=== PATIENT | male | born 1960 | race Caucasian/White ===

== ENCOUNTER 2018-04-04 06:08 | Inpatient (IN) | payer SELFPAY ==
[~2018-04-04] VITALS: Ht 188 cm; Wt 117.5 kg
[2018-04-04] VITALS (7 sets, daily range): BP systolic 103–140; BP diastolic 59–87; PULSE 70–90; RESP 17–20; TEMP 97.6–99.8; O2SAT 97–100
[~2018-04-04 06:08] MED LIST: LISI10TA3 PO; TERA1CAP3 PO
[2018-04-04] MEDS ORDERED: SODIUM CHLOR 0.9% 1000 ML INJ 1,000 ML IV SCH (07:04)
--- NOTE | 2018-04-04 07:10 | PD ---
HPI Chief Complaint: General Weakness Time Seen by Provider: 06:52 Travel History International Travel<30 days: No Contact w/Intl Traveler<30days: No Traveled to known affect area: No History of Present Illness HPI The patient is a 57-year-old male who presents to the emergency department for lethargy, epigastric discomfort, decreased oral intake, and black stool. The patient states his symptoms started 5 days ago with a fever that was as high as 101. The patient has been taking ibuprofen for the fever, states the fever improved, but then he developed reflux symptoms and epigastric discomfort. The patient states he has difficulty eating secondary to the epigastric discomfort. He now notes several episodes of black stool but is slightly loose. He denies any history of peptic ulcer disease, gastritis, or upper GI bleed. He does complain of diffuse lethargy and states he has difficulty lifting his head off of the bed. The patient does have a history of hypertension for which he takes lisinopril, however, has not taken his lisinopril in several days. He does note mild shortness of breath but denies any chest pain. He denies abdominal pain at rest, but does state he has abdominal discomfort in epigastrium area after eating. Symptoms are moderate. He does not currently have a primary physician. He denies any alcohol use. PFSH Past Medical History Arthritis: Yes Asthma: No Blood Disorders: No Anxiety: No Depression: No Heart Rhythm Problems: No Cancer: No Cardiovascular Problems: No High Cholesterol: No Chemotherapy: No Chest Pain: No Congestive Heart Failure: No COPD: No Cerebrovascular Accident: No Diabetes: No Endocrine: No GERD: No Genitourinary: No Hiatal Hernia: No Immune Disorder: No Musculoskeletal: Yes Neurologic: Yes Psychiatric: No Reproductive: No Respiratory: No Migraines: No Radiation Therapy: No Seizures: No Sleep Apnea: No Thyroid Disease: No Ulcer: No Tetanus Vaccination: < 5 Years Influenza Vaccination: No Past Surgical History Abdominal Surgery: Yes (hernia sx 28 years ago) Cardiac Surgery: No Ear Surgery: No Endocrine Surgery: No Eye Surgery: No Genitourinary Surgery: No Gynecologic Surgery: No Oral Surgery: No Thoracic Surgery: No Other Surgery: Yes (INGUINAL HERNIA REPAIR) Social History Alcohol Use: Yes (EVERY COUPLE DAYS, BEER, THURSDAY) Tobacco Use: No Substance Use: Yes (MARIJUANA, EVERY COUPLE OF DAYS) Allergies-Medications (Allergen,Severity, Reaction): Coded Allergies: No Known Allergies (Unverified Adverse Reaction, Unknown, 04/04/18) Reported Meds & Prescriptions Reported Meds & Active Scripts Active Lisinopril 10 Mg Tab 10 Mg PO BID Review of Systems Except as stated in HPI: all other systems reviewed are Neg General / Constitutional: Positive: Fever HENT: Positive: Lightheadedness Cardiovascular: No: Chest Pain or Discomfort Respiratory: Positive: Shortness of Breath Gastrointestinal: Positive: Nausea, Abdominal Pain (Epigastric discomfort after eating), Changes in Bowel Habits, No: Vomiting, Diarrhea Musculoskeletal: Positive: Weakness Skin: Positive Other (Notes a chronic ulceration on the bottom of the left foot ) Neurologic: Positive: Weakness, Other (History of neuropathy on the feet) Endocrine: No: Other (Denies any history of diabetes) Physical Exam Narrative GENERAL: Awake, alert, somewhat lethargic 57-year-old male who appears his stated age and is in no acute respiratory distress. SKIN: Focused skin assessment warm/dry. HEAD: Atraumatic. Normocephalic. EYES: Pupils equal and round. 3 mm bilateral and reactive. EOMs are intact. ENT: No nasal bleeding or discharge. Slightly dry mucous membranes. NECK: Trachea midline. No JVD. CARDIOVASCULAR: Regular rate and rhythm. No murmur appreciated. Heart rate in the 80s. RESPIRATORY: No accessory muscle use. Clear to auscultation. Breath sounds equal bilaterally. GASTROINTESTINAL: Abdomen soft, non-tender, nondistended. No rebound tenderness. Rectal: Stool is black on digital exam that is grossly guaiac positive. MUSCULOSKELETAL: Superficial, chronic appearing wound on the bottom of the left foot over the first MTP. NEUROLOGICAL: Awake and alert. No obvious cranial nerve deficits. Motor grossly within normal limits. Normal speech. PSYCHIATRIC: Appropriate mood and affect; insight and judgment normal. Data Data Last Documented VS Vital Signs Date Time Temp Pulse Resp B/P (MAP) Pulse Ox O2 Delivery O2 Flow Rate FiO2 04/04/18 08:30 71 18 116/67 (83) 99 04/04/18 07:51 Room Air 04/04/18 06:18 97.6 Orders Orders Complete Blood Count With Diff (04/04/18 07:04) Comprehensive Metabolic Panel (04/04/18 07:04) Lipase (04/04/18 07:04) Prothrombin Time / Inr (Pt) (04/04/18 07:04) Act Partial Throm Time (Ptt) (04/04/18 07:04) Urinalysis - C+S If Indicated (04/04/18 07:04) Type And Screen (04/04/18 07:04) Chest, Single Ap (04/04/18 07:04) Ecg Monitoring (04/04/18 07:04) Iv Access Insert/Monitor (04/04/18 07:04) Orthostatic Vital Signs (04/04/18 07:04) Oximetry (04/04/18 07:04) Pantoprazole Inj (Protonix Inj) (04/04/18 07:15) Sodium Chlor 0.9% 1000 Ml Inj (Ns 1000 M (04/04/18 07:04) Sodium Chloride 0.9% Flush (Ns Flush) (04/04/18 07:15) Troponin I (04/04/18 07:04) Creatine Kinase (Cpk) (04/04/18 07:04) Electrocardiogram (04/04/18 06:33) Admit Order (Ed Use Only) (04/04/18 09:08) Labs Laboratory Tests Test 04/04/18 07:30 04/04/18 07:45 04/04/18 08:30 White Blood Count 9.6 TH/MM3 Red Blood Count 5.52 MIL/MM3 Hemoglobin 16.4 GM/DL Hematocrit 47.5 % Mean Corpuscular Volume 85.9 FL Mean Corpuscular Hemoglobin 29.7 PG Mean Corpuscular Hemoglobin Concent 34.5 % Red Cell Distribution Width 13.5 % Platelet Count 315 TH/MM3 Mean Platelet Volume 8.3 FL Neutrophils (%) (Auto) 68.9 % Lymphocytes (%) (Auto) 18.5 % Monocytes (%) (Auto) 11.2 % Eosinophils (%) (Auto) 0.3 % Basophils (%) (Auto) 1.1 % Neutrophils # (Auto) 6.6 TH/MM3 Lymphocytes # (Auto) 1.8 TH/MM3 Monocytes # (Auto) 1.1 TH/MM3 Eosinophils # (Auto) 0.0 TH/MM3 Basophils # (Auto) 0.1 TH/MM3 CBC Comment DIFF FINAL Differential Comment Blood Urea Nitrogen 48 MG/DL Creatinine 1.36 MG/DL Random Glucose 113 MG/DL Total Protein 8.5 GM/DL Albumin 3.1 GM/DL Calcium Level 9.3 MG/DL Alkaline Phosphatase 81 U/L Aspartate Amino Transf (AST/SGOT) 19 U/L Alanine Aminotransferase (ALT/SGPT) 20 U/L Total Bilirubin 0.4 MG/DL Sodium Level 136 MEQ/L Potassium Level 3.8 MEQ/L Chloride Level 102 MEQ/L Carbon Dioxide Level 20.5 MEQ/L Anion Gap 14 MEQ/L Estimat Glomerular Filtration Rate 54 ML/MIN Total Creatine Kinase 42 U/L Troponin I LESS THAN 0.02 NG/ML Lipase 110 U/L Urine Color YELLOW Urine Turbidity HAZY Urine pH 5.5 Urine Specific [place] 1.027 Urine Protein 30 mg/dL Urine Glucose (UA) NEG mg/dL Urine Ketones NEG mg/dL Urine Occult Blood NEG Urine Nitrite NEG Urine Bilirubin NEG Urine Urobilinogen LESS THAN 2.0 MG/DL Urine Leukocyte Esterase NEG Urine RBC 1 /hpf Urine WBC 2 /hpf Urine Squamous Epithelial Cells 1 /hpf Urine Hyaline Casts 13 /lpf Urine Granular Casts 11 /lpf Urine Mucus FEW /lpf Microscopic Urinalysis Comment CULT NOT INDICATED Prothrombin Time 10.9 SEC Prothromb Time International Ratio 1.1 RATIO Activated Partial Thromboplast Time 26.8 SEC MDM Medical Decision Making Medical Screen Exam Complete: Yes Emergency Medical Condition: Yes Medical Record Reviewed: Yes Interpretation(s) EKG reveals junctional rhythm with inverted P waves. Q waves noted in lead II, III, and aVF. Laboratory Tests Test 04/04/18 07:30 04/04/18 07:45 04/04/18 08:30 White Blood Count 9.6 TH/MM3 Red Blood Count 5.52 MIL/MM3 Hemoglobin 16.4 GM/DL Hematocrit 47.5 % Mean Corpuscular Volume 85.9 FL Mean Corpuscular Hemoglobin 29.7 PG Mean Corpuscular Hemoglobin Concent 34.5 % Red Cell Distribution Width 13.5 % Platelet Count 315 TH/MM3 Mean Platelet Volume 8.3 FL Neutrophils (%) (Auto) 68.9 % Lymphocytes (%) (Auto) 18.5 % Monocytes (%) (Auto) 11.2 % Eosinophils (%) (Auto) 0.3 % Basophils (%) (Auto) 1.1 % Neutrophils # (Auto) 6.6 TH/MM3 Lymphocytes # (Auto) 1.8 TH/MM3 Monocytes # (Auto) 1.1 TH/MM3 Eosinophils # (Auto) 0.0 TH/MM3 Basophils # (Auto) 0.1 TH/MM3 CBC Comment DIFF FINAL Differential Comment Blood Urea Nitrogen 48 MG/DL Creatinine 1.36 MG/DL Random Glucose 113 MG/DL Total Protein 8.5 GM/DL Albumin 3.1 GM/DL Calcium Level 9.3 MG/DL Alkaline Phosphatase 81 U/L Aspartate Amino Transf (AST/SGOT) 19 U/L Alanine Aminotransferase (ALT/SGPT) 20 U/L Total Bilirubin 0.4 MG/DL Sodium Level 136 MEQ/L Potassium Level 3.8 MEQ/L Chloride Level 102 MEQ/L Carbon Dioxide Level 20.5 MEQ/L Anion Gap 14 MEQ/L Estimat Glomerular Filtration Rate 54 ML/MIN Total Creatine Kinase 42 U/L Troponin I LESS THAN 0.02 NG/ML Lipase 110 U/L Urine Color YELLOW Urine Turbidity HAZY Urine pH 5.5 Urine Specific [place] 1.027 Urine Protein 30 mg/dL Urine Glucose (UA) NEG mg/dL Urine Ketones NEG mg/dL Urine Occult Blood NEG Urine Nitrite NEG Urine Bilirubin NEG Urine Urobilinogen LESS THAN 2.0 MG/DL Urine Leukocyte Esterase NEG Urine RBC 1 /hpf Urine WBC 2 /hpf Urine Squamous Epithelial Cells 1 /hpf Urine Hyaline Casts 13 /lpf Urine Granular Casts 11 /lpf Urine Mucus FEW /lpf Microscopic Urinalysis Comment CULT NOT INDICATED Last Impressions Chest X-Ray 04/04/18 0704 Signed Impressions: CONCLUSION: Negative examination. Differential Diagnosis Differential diagnosis includes acute kidney injury, acute renal failure, dehydration, upper GI bleed, peptic ulcer disease, gastritis, electrolyte abnormality, pneumonia, UTI, symptomatic anemia. Narrative Course IV was established, labs are drawn and sent, and the patient was placed on cardiac telemetry monitoring and continuous pulse oximetry monitoring. EKG was ordered and interpreted. Chest x-ray was obtained. Type and screen was ordered. The patient was administered IV fluids and Protonix. The patient's hemoglobin was within the normal range, however, BUN was elevated at 48 with a creatinine of 1.36 consistent with azotemia, possibly from upper GI bleed and dehydration. The patient's blood pressure initially was in the systolic 90s, however, did improve with IV fluids. The patient still has continuing lethargy , he does appear to have a GI upper GI bleed, may be secondary to peptic ulcer disease from nonsteroidal anti-inflammatory use as well as underlying dehydration with hemoconcentration. Therefore, the patient will be 23 hour observation. He may benefit from serial CBCs, IV hydration, and if bleeding persists, evaluation by gastroenterology. [facility] Point of Care Internal Pos. & Neg. Controls: Passed Fecal Specimen Occult Blood: Positive Physician Communication Physician Communication The on-call medical service was paged for 23 hour observation. I discussed the patient with the resident who agree with admission to Dr. Johnson. Diagnosis Primary Impression: Upper GI bleed Additional Impression: Dehydration Admitting Information Admitting Physician Requests: Observation Condition: Stable Cory Packer MD Apr 04, 2018 07:10
[2018-04-04] MEDS ORDERED: PANTOPRAZOLE SODIUM 40 MG VIAL IVP ONE (07:15)
[2018-04-04] MEDS ORDERED: SODIUM CHLORIDE 0.9% FLUSH 10 ML FLUSH IVF PRN (07:15)
--- NOTE | 2018-04-04 07:35 | RADRPT ---
EXAM DATE: 04/04/2018 7:25 AM EDT AGE/SEX: 57 years / Male INDICATIONS: Short of breath. Weakness. CLINICAL DATA: This is the patient's initial encounter. Patient reports that signs and symptoms have been present for 1 week and indicates a pain score of 0/10. MEDICAL/SURGICAL HISTORY: None. . Inguinal hernia repair. COMPARISON: No prior exams available for comparison. FINDINGS: A single AP view of the chest demonstrates the lungs to be symmetrically aerated without evidence of mass, infiltrate or effusion. The cardiomediastinal contours are unremarkable. Osseous structures a re intact. CONCLUSION: Negative examination. Electronically signed by: Shilo Cantu MD 04/04/2018 7:34 AM EDT
[2018-04-04 08:02] LABS: AUTOMATED NEUTROPHIL # 6.6 TH/MM3 (1.8-7.7); BASOPHIL # 0.1 TH/MM3 (0-0.2); BASOPHIL % 1.1 % (0.0-2.0); EOSINOPHIL % 0.3 % (0.0-4.0); HEMATOCRIT 47.5 % (39.0-51.0); HEMOGLOBIN 16.4 GM/DL (13.0-17.0); LYMPH % 18.5 % (9.0-44.0); LYMPHOCYTE # 1.8 TH/MM3 (1.0-4.8); MEAN CELL VOLUME 85.9 FL (80.0-100.0); MEAN CORPUSCULAR HEMOGLOBIN 29.7 PG (27.0-34.0); MEAN CORPUSCULAR HGB CONC 34.5 % (32.0-36.0); MEAN PLATELET VOLUME 8.3 FL (7.0-11.0); MONO % 11.2 % (0.0-8.0); MONOCYTE # 1.1 TH/MM3 (0-0.9); NEUT % 68.9 % (16.0-70.0); PLATELET COUNT 315 TH/MM3 (150-450); RED BLOOD COUNT 5.52 MIL/MM3 (4.50-5.90); RED CELL DISTRIBUTION WIDTH 13.5 % (11.6-17.2); WHITE BLOOD COUNT 9.6 TH/MM3 (4.0-11.0)
[2018-04-04 08:12] LABS: ALT (GPT) 20 U/L (12-78)
[2018-04-04 08:15] LABS: BILIRUBIN, URINE NEG (NEG); BLOOD, URINE NEG (NEG); GLUCOSE,URINE NEG (NEG); HYALINE CAST, URINE 13 /lpf (RARE); KETONE, URINE NEG (NEG); MUCUS URINE FEW /lpf (OCC); NITRITE,URINE NEG (NEG); PH, URINE 5.5 (5.0-8.5); SQUAMOUS EPITHELIAL CELL URINE 1 /hpf (0-5); URINE COLOR YELLOW (YELLW/STRAW); URINE LEUKOCYTE ESTERASE NEG (NEG)
[2018-04-04 08:21] LABS: ALBUMIN 3.1 GM/DL (3.4-5.0); ALKALINE PHOSPHATASE 81 U/L (45-117); AST (GOT) 19 U/L (15-37); BICARBONATE 20.5 MEQ/L (21.0-32.0); BLOOD UREA NITROGEN 48 MG/DL (7-18); CALCIUM 9.3 MG/DL (8.5-10.1); CHLORIDE 102 MEQ/L (98-107); CREATININE 1.36 MG/DL (0.60-1.30); GLOMERULAR FILTRATION RATE 54 ML/MIN (>89); GLUCOSE,RANDOM 113 MG/DL (74-106); SODIUM (NA) 136 MEQ/L (136-145); TOTAL BILIRUBIN ADULT 0.4 MG/DL (0.2-1.0); TOTAL PROTEIN 8.5 GM/DL (6.4-8.2); TROPONIN I LESS THAN 0.02 NG/ML (0.02-0.05)
[2018-04-04 08:50] LABS: INTERNATIONAL NORMALIZED RATIO 1.1 RATIO; PROTHROMBIN TIME - PATIENT 10.9 SEC (9.8-11.6)
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
[2018-04-04] MEDS ORDERED: SODIUM CHLORIDE 0.9% FLUSH 10 ML FLUSH IV FLUSH PRN (09:45)
[2018-04-04] MEDS ORDERED: SODIUM CHLORID 0.9% 500 ML INJ 500 ML IV ONE (11:30)
--- NOTE | 2018-04-04 14:28 | EKG ---
Date Performed: 04/04/2018 Time Performed: 06:33:01 PTAGE: 57 years EKG: JUNCTIONAL RHYTHM INFERIOR MYOCARDIAL INFARCTION ANTEROLATERAL MYOCARDIAL INFARCTION ABNORM AL ECG NO PREVIOUS TRACING DOCTOR: Deion Huitron Interpretating Date/Time 04/04/2018 14:25:57
[2018-04-04] MEDS: SODIUM CHLOR 0.9% 1000 ML INJ 1,000 ML IV SCH ×3 (15:39→20:24)
[2018-04-04] MEDS: SODIUM CHLORIDE 0.9% FLUSH 10 ML FLUSH IV FLUSH SCH (20:23)
[2018-04-04] MEDS: PANTOPRAZOLE SODIUM 40 MG VIAL IV PUSH SCH (20:24)
[2018-04-04 20:59] LABS: HEMATOCRIT 41.5 % (39.0-51.0)
[2018-04-04 21:51] LABS: HEMATOCRIT 41.8 % (39.0-51.0); HEMOGLOBIN 14.1 GM/DL (13.0-17.0)
[2018-04-05] VITALS (7 sets, daily range): BP systolic 128–154; BP diastolic 74–82; PULSE 66–76; RESP 16–20; TEMP 97.7–100.7; O2SAT 95–99
[2018-04-05] MEDS: SODIUM CHLOR 0.9% 1000 ML INJ 1,000 ML IV SCH ×3 (04:32→17:30)
[2018-04-05 07:55] LABS: AUTOMATED NEUTROPHIL # 4.7 TH/MM3 (1.8-7.7); BASOPHIL # 0.1 TH/MM3 (0-0.2); BASOPHIL % 0.8 % (0.0-2.0); EOSINOPHIL # 0.1 TH/MM3 (0-0.4); EOSINOPHIL % 1.1 % (0.0-4.0); HEMATOCRIT 37.7 % (39.0-51.0); HEMOGLOBIN 12.9 GM/DL (13.0-17.0); LYMPH % 25.3 % (9.0-44.0); LYMPHOCYTE # 1.8 TH/MM3 (1.0-4.8); MEAN CELL VOLUME 86.9 FL (80.0-100.0); MEAN CORPUSCULAR HEMOGLOBIN 29.7 PG (27.0-34.0); MEAN CORPUSCULAR HGB CONC 34.2 % (32.0-36.0); MEAN PLATELET VOLUME 7.8 FL (7.0-11.0); MONO % 8.2 % (0.0-8.0); MONOCYTE # 0.6 TH/MM3 (0-0.9); NEUT % 64.6 % (16.0-70.0); PLATELET COUNT 254 TH/MM3 (150-450); RED BLOOD COUNT 4.34 MIL/MM3 (4.50-5.90); RED CELL DISTRIBUTION WIDTH 13.7 % (11.6-17.2); WHITE BLOOD COUNT 7.3 TH/MM3 (4.0-11.0)
[2018-04-05 08:19] LABS: ALBUMIN 2.5 GM/DL (3.4-5.0); AST (GOT) 9 U/L (15-37); BICARBONATE 22.6 MEQ/L (21.0-32.0); BLOOD UREA NITROGEN 22 MG/DL (7-18); CALCIUM 8.2 MG/DL (8.5-10.1); CHLORIDE 110 MEQ/L (98-107); CREATININE 0.78 MG/DL (0.60-1.30); GLOMERULAR FILTRATION RATE 102 ML/MIN (>89); GLUCOSE,RANDOM 89 MG/DL (74-106); SODIUM (NA) 142 MEQ/L (136-145)
[2018-04-05] MEDS: SODIUM CHLORIDE 0.9% FLUSH 10 ML FLUSH IV FLUSH SCH ×2 (08:23→20:05)
[2018-04-05] MEDS: PANTOPRAZOLE SODIUM 40 MG VIAL IV PUSH SCH ×2 (08:24→20:05)
[2018-04-05 08:26] LABS: ALKALINE PHOSPHATASE 59 U/L (45-117); ALT (GPT) 13 U/L (12-78); TOTAL BILIRUBIN ADULT 0.3 MG/DL (0.2-1.0); TOTAL PROTEIN 6.4 GM/DL (6.4-8.2)
[2018-04-05] MEDS ORDERED: INFLUENZA VIRUS VACCINE (QUADRIVALENT) 0.5 ML SYR IM ONE (10:00)
--- NOTE | 2018-04-05 11:21 | HHI.FPPN ---
Subjective Remarks Patient states that he is doing well. Vitals are 128/74-154/81. Has had no further episodes of diarrhea or black bowel movements. States he feels alot better. (Rebecca Alvarez MD R1) Objective Vitals Vital Signs Date Time Temp Pulse Resp B/P (MAP) Pulse Ox O2 Delivery O2 Flow Rate FiO2 04/05/18 08:01 97.9 67 17 133/76 (95) 99 04/05/18 04:00 97.9 72 16 128/74 (92) 96 04/05/18 00:00 97.7 76 17 144/81 (102) 98 04/04/18 20:00 99.8 70 17 121/70 (87) 98 04/04/18 15:45 97.9 73 20 140/87 (104) 98 04/04/18 13:53 04/04/18 12:30 71 18 114/69 (84) 100 Room Air I/O 04/04/18 04/04/18 04/04/18 04/05/18 04/05/18 04/05/18 07:00 15:00 23:00 07:00 15:00 23:00 Intake Total 999 ml 999 ml 1000 ml Output Total 425 ml Balance 999 ml 574 ml 1000 ml Intake Oral 0 ml 0 ml IV Total 999 ml 999 ml 1000 ml Output Urine Total 425 ml # Voids 0 (Rebecca Alvarez MD R1) Result Diagram: 04/05/18 0630 04/05/18 0630 Objective Remarks O. CONSTITUTIONAL/GEN: This is an older gentleman resting in bed in no acute distress. EYES: EOMI. ENT: Mouth and pharynx normal. LUNGS: clear A-P, respiratory effort is normal. CARDIOVASCULAR: RR without murmur or gallop. GI/ABD: soft without masses, slight tenderness in the epigastric region. NEURO: No focal deficits. Gait is normal SKIN: color normal, no rashes noted. HEME/LYMPH: no bruising or petechia. MUSC: No swelling. Bilateral bunions noted in the lower extremities. Eschar under the 1st metatarsal of the left foot. PSYCH/MENTAL STATUS: Alert and oriented x 3. (Rebecca Alvarez MD R1) A/P Assessment and Plan 57 y/o M admitted for suspected upper GI bleed and dehydration. GI consult pending. IV PPI BID,NPO, and IVF @ maintenance for now until GI recs. (Rebecca Alvarez MD R1) Attending Attestation Patient seen and examined. Case reviewed and discussed with the resident team. Agree with plan of care as discussed with me and documented in the resident note. (Phyllis Johnson MD) Problem List: (1) Melena ICD Codes: K92.1 - Melena Status: Acute Plan: Hemoccult + in the ED Diff: UGI from ulcer v C. diff v gastritis H/H stable IV Protonix BID IVF @ maintenance rate 160 mls/hr GI consulted NPO today until further notification from GI CBC daily (2) Dehydration ICD Codes: E86.0 - Dehydration Status: Acute Plan: IVF @ maintenance rate (3) NELIDA (acute kidney injury) ICD Codes: N17.9 - Acute kidney failure, unspecified Plan: BUN/Cr improved from 48/1.36 to 22/0.78 IVF Avoid nephrotoxic agents (4) Eschar of foot ICD Codes: R23.4 - Changes in skin texture Status: Chronic Plan: Per physical exam. Likely chronic. Wound ostomy consulted. (5) Diarrhea ICD Codes: R19.7 - Diarrhea, unspecified Status: Acute Plan: Recent abx use Diff: UGI v LGI. Unlikely C.diff C.diff lab canceled See above plan (6) Hypertension ICD Codes: I10 - Essential (primary) hypertension Status: Chronic Plan: Home med lisinopril 10 mg daily (7) FEN Plan: Fluids: IVF @ maintenance Electrolytes: not indicated Nutrition: NPO DVT prophy: SCDs only GI prophy: IV Protonix BID (Rebecca Alvarez MD R1) Problem Qualifiers (1) Diarrhea: Qualified Codes: R19.7 - Diarrhea, unspecified Rebecca Alvarez MD R1 Apr 05, 2018 11:21 Phyllis Johnson MD Apr 05, 2018 15:03
[2018-04-05] MEDS ORDERED: PROPOFOL 200 MG/20 ML AMP IV ONE (12:00)
[2018-04-05] MEDS ORDERED: LIDOCAINE HCL 1% PF 5 ML SYRINGE OTHER ONE (12:00)
--- NOTE | 2018-04-05 16:48 | GIPROC ---
[facility] [address] [facility]. [facility], [id number] EGD PROCEDURE REPORT EXAM DATE: 04/05/2018 PATIENT NAME: Chandana Newman MR #: [id number] BIRTHDATE: 1960 ATTENDING: Dwaine Renee MD ORDER #: [id number] AUTOMATED MANUFACTURING INSTRUCTOR: Cara Brewer and Marilee Oakes STATUS: inpatient INDICATIONS: The patient is a 57 yr old male here for an EGD due to melena PROCEDURE PERFORMED: EGD w/ biopsy MEDICATIONS: None and Per Anesthesia. TOPICAL ANESTHETIC: none CONSENT: The patient understands the risks and benefits of the procedure and understands that these risks include, but are not limited to: sedation, allergic reaction, infection, perforation and/or bleeding. Alternative means of evaluation and treatment include, among others: physical exam, x-rays, and/or surgical intervention. The patient elects to proceed with this endoscopic procedure. medical equipment was checked for proper function. Hand hygiene and appropriate measures for infection prevention was taken. After the risks, benefits and alternatives of the procedure were thoroughly explained, Informed consent was verified, confirmed and timeout was successfully executed by the treatment team. The patient was anesthetized with topical anesthesia and the Pentax [id number] endoscope was introduced through the mouth and advanced to the third portion of the duodenum. Retroflexion was performed and was normal The gastroscope was then slowly withdrawn and removed. ESOPHAGUS: There was LA Class C esophagitis noted. A medium sized non-bleeding, irregular shaped and clean-based ulcer was found in the lower third of the esophagus and at the gastroesophageal junction. Biopsies were taken at edge of the ulcer and at the center of the ulcer. A medium sized hiatal hernia was noted. STOMACH: There was mild gastritis in the gastric antrum. Multiple biopsies were performed. DUODENUM: Multiple medium sized non-bleeding non-bleeding, irregular shaped, clean-based and shallow ulcers were found in the 1st part of the duodenum and 2nd part duodenum. Biopsies were taken at edge of the ulcers and at the center of the ulcers. ADVERSE EVENTS: There were no complications. IMPRESSIONS: 1. There was LA Class C esophagitis noted 2. Medium sized ulcer was found in the lower third of the esophagus and at the gastroesophageal junction; biopsies were taken 3. Medium sized hiatal hernia 4. There was mild gastritis in the gastric antrum; multiple biopsies were performed 5. Multiple medium sized non-bleeding ulcers were found in the 1st part of the duodenum and 2nd part duodenum; biopsies were taken RECOMMENDATIONS: 1. Await biopsy results. Biopsy results will not be ready for 7-10 days. If you don't hear from us in two weeks, call our office for biopsy results. 2. Continue PPI 3. Avoid NSAIDS PATIENT CONDITION: stable DISPOSITION: Observation REPEAT EXAM: NONE Dwaine Renee MD eSigned: Dwaine Renee MD 04/05/2018 4:48 PM cc: PATIENT NAME: Chandana Newman MR#: [id number]
[2018-04-06] VITALS (8 sets, daily range): BP systolic 148–160; BP diastolic 73–89; PULSE 66–96; RESP 20; TEMP 90.6–101.7; O2SAT 96–100
[2018-04-06] MEDS: SODIUM CHLOR 0.9% 1000 ML INJ 1,000 ML IV SCH (02:14)
--- NOTE | 2018-04-06 07:33 | PD.CONS ---
HPI History of Present Illness This is a 57 year old male who was admitted on 04/04/2018 with complaints of nausea and unable to keep any type of food or drink down. Patient states that he has also had a high fever and a sore throat and had been taking multiple ibuprofens for his fever and generalized malaise. According to the record he also took an antibiotic that a friend gave him and currently the fevers have subsided. He is now left with the continued burning in the epigastric region and within the past 24 hours is now noting dark melena loose stools. Patient does note approximately 10 pound weight loss over the past week secondary to his minimal appetite and decreased p.o. intake current hemoglobin 16.4, PT/INR 1.1, normal LFTs. Patient currently denies any tobacco or alcohol intake. No previous EGD or colonoscopy no family history of colon cancer but he does note Crohn's disease in his family history. Currently denies any dysphasia no current vomiting but positive for dyspepsia and nausea. He denies any previous history of GI bleeding. (Phyllis Pearson) [facility] Past Medical History Hypertension Recent NSAID use Past Surgical History According to the record toe removal approximately 2 years ago (Phyllis Pearson) Coded Allergies: No Known Allergies (Unverified Allergy, Unknown, 04/04/18) Medications Administered Medications Medications (Trade) Dose Ordered Sig/Caprice Route PRN Reason Start Time Stop Time Status Last Admin Dose Admin Sodium Chloride (NS Flush) 2 ml BID IV FLUSH 04/04/18 21:00 04/05/18 20:05 Sodium Chloride 1,000 ml @ 160 mls/hr [id number] IV 04/04/18 09:33 04/06/18 02:14 Pantoprazole Sodium (Protonix Inj) 40 mg BID IV PUSH 04/04/18 21:00 04/05/18 20:05 Family History Crohn's disease, no colon cancer Social History Denies any current tobacco or alcohol use previous history of some marijuana and cocaine many many years ago. Rare methamphetamine use. (Phyllis Pearson) Review of Systems Constitutional: COMPLAINS OF: Fatigue, Fever Gastrointestinal: COMPLAINS OF: Black stools, Diarrhea, Nausea (Phyllis Pearson) GI Exam Vitals I&O Vital Signs Date Time Temp Pulse Resp B/P (MAP) Pulse Ox O2 Delivery O2 Flow Rate FiO2 04/06/18 04:00 98.1 96 20 158/89 (112) 97 04/06/18 00:00 98.3 67 20 158/81 (106) 96 04/05/18 20:00 100.7 74 20 154/82 (106) 98 04/05/18 16:01 99.8 66 17 150/80 (103) 98 04/05/18 14:28 95 21 04/05/18 12:18 99.1 74 17 154/81 (105) 98 04/05/18 08:01 97.9 67 17 133/76 (95) 99 I/O 04/05/18 04/05/18 04/05/18 04/06/18 04/06/18 04/06/18 06:59 14:59 22:59 06:59 14:59 22:59 Intake Total 999 ml 1000 ml 1150 ml 1120 ml Output Total 425 ml 700 ml 800 ml Balance 574 ml 1000 ml 450 ml 320 ml Intake Oral 0 ml 0 ml 120 ml IV Total 999 ml 1000 ml 1000 ml 1000 ml Other 150 ml Output Urine Total 425 ml 700 ml 800 ml # Bowel Movements 0 0 Imaging Last Impressions Chest X-Ray 04/04/18 0704 Signed Impressions: CONCLUSION: Negative examination. Physical Examination HEENT: normocephalic; atraumatic; no jaundice. NECK: Neck is supple, CHEST: Chest is clear to auscultation and percussion. CARDIAC: Regular rate and rhythm ABDOMEN: Round, soft, nondistended, mild epigastric tenderness; no hepatosplenomegaly; bowel sounds are present in all four quadrants. EXTREMITIES: No edema. SKIN: no rash; no jaundice. ANATOMY PROFESSOR: No focal deficits; alert and oriented times three. (Phyllis Pearson) Assessment and Plan Assessment: (1) Upper GI bleed ICD Codes: K92.2 - Gastrointestinal hemorrhage, unspecified Status: Acute Plan Upper GI bleeding probable secondary to recent excessive NSAID use but also need to rule out esophagitis and gastritis. Melena stools probably secondary to #1, loose dark 57-year-old male with approximately 1 week of symptoms with fever malaise aching nausea vomiting, and epigastric tenderness and excessive ibuprofen use. He also noted over the past day black melena stools. No history of EGD or colonoscopy no family history of colon cancer but does note Crohn's disease. Current hemoglobin 16.4, INR 1.1, normal LFTs. Plan N.p.o. Consent for EGD in a.m. Anti-medics PPI Further recommendations to follow Patient was seen per myself and Dr. Renee, this note was written on his behalf. (Phyllis Pearson) Physician Comments Seen and examined, plan as above, Further recommendations to follow. (Dwaine Renee MD) Phyllis Pearson Apr 06, 2018 07:33 Dwaine Renee MD Apr 06, 2018 09:39
[2018-04-06] MEDS: PANTOPRAZOLE SODIUM 40 MG VIAL IV PUSH SCH (08:28)
[2018-04-06] MEDS: SODIUM CHLORIDE 0.9% FLUSH 10 ML FLUSH IV FLUSH SCH ×2 (08:29→20:53)
[2018-04-06] MEDS: LISINOPRIL 10 MG TAB PO SCH (08:29)
[2018-04-06 08:34] LABS: HEMATOCRIT 35.5 % (39.0-51.0); HEMOGLOBIN 12.1 GM/DL (13.0-17.0); MEAN CELL VOLUME 85.8 FL (80.0-100.0); MEAN CORPUSCULAR HEMOGLOBIN 29.4 PG (27.0-34.0); MEAN CORPUSCULAR HGB CONC 34.2 % (32.0-36.0); MEAN PLATELET VOLUME 7.3 FL (7.0-11.0); PLATELET COUNT 250 TH/MM3 (150-450); RED BLOOD COUNT 4.13 MIL/MM3 (4.50-5.90); RED CELL DISTRIBUTION WIDTH 13.1 % (11.6-17.2)
[2018-04-06 09:11] LABS: BICARBONATE 23.7 MEQ/L (21.0-32.0); CALCIUM 8.2 MG/DL (8.5-10.1); CREATININE 0.74 MG/DL (0.60-1.30)
[2018-04-06] MEDS ORDERED: PROT40TA PO (09:59)
--- NOTE | 2018-04-06 09:59 | HHI.DCPOC ---
Discharge Care Plan Diagnosis: (1) Upper GI bleed Goals to Promote Your Health * To prevent worsening of your condition and complications * To maintain your health at the optimal level Directions to Meet Your Goals Take your medications as prescribed Follow your dietary instruction Follow activity as directed Keep your appointments as scheduled Take your immunizations and boosters as scheduled If your symptoms worsen call your PCP, if no PCP go to Urgent Care Center or Emergency Room Smoking is Dangerous to Your Health. Avoid second hand smoke Call the 24-hour hour crisis hotline for domestic abuse at Rebecca Alvarez MD R1 Apr 06, 2018 09:59
--- NOTE | 2018-04-06 11:12 | HHI.FPPN ---
Subjective Remarks Vitals stable. No concerns or complains. No episodes of bleeding. Tolerating food. (Rebecca Alvarez MD R1) Objective Vitals Vital Signs Date Time Temp Pulse Resp B/P (MAP) Pulse Ox O2 Delivery O2 Flow Rate FiO2 04/06/18 04:00 98.1 96 20 158/89 (112) 97 04/06/18 00:00 98.3 67 20 158/81 (106) 96 04/05/18 20:00 100.7 74 20 154/82 (106) 98 04/05/18 16:01 99.8 66 17 150/80 (103) 98 04/05/18 14:28 95 21 04/05/18 12:18 99.1 74 17 154/81 (105) 98 I/O 04/05/18 04/05/18 04/05/18 04/06/18 04/06/18 04/06/18 07:00 15:00 23:00 07:00 15:00 23:00 Intake Total 999 ml 1000 ml 1150 ml 1120 ml 100 ml Output Total 425 ml 700 ml 800 ml Balance 574 ml 1000 ml 450 ml 320 ml 100 ml Intake Oral 0 ml 0 ml 120 ml IV Total 999 ml 1000 ml 1000 ml 1000 ml 100 ml Other 150 ml Output Urine Total 425 ml 700 ml 800 ml # Bowel Movements 0 0 (Rebecca Alvarez MD R1) Result Diagram: 04/06/18 0804/06/18 08 Objective Remarks O. CONSTITUTIONAL/GEN: This is an older gentleman resting in bed in no acute distress. EYES: EOMI. ENT: Mouth and pharynx normal. LUNGS: clear A-P, respiratory effort is normal. CARDIOVASCULAR: RR without murmur or gallop. GI/ABD: soft without masses, no tenderness. MUSC: No swelling. Bilateral bunions noted in the lower extremities. PSYCH/MENTAL STATUS: Alert and oriented x 3. (Rebecca Alvarez MD R1) A/P Assessment and Plan 57 y/o M admitted for suspected upper GI bleed and dehydration. GI consulted, s/ p EGD on 04/05 w/findings of GI ulcer in esophagus, esophagitis, gastritis, multiple ulcers in the duodenum, and hiatal hernia. Bx taken, results in 1 week. F/u w/GI in 2 weeks. Discharge Planning DC today (Rebecca Alvarez MD R1) Discharge Planning Patient seen and examined. Case reviewed and discussed with the resident team. Agree with plan of care as discussed with me and documented in the resident note. (Phyllis Johnson MD) Problem List: (1) Melena ICD Codes: K92.1 - Melena Status: Resolved Plan: H/H stable Protonix PO daily on discharge F/u w/GI and PCP (2) Dehydration ICD Codes: E86.0 - Dehydration Status: Resolved (3) NELIDA (acute kidney injury) ICD Codes: N17.9 - Acute kidney failure, unspecified Status: Resolved (4) Eschar of foot ICD Codes: R23.4 - Changes in skin texture Status: Chronic Plan: Per physical exam. Likely chronic. Wound ostomy consulted. F/u care outpatient. (5) Diarrhea ICD Codes: R19.7 - Diarrhea, unspecified Status: Resolved Plan: Likely 2/2 UGI. (6) Hypertension ICD Codes: I10 - Essential (primary) hypertension Status: Chronic Plan: Home med lisinopril 10 mg daily UPDATE 04/06 @1548 Spoke to wound care nurse and Dr. Wade regarding wound. Advised against DC at this time. Based on discussion w/Dr. Wade, KORI and wound care consultation was ordered. Dr. Wade plan to see patient on . This was discussed w/attending Dr. Johnson. Wound care nurse reported that while examining patient, he expressed suicidal and homicidal thoughts for several days though no plan was expressed. Psych consult was verbally ordered. (Rebecca Alvarez MD R1) Problem Qualifiers (1) Diarrhea: Qualified Codes: R19.7 - Diarrhea, unspecified Rebecca Alvarez MD R1 Apr 06, 2018 11:12 Phyllis Johnson MD Apr 07, 2018 09:41
--- NOTE | 2018-04-06 11:45 | HHI.GIFU ---
Subjective Remarks Pt in bedside chair Denies nausea, vomiting, abdominal pain No BM since EGD Tolerating clear liquids, would like his diet advanced (Demetria Palacio) Objective Vitals I&O Vital Signs Date Time Temp Pulse Resp B/P (MAP) Pulse Ox O2 Delivery O2 Flow Rate FiO2 04/06/18 04:00 98.1 96 20 158/89 (112) 97 04/06/18 00:00 98.3 67 20 158/81 (106) 96 04/05/18 20:00 100.7 74 20 154/82 (106) 98 04/05/18 16:01 99.8 66 17 150/80 (103) 98 04/05/18 14:28 95 21 04/05/18 12:18 99.1 74 17 154/81 (105) 98 I/O 04/05/18 04/05/18 04/05/18 04/06/18 04/06/18 04/06/18 06:59 14:59 22:59 06:59 14:59 22:59 Intake Total 999 ml 1000 ml 1150 ml 1120 ml 100 ml Output Total 425 ml 700 ml 800 ml Balance 574 ml 1000 ml 450 ml 320 ml 100 ml Intake Oral 0 ml 0 ml 120 ml IV Total 999 ml 1000 ml 1000 ml 1000 ml 100 ml Other 150 ml Output Urine Total 425 ml 700 ml 800 ml # Bowel Movements 0 0 Laboratory Laboratory Tests Test 04/06/18 08:05 White Blood Count 6.0 Red Blood Count 4.13 Hemoglobin 12.1 Hematocrit 35.5 Mean Corpuscular Volume 85.8 Mean Corpuscular Hemoglobin 29.4 Mean Corpuscular Hemoglobin Concent 34.2 Red Cell Distribution Width 13.1 Platelet Count 250 Mean Platelet Volume 7.3 Blood Urea Nitrogen 11 Creatinine 0.74 Random Glucose 85 Calcium Level 8.2 Sodium Level 140 Potassium Level 3.9 Chloride Level 107 Carbon Dioxide Level 23.7 Anion Gap 9 Estimat Glomerular Filtration Rate 108 Imaging Last Impressions Chest X-Ray 04/04/18 0704 Signed Impressions: CONCLUSION: Negative examination. Physical Exam HEENT: Normocephalic; atraumatic CHEST: Even/unlabored CARDIAC: RRR ABDOMEN: Obese, soft, nontender, bowel sounds active EXTREMITIES: No clubbing, cyanosis, or edema. SKIN: Normal; no rash; no jaundice. LUNG SPLITTER: Alert and oriented times three. (Demetria Palacio) Assessment and Plan Assessment: (1) Upper GI bleed ICD Codes: K92.2 - Gastrointestinal hemorrhage, unspecified Status: Acute Plan Assessment: - Melena with excessive use of NSAIDs recently for fever S/P EGD yesterday --> Class C esophagitis. Medium sized ulcer in the lower 3rd of the esophagus and at the GE junction, biopsies taken. Medium sized hiatal hernia. Mild gastritis in the gastric antrum, multiple biopsies,. Multiple medium-sized non-bleeding ulcers were found in the 1st part of the duodenum and 2nd part of the duodenum, biopsies were taken H/H stable over night Pt tolerating clear liquids and would like diet advanced Plan: Gastrin level Advance diet as tolerated Monitor H/H Protonix Avoid NSAIDs EGD biopsy pending Our service will sign off, please reconsult as needed Have pt follow up with GI after DC Pt has been seen and examined by myself and Dr. Renee and this note is written on his behalf (Demetria Palacio) Physician Comments As above, will need outpatient follow up for Gastrin level and pathology results. (Dwaine Renee MD) Demetria Palacio Apr 06, 2018 11:45 Dwaine Renee MD Apr 06, 2018 12:03
[2018-04-06] MEDS ORDERED: LISINOPRIL 5 MG TAB PO SCH (15:00)
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
[2018-04-06] MEDS: ACETAMINOPHEN 325 MG TAB PO PRN (16:48)
--- NOTE | 2018-04-06 17:34 | RADRPT ---
EXAM DATE: 04/06/2018 5:06 PM EDT AGE/SEX: 57 years / Male INDICATIONS: Left foot swelling. Rule-out aseptic necrosis. CLINICAL DATA: This is the patient's initial encounter. Patient reports that signs and symptoms have been present for 4 - 6 days and indicates a pain score of 5/10. MEDICAL/SURGICAL HISTORY: None. . Inguinal hernia repair. COMPARISON: No prior exams available for comparison. FINDINGS: A severe bunion deformity is identified of the great toe. There is marked soft tissue swelling seen a long the medial margin of the first metatarsophalangeal joint. There are no destructive bone changes. There is no evidence of acute fracture. Arthritic changes seen along the mid foot. CONCLUSION: Severe bunion deformity of the great toe No destructive bone lesions or evidence of acute fracture. Midfoot arthropathy. Electronically signed by: Ricci Gutierrez MD 04/06/2018 5:32 PM EDT
[2018-04-07] VITALS (7 sets, daily range): BP systolic 120–151; BP diastolic 59–80; PULSE 60–80; RESP 16–20; TEMP 97.9–98.8; O2SAT 16–98
--- NOTE | 2018-04-07 08:20 | HHI.FPPN ---
Subjective Remarks Patient states he is doing well. No acute events overnight. No suicidal or homicidal ideations. States he was just ranting yesterday after stressful phone calls. States he has had chronic bilateral numbness in his feet. Saw Dr. Wade for general care some time ago. Wanted to stay at the hospital to have his wound looked at wound care physician. Afterwards, plans to leave. (Rebecca Alvarez MD R1) Objective Vitals Vital Signs Date Time Temp Pulse Resp B/P (MAP) Pulse Ox O2 Delivery O2 Flow Rate FiO2 04/07/18 04:00 98.6 65 20 120/59 (79) 95 04/07/18 00:00 98.8 71 20 151/73 (99) 98 04/06/18 21:55 97 04/06/18 20:00 90.6 66 20 157/79 (105) 99 04/06/18 16:00 101.7 66 20 160/73 (102) 100 04/06/18 12:00 99.5 73 20 148/75 (99) 99 04/06/18 11:44 97 21 I/O 04/06/18 04/06/18 04/06/18 04/07/18 04/07/18 04/07/18 07:00 15:00 23:00 07:00 15:00 23:00 Intake Total 1120 ml 100 ml 840 ml 120 ml Output Total 800 ml 900 ml 300 ml Balance 320 ml 100 ml -60 ml -180 ml Intake Oral 120 ml 840 ml 120 ml IV Total 1000 ml 100 ml Output Urine Total 800 ml 900 ml 300 ml # Bowel Movements 0 0 0 (Rebecca Alvarez MD R1) Result Diagram: 04/06/1880404/06/18804 Objective Remarks O. CONSTITUTIONAL/GEN: This is an older gentleman resting in bed in no acute distress. EYES: EOMI. ENT: Mouth and pharynx normal. LUNGS: clear A-P, respiratory effort is normal. CARDIOVASCULAR: RR without murmur or gallop. GI/ABD: soft without masses, no tenderness. MUSC: No swelling. Bilateral bunions noted in the lower extremities. PSYCH/MENTAL STATUS: Alert and oriented x 3. (Rebecca Alvarez MD R1) A/P Assessment and Plan 57 y/o M admitted for suspected upper GI bleed and dehydration. GI consulted, s/ p EGD on 04/05 w/findings of GI ulcer in esophagus, esophagitis, gastritis, multiple ulcers in the duodenum, and hiatal hernia. Bx taken, results in 1 week. F/u w/GI in 2 weeks. Staying until to be seen by Dr. Wade as patient has no PCP and is self-pay. Discharge Planning (Rebecca Alvarez MD R1) Attending Attestation Patient seen and examined. Case reviewed and discussed with the resident team. Agree with plan of care as discussed with me and documented in the resident note. (Phyllis Johnson MD) Problem List: (1) Eschar of foot ICD Codes: R23.4 - Changes in skin texture Status: Chronic Plan: Per physical exam. Likely chronic. KORI performed, report pending. Foot XR shows no signs of erosions/osteomyelitis. Wound ostomy consulted. Appreciate recommendations. To be seen by Dr. Wade on . (2) Hypertension ICD Codes: I10 - Essential (primary) hypertension Status: Chronic Plan: Home med lisinopril 10 mg daily Current ASCVD risk is 8.2%, mod-high intensity statin recommended Patient is self-pay and states he cannot afford medication at this time. Will touch base w/CM regarding further resources on discharge. (3) FEN Status: Chronic Plan: Fluids: PO Electrolytes: None Nutrition: reg DVT prophy: none indicated (Rebecca Alvarez MD R1) Problem Qualifiers (1) Hypertension: Qualified Codes: I10 - Essential (primary) hypertension Rebecca Alvarez MD R1 Apr 07, 2018 08:20 Phyllis Johnson MD Apr 07, 2018 13:32
[2018-04-07] MEDS: LISINOPRIL 10 MG TAB PO SCH ×2 (09:00→10:22)
[2018-04-07] MEDS: SODIUM CHLORIDE 0.9% FLUSH 10 ML FLUSH IV FLUSH SCH ×2 (10:21→21:52)
[2018-04-07] MEDS: PANTOPRAZOLE SOD 40 MG DELAYED RELEASE TAB PO SCH (10:22)
--- NOTE | 2018-04-07 12:48 | RADRPT ---
EXAM DATE: 04/07/2018 10:46 AM EDT AGE/SEX: 57 years / Male INDICATIONS: Eschar of foot CLINICAL DATA: This is the patient's initial encounter. Patient reports that signs and symptoms have been present for 3 months and indicates a pain score of 5/10. MEDICAL/SURGICAL HISTORY: . Hypertension, peripheral neuropathy, eschar of foot, acute kidney i njury, dehydration, diarrhea, upper GI bleed . Toe removal COMPARISON: [facility] [place] COMPLETE ([id number]), 04/06/2018. . TECHNIQUE: Four-cuff ankle and brachial pressures were obtained. Pulse cuff waveform tracings of the ankles were recorded, and ankle-brachial indices were calculated. PRESSURES (mmHg): Brachial (arm) : RIGHT: IV SITE, LEFT: 146 Ankle : RIGHT: 195, LEFT: 186 KORI : RIGHT: 1.34, LEFT: 1.27 TBI : RIGHT: 1.01, LEFT: 0.98 PULSED CUFF WAVEFORMS: Demonstrate normal amplitude bilaterally. CONCLUSION: 1. The KORI and TBI are within normal limits. Electronically signed by: Jordan Stallworth MD 04/07/2018 12:47 PM EDT
[2018-04-07] MEDS: ACETAMINOPHEN 325 MG TAB PO PRN (12:56)
[2018-04-08] VITALS: BP 134/70; PULSE 65; RESP 16; TEMP 98.5; O2SAT 96
[2018-04-08 04:00] VITALS: BP 138/77; PULSE 64; RESP 20; TEMP 98.9; O2SAT 96
--- NOTE | 2018-04-08 08:24 | HHI.FPPN ---
Subjective Remarks Patient is doing well. Vitals stable. (Rebecca Alvarez MD R1) Objective Vitals Vital Signs Date Time Temp Pulse Resp B/P (MAP) Pulse Ox O2 Delivery O2 Flow Rate FiO2 04/08/18 04:00 98.9 64 20 138/77 (97) 96 04/08/18 00:00 98.5 65 16 134/70 (91) 96 04/07/18 20:00 97.9 80 16 134/80 (98) 16 04/07/18 16:00 98.4 62 18 134/77 (96) 98 04/07/18 12:00 98.2 71 16 146/77 (100) 98 04/07/18 11:32 95 I/O 04/07/18 04/07/18 04/07/18 04/08/18 04/08/18 04/08/18 07:00 15:00 23:00 07:00 15:00 23:00 Intake Total 120 ml 480 ml Output Total 300 ml 300 ml Balance -180 ml 180 ml Intake Oral 120 ml 480 ml Output Urine Total 300 ml 300 ml # Bowel Movements 0 0 (Rebecca Alvarez MD R1) Result Diagram: 04/06/18 0805 04/06/18 0805 Objective Remarks O. CONSTITUTIONAL/GEN: This is an older gentleman resting in bed in no acute distress. EYES: EOMI. ENT: Mouth and pharynx normal. LUNGS: clear A-P, respiratory effort is normal. CARDIOVASCULAR: RR without murmur or gallop. GI/ABD: soft without masses, no tenderness. MUSC: No swelling. Bilateral bunions noted in the lower extremities. 2+ pulses intact in lower extremities. PSYCH/MENTAL STATUS: Alert and oriented x 3. (Rebecca Alvarez MD R1) A/P Assessment and Plan 57 y/o M admitted for suspected upper GI bleed and dehydration. GI consulted, s/ p EGD on 04/05 w/findings of GI ulcer in esophagus, esophagitis, gastritis, multiple ulcers in the duodenum, and hiatal hernia. Bx taken, results in 1 week. F/u w/GI in 2 weeks. Staying until today to be seen by Dr. Wade as patient has no PCP and is self- pay. Discharge Planning Today (Rebecca Alvarez MD R1) Attending Attestation Patient has been seen by Dr. Wade and wound on left plantar surface debrided. He will follow up with Dr. Wade as an outpatient. Patient seen and examined. Case reviewed and discussed with the resident team. Agree with plan of care as discussed with me and documented in the resident note. (Phyllis Johnson MD) Problem List: (1) Eschar of foot ICD Codes: R23.4 - Changes in skin texture Status: Chronic Plan: Per physical exam. Likely chronic. KORI performed, report pending. Foot XR shows no signs of erosions/osteomyelitis. Wound ostomy consulted. Appreciate recommendations. To be seen by Dr. Wade on today. (2) Hypertension ICD Codes: I10 - Essential (primary) hypertension Status: Chronic Plan: Home med lisinopril 10 mg daily Current ASCVD risk is 8.2%, mod-high intensity statin recommended Patient is self-pay and states he cannot afford medication at this time. Recommend outpatient. (3) FEN Status: Chronic Plan: Fluids: PO Electrolytes: None Nutrition: reg DVT prophy: none indicated (Rebecca Alvarez MD R1) Problem Qualifiers (1) Hypertension: Qualified Codes: I10 - Essential (primary) hypertension Rebecca Alvarez MD R1 Apr 08, 2018 08:24 Phyllis Johnson MD Apr 08, 2018 12:42
[2018-04-08 09:00] VITALS: BP 167/89; PULSE 64; RESP 20; TEMP 97.8; O2SAT 96
[2018-04-08] MEDS: LISINOPRIL 10 MG TAB PO SCH ×2 (09:00→09:06)
[2018-04-08] MEDS: SODIUM CHLORIDE 0.9% FLUSH 10 ML FLUSH IV FLUSH SCH (09:00)
[2018-04-08] MEDS: PANTOPRAZOLE SOD 40 MG DELAYED RELEASE TAB PO SCH (09:06)
--- NOTE | 2018-04-08 09:29 | PD.WOU.CON ---
Patient Intake Chief Complaint Left foot ulcer Consult Requested by Reason for Consult Eschar on left plantar surface Primary Care Physician No Primary Care Physician Coded Allergies: No Known Allergies (Unverified Allergy, Unknown, 04/04/18) Vital Signs Date Time Temp Pulse Resp B/P (MAP) Pulse Ox O2 Delivery O2 Flow Rate FiO2 04/08/18 04:00 98.9 64 20 138/77 (97) 96 04/08/18 00:00 98.5 65 16 134/70 (91) 96 04/07/18 20:00 97.9 80 16 134/80 (98) 16 04/07/18 16:00 98.4 62 18 134/77 (96) 98 04/07/18 12:00 98.2 71 16 146/77 (100) 98 04/07/18 11:32 95 Past, Family & Social History Past Medical History HEENT: DENIES HX OF: Cataracts, Glaucoma, Recurrent ear infections, Recurrent sinusitis, Other HEENT history Endocrine: DENIES HX OF: Diabetes mellitus, Graves disease, Hyperthyroidism, Hypothyroidism, Other endocrine history Respiratory: DENIES HX OF: Allergies/hay fever, Asthma, COPD, CPAP use, Sleep apnea, Other respiratory history Cardiovascular: DENIES HX OF: Abdominal aortic aneurysm, Angina, Atrial fibrillation, Cardiac arrhythmias, Coronary artery disease, Deep venous thrombosis, Heart failure, Heart valve disease, Hyperlipidemia, Hypertension, Myocardial infarction, Peripheral vascular dz, Other CV history Gastrointestinal: DENIES HX OF: Colitis, GERD, Irritable bowel syndrome, Liver disease, Pancreatitis, Peptic ulcer disease, Other GI history Genitourinary - Male: DENIES HX OF: Benign prost. hyperplasia, Erectile dysfunction, Prostatitis, Testicular problems, Undescended testicle Musculoskeletal: DENIES HX OF: Fibromyalgia, Fractures, Gout, Osteoarthritis, Osteoporosis, Rheumatoid arthritis, Other musculoskeletal hx Cancer/Hematology: DENIES HX OF: Anemia, Bladder Cancer, Blood cancer, Brain cancer, Breast cancer, Colorectal cancer, Endocrine cancer, Eye cancer, GI cancer, cancer, Kidney cancer, Leukemia, Liver cancer, Lung cancer, Lymphoma , Musculoskeletal cancer, Neurologic cancer, Oral cancer, Skin cancer, Stomach cancer, Thyroid cancer, Other cancer/hematology Cancer - Male: DENIES HX OF: Prostate cancer, Testicular cancer Infectious Disease: DENIES HX OF: AIDS, Chickenpox, Hepatitis, HIV, Measles, MRSA, Mumps, Polio, Positive PPD, Rheumatic fever, Rubella, Syphilis, Tuberculosis, Vanc-resistant enterococc, Other inf disease history Integumentary: DENIES HX OF: Acne, Eczema, Psoriasis, Other integumentary hx Neurologic: DENIES HX OF: ADHD, Autism, Dementia, Developmental delay, Headaches, Multiple sclerosis, Parkinson disease, Peripheral neuropathy, Restless leg syndrome, Seizures, Stroke, Transient ischemic attack, Other neurologic history Psychiatric: DENIES HX OF: Anorexia nervosa, Anxiety, Bipolar disorder, Bulimia , Depression, Schizophrenia, Other psychiatric history Genetic/Metabolic: DENIES HX OF: Cystic fibrosis, Down syndrome, Other genetic history, Other metabolic history Events: DENIES HX OF: Anaphylaxis, Gunshot wound, Motor vehicle accident, Other events Disabilities: DENIES HX OF: Hearing deficit, Vision deficit, Hemiparesis, Paraplegia, Quadriplegia, Other disabilities Past Surgical History HEENT: DENIES HX OF: Cataract extraction, Dental surgery, Laryngectomy, Tonsillectomy, Other head surgery, Other eye surgery, Other ear surgery, Other nasal surgery, Other throat surgery Endocrine: DENIES HX OF: Parathyroidectomy, Thyroid surgery, Other endocrine surgery Respiratory: DENIES HX OF: Bronchoscopy, Lobectomy, Other chest surgery Cardiovascular: DENIES HX OF: Angiogram, Angioplasty, CABG surgery, Carotid endarterectomy, Coronary stent, Heart transplant, Pacemaker, Valve replacement, Other cardiac surgery Gastrointestinal: REPORTS HX OF: Hernia repair (Ingulinal hernia repair), DENIES HX OF: Colectomy, total Genitourinary: DENIES HX OF: Bladder surgery, Kidney stone extraction, Nephrectomy, Other surgery Genitourinary - Male: DENIES HX OF: Prostatectomy, TURP, Vasectomy Musculoskeletal: REPORTS HX OF: Other musculoskeletal srg (Left arm surgery) Integumentary: DENIES HX OF: Skin cancer removal, Other integumentary surg Neurologic: DENIES HX OF: Craniotomy, Spinal surgery, Other neurologic surgery Breast: DENIES HX OF: Breast biopsy, Lumpectomy, Mastectomy, bilateral, Mastectomy, left, Mastectomy, right, Other breast surgery Family Medical History FH: COPD (chronic obstructive pulmonary disease) G8 FATHER ( age 62) G8 BROTHER ( 56) Social History Social History: Adopted: No Educational Level: Couple years of college Lives Independently: Yes Marital Status: Service: No Occupation: Unemployed Pets: No Substance Use Substance Use: Marijuana Kathryn/Pentecostal Kathryn Tradition/Pentecostal: Yarsanism Special Kathryn Needs: No Wound Assessment Wound Information - Wound One Wound Location: Left great toe Lab and Radiology Results Radiology Last Impressions Foot X-Ray 04/06/18 0000 Signed Impressions: CONCLUSION: Severe bunion deformity of the great toe No destructive bone lesions or evidence of acute fracture. Midfoot arthropathy. Extremity Arterial Study 04/06/18 0000 Signed Impressions: CONCLUSION: 1. The KORI and TBI are within normal limits. Chest X-Ray 04/04/18 0704 Signed Impressions: CONCLUSION: Negative examination. Assessment/Plan Problem List: (1) Eschar of foot Status: Chronic Plan: KORI and tbi wnl. Eschar now unstable and macerated. Using sterile forceps and scissors , removed surrounding callus and unstable eschar until a nice clean bleeding base achieved. Wound was cultured. Cleaned with normal saline and dressed with puracol ag, maxorb, optifoam and gauze and emily and jabier wrap. Patient is to follow up at the wound care center in 1 week. Appropriate for discharge from a wound care point of view. Care instructions given to patient . he is to keep dressing (2) Foot ulcer, left (3) History of amputation Martha Wade MD Apr 08, 2018 09:29
--- NOTE | 2018-04-08 10:00 | PD.WCN.NOT ---
Wound Consult Description: Patient seen this morning around 09[address] Wade for wound care physician consult for L first metatarsal Communicated with: Doctor Wade Recommendation: Please follow written orders in place from Doctor Wade. Additional Information: Patient seen this morning around [address] Wade for wound care physician consult for L hallux. Patient is sitting recliner for wound assessment. Foot was elevated. Removed PARTH wrap,bordered gauze dressing, and optifoam basic to reveal open wound to L first metatarsal head. Doctor Wade removed macerated callus from periwound with scissors and then cleansed wound with normal saline. Doctor Wade obtained wound culture.Wound bed presents with 100% red non granulation tissue after cleansing. Wound drainage is scant and sanguinous, without odor. Wound measures 2.1cm x 2.2cm x 0.6cm. Periwound is noted with callus that circumferential to wound. Applied puracol AG to wound bed and then covered with Maxorb II cut to fit dressings just in wound bed. Offloaded first metatarsal using optifoam double layered with hole cut out. Secured all dressings with rolled gauze, and parth wrap. Dressings were initialed and dated. Patient tolerated procedure well. Alena Reza [facility] Apr 08, 2018 10:00
[2018-04-08] MEDS ORDERED: POST OP SHOE (13:36)
[2018-04-08] MEDS ORDERED: [UNRECOGNIZED DRUG - OTHER] (13:36)
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
== END 2018-04-08 18:01 | disposition home or self-care (01) | DRG 378 ==
LOC: NEPC 06:08 → NEDA 09:09 → UNDODISOB 09:27 → OBSVTOIN 09:39 → N04A 14:15
PROVIDERS: ADMIT Family Medicine; ATTEND Family Medicine
PROC: 0DB78ZX Excision of Stomach, Pylorus, Via Natural or Artificial Opening Endoscopic, Diagnostic (ICD-10-PCS; 2018-04-05)
PROC: 0DB38ZX Excision of Lower Esophagus, Via Natural or Artificial Opening Endoscopic, Diagnostic (ICD-10-PCS; 2018-04-05)
PROC: 0DB48ZX Excision of Esophagogastric Junction, Via Natural or Artificial Opening Endoscopic, Diagnostic (ICD-10-PCS; 2018-04-05)
PROC: 0DB98ZX Excision of Duodenum, Via Natural or Artificial Opening Endoscopic, Diagnostic (ICD-10-PCS; principal; 2018-04-05 16:15)
DX: K92.1 Melena (principal); N17.9 Acute kidney failure, unspecified; K22.10 Ulcer of esophagus without bleeding; E86.0 Dehydration; K26.9 Duodenal ulcer, unspecified as acute or chronic, without hemorrhage or perforation; I10 Essential (primary) hypertension; K44.9 Diaphragmatic hernia without obstruction or gangrene; K29.70 Gastritis, unspecified, without bleeding
CPT/HCPCS: 71045; 73630; 80048; 80053; 80307; 81001; 82550; 82941; 83690; 84484; 85014; 85018; 85025; 85027; 85610; 85730; 86403; 86850; 86900; 86901; 87070; 87077; 87186; 87205; 88305; 88312; 90686; 93005; 93922; 96361; 96374; C9113; J7030; J7040; L3260; Q2038

== ENCOUNTER 2018-05-10 17:23 | Inpatient (IN) ==
--- NOTE | 2018-05-10 21:25 | ED ---
HPI General Chief complaint: Extremity Problem,Nontraumatic Stated complaint: Swollen Right Foot Time Seen by Provider: 05/10/18 21:22 Source: patient History of Present Illness HPI narrative: The patient is a 57 year old male who presents to the [facility] emergency department with a history of not feeling well for the last 5 days. He reports that for the last 3 days he has been in bed with a fever. He was unsure of the source of the fever. He reports that he did not check his foot until today. He reports that he pulled off his sock and noticed that there was a wound, swelling, redness associated with the right foot. He reports that he has a chronic wound involving the sole of the left foot. He reports that a month ago he was admitted with a GI bleed and was seen by Dr. Cuellar as an inpatient for wound care. He reports that he did not follow-up as an outpatient is recommended at discharge. The patient reports that he took his last Protonix earlier today. He has not followed up with a GI doctor as previously recommended for GI bleed related to peptic ulcers. He denies having a primary care physician. The patient arrives with a fever, temp of 102.9. The patient reports having a diminished appetite and has not moved his bowels in the last week. He denies having any vomiting or diarrhea. He reports that he has had some dysuria and difficulty getting to the bathroom over the last 3 days due to poor mobility with his right foot. On review of systems otherwise, the patient denies having any cough, congestion, neck pain, chest pain, shortness of breath, abdominal pain,or neurologic symptoms. Incidentally, the patient reports that once a week he does snort methamphetamine. Related Data Home Medications Medication Instructions Recorded Confirmed lisinopril 10 mg PO BID 05/11/18 05/11/18 Allergies Allergy/AdvReac Type Severity Reaction Status Date / Time No Known Allergies Allergy Verified 05/11/18 06:14 Review of Systems ROS Unobtainable All other systems reviewed negative except as stated in HPI [facility] Medical History Medical History Amputated toe (Acute) GI bleed (Acute) HTN (hypertension) (Acute) Hx of drug abuse (Acute) Neuropathy (Acute) Ulcer (Acute) Amputated toe of right foot (Acute) Family History Family History Other No family history of cardiac disease Social History Social History Substance History: Active Abuse Second Hand Smoke Exposure: No Smoking Status: Never smoker How Often Do You Have a Drink Containing Alcohol: 2 to 4 times a month Recent Travel in [facility] within the Last 8 Weeks: No Recent Out of Country Travel within the Last 8 Weeks: No Immunization History Tetanus Immunization: Unsure Hx Influenza Vaccine This Season: Yes Exam Const General: cooperative, no acute distress and well developed Nutritional Appearance: well nourished Orientation: alert, awake and oriented x3 HENMT Head: normocephalic and atraumatic Nose: no nasal discharge and no epistaxis Mouth: moist mucous membranes Throat: posterior oropharynx normal Eyes Sclera: normal sclerae Pupils: PERRL Neck Neck: normal visual inspection, trachea midline and no JVD Resp Effort & Inspection: no use of accessory muscles Auscultation: clear to auscultation bilaterally Cardio Rate: regular rate Rhythm: regular rhythm Heart Sounds: no murmurs GI Inspection: non-distended Palpation: soft, no hepatosplenomegaly and nontender Skin General: dry skin (warm) Neuro General: alert, awake and oriented x3 Speech: speech normal Motor: no movement abnormalities noted Extrem General: no clubbing, no cyanosis and edema Right lower extremity: full ROM, edema and foot (The patient has erythema, edema , decreased sensation related to a history of peripheral neuropathy associated with the right foot.) Details: normal capillary refill and other (On the sole of the right foot, base of the third and fourth digit, the patient is noted to have an area of ulceration with active purulent foul-smelling drainage with the wound that measures 5 x 3.5 cm. A wound culture was done.) Left lower extremity: foot Details: normal capillary refill and other (The patient has a chronic appearing ulcer of the sole of the left foot that is 1.5 x 2 cm with pink granulation tissue at the base. No active drainage or surrounding erythema or edema.) Psych Mood: congruent mood Affect: normal affect Judgment: judgment good Course Consultations Consultation #1: The patient's case including history, pertinent physical examination findings, and laboratory studies were discussed with Dr. Rivas. It was agreed that the patient would be admitted to the hospitalist service. Initial Documented Vital Signs Temperature 99 F 05/10/18 18:01 Respiratory Rate 16 05/10/18 18:01 Blood Pressure 116/51 L 05/10/18 18:01 Pulse Oximetry 100 05/10/18 18:01 Last Documented Vital Signs Temperature 100 F H 05/11/18 12:00 Pulse Rate 68 05/11/18 12:00 Respiratory Rate 20 05/11/18 12:00 Blood Pressure 125/63 05/11/18 12:00 Pulse Oximetry 95 05/11/18 05:00 Medical Decision Making MDM Narrative Medical decision making narrative: During the course of the patient's emergency department visit, the patient's history, examination, and differential diagnosis were reviewed with the patient. The patient was placed on a night monitor with oximetry and frequent blood pressure monitoring. The patient had IV access obtained and blood work sent for analysis. A chest x-ray, right foot x-ray, blood cultures 2, lactic acid was sent for analysis. The patient was initially provided Zosyn and vancomycin for broad-spectrum antibiotic coverage for suspected sepsis. Diagnostic workup was started to evaluate for possible sepsis related to a right foot infection, versus osteomyelitis, versus pyelonephritis, versus pneumonia. A white count of 31The patient's laboratory studies were remarkable for with a left shift PT 11.8, PTT 29.7, chemistry was remarkable for a GFR of 56. An x-ray of the patient's foot reveals an abnormal appearance to the tibiotalar articulation and the articulation between the talus and scaphoid with sclerosis and narrowing. There is associated soft tissue swelling. Differential considerations include septic joint and Charcot joint. A chest x-ray reveals no acute cardiopulmonary disease. The patient will be admitted to the hospital for treatment of a foot infection with suspected associated sepsis. The patient's results were discussed with the patient, including the plan of care. I explained that further testing and/ or monitoring is indicated based on the patient's history, examination, and/ or laboratory findings. Therefore, I recommended admission for additional evaluation. The patient expressed understanding and was agreeable with this plan. The patient was admitted to the hospital in guarded condition and sent to a bed under the care of [facility] service. Differential Diagnosis Differential Diagnosis: sepsis related to a right foot infection, versus osteomyelitis, versus pyelonephritis, versus pneumonia Medical Records Medical records reviewed: Yes I reviewed the patient's medical records. Lab Data Lab results reviewed: Yes I reviewed the patient's lab results. Result diagrams: 05/11/18 10:39 05/11/18 06:30 Lab Results 05/10/18 05/10/18 05/10/18 Range/Units 22:50 22:50 22:50 WBC 31.0 H (4.0-11.0) th/mm3 RBC 4.41 L (4.50-5.90) mil/mm3 Hgb 12.7 L (13.0-17.0) gm/dL Hct 38.4 L (39.0-51.0) % MCV 87.1 (80.0-100.0) fL MCH 28.8 (27.0-34.0) pg MCHC 33.1 (32.0-36.0) % RDW 14.3 (11.6-17.2) % Plt Count 428 (150-450) th/mm3 MPV 8.2 (7.0-11.0) fL Prelim Diff (Auto) Manual diff required Neut % (Auto) (16.0-70.0) % Lymph % (Auto) (9.0-44.0) % Hopkins % (Auto) (0.0-8.0) % Eos % (Auto) (0.0-4.0) % Baso % (Auto) (0.0-2.0) % Neut # (Auto) (1.8-7.7) th/mm3 Lymph # (Auto) (1.0-4.8) th/mm3 Hopkins # (Auto) (0.0-0.9) th/mm3 Eos # (Auto) (0.0-0.4) th/mm3 Baso # (Auto) (0.0-0.2) th/mm3 WBC Differential Manual diff final Seg Neuts % (Manual) 97 H (16-70) % Lymphocytes % (Manual) 1 L (9-44) % Monocytes % (Manual) 2 (0-8) % Abs Neuts (Manual) 30.1 H (1.8-7.7) th/mm3 Differential Comment . Platelet Estimate High H (Normal) Platelet Morphology Normal (Normal) RBC Morphology Normal (Normal) PT 11.8 H (9.8-11.6) sec INR 1.2 Ratio APTT 29.7 (24.3-30.1) sec Sodium (136-145) meq/L Potassium (3.5-5.1) meq/L Chloride (98-107) meq/L Carbon Dioxide (21.0-32.0) meq/L Anion Gap (5-15) meq/L BUN (7-18) mg/dL Creatinine (0.60-1.30) mg/dL Estimated GFR (>89) mL/min Random Glucose (74-106) mg/dL Lactic Acid 2.5 H (0.4-2.0) mmol/L Calcium (8.5-10.1) mg/dL Magnesium (1.5-2.5) mg/dL Total Bilirubin (0.2-1.0) mg/dL AST (15-37) U/L ALT (12-78) U/L Alkaline Phosphatase (45-117) U/L Total Creatine Kinase (39-308) U/L Troponin I (0.02-0.05) ng/mL Total Protein (6.4-8.2) g/dL Albumin (3.4-5.0) g/dL Lipase (73-393) U/L Urine Color (Yellw/Straw) Urine Clarity (Clear) Urine pH (5.0-8.5) Ur Specific Brainard (1.002-1.035) Urine Protein (Neg-Trace) mg/dL Urine Glucose (UA) (Negative) mg/dL Urine Ketones (Negative) mg/dL Urine Occult Blood (Negative) Urine Nitrate (Negative) Urine Bilirubin (Negative) Urine Urobilinogen (Less than 2) mg/dL Ur Leukocyte Esterase (Negative) Urine RBC (0-3) /hpf Urine WBC (0-5) /hpf Ur Squamous Epith Cells (0-5) /hpf Urine Bacteria (None) /hpf Hyaline Casts (0-3) /lpf Granular Casts (None) /lpf Urine Mucus (Occasional) /lpf Micro UA Comment Urine Culture Comments 05/11/18 05/11/18 05/11/18 Range/Units 00:18 03:05 03:40 WBC (4.0-11.0) th/mm3 RBC (4.50-5.90) mil/mm3 Hgb (13.0-17.0) gm/dL Hct (39.0-51.0) % MCV (80.0-100.0) fL MCH (27.0-34.0) pg MCHC (32.0-36.0) % RDW (11.6-17.2) % Plt Count (150-450) th/mm3 MPV (7.0-11.0) fL Prelim Diff (Auto) Neut % (Auto) (16.0-70.0) % Lymph % (Auto) (9.0-44.0) % Hopkins % (Auto) (0.0-8.0) % Eos % (Auto) (0.0-4.0) % Baso % (Auto) (0.0-2.0) % Neut # (Auto) (1.8-7.7) th/mm3 Lymph # (Auto) (1.0-4.8) th/mm3 Hopkins # (Auto) (0.0-0.9) th/mm3 Eos # (Auto) (0.0-0.4) th/mm3 Baso # (Auto) (0.0-0.2) th/mm3 WBC Differential Seg Neuts % (Manual) (16-70) % Lymphocytes % (Manual) (9-44) % Monocytes % (Manual) (0-8) % Abs Neuts (Manual) (1.8-7.7) th/mm3 Differential Comment Platelet Estimate (Normal) Platelet Morphology (Normal) RBC Morphology (Normal) PT (9.8-11.6) sec INR Ratio APTT (24.3-30.1) sec Sodium 137 (136-145) meq/L Potassium 3.2 L (3.5-5.1) meq/L Chloride 102 (98-107) meq/L Carbon Dioxide 23.5 (21.0-32.0) meq/L Anion Gap 12 (5-15) meq/L BUN 20 H (7-18) mg/dL Creatinine 1.31 H (0.60-1.30) mg/dL Estimated GFR 56 L (>89) mL/min Random Glucose 123 H (74-106) mg/dL Lactic Acid 1.0 (0.4-2.0) mmol/L Calcium 7.7 L (8.5-10.1) mg/dL Magnesium 2.0 (1.5-2.5) mg/dL Total Bilirubin 0.7 (0.2-1.0) mg/dL AST 17 (15-37) U/L ALT 16 (12-78) U/L Alkaline Phosphatase 139 H (45-117) U/L Total Creatine Kinase 18 L (39-308) U/L Troponin I Less than 0.02 L (0.02-0.05) ng/mL Total Protein 7.2 (6.4-8.2) g/dL Albumin 2.1 L (3.4-5.0) g/dL Lipase 73 (73-393) U/L Urine Color Sulma (Yellw/Straw) Urine Clarity Hazy H (Clear) Urine pH 5.0 (5.0-8.5) Ur Specific Brainard 1.035 (1.002-1.035) Urine Protein 100 H (Neg-Trace) mg/dL Urine Glucose (UA) Negative (Negative) mg/dL Urine Ketones Negative (Negative) mg/dL Urine Occult Blood Negative (Negative) Urine Nitrate Negative (Negative) Urine Bilirubin Negative (Negative) Urine Urobilinogen 4 or greater (Less than 2) mg/dL Ur Leukocyte Esterase Negative (Negative) Urine RBC 7 H (0-3) /hpf Urine WBC 10 H (0-5) /hpf Ur Squamous Epith Cells <1 (0-5) /hpf Urine Bacteria Rare H (None) /hpf Hyaline Casts 61 (0-3) /lpf Granular Casts 17 (None) /lpf Urine Mucus Few H (Occasional) /lpf Micro UA Comment Culture indicated Urine Culture Comments Culture indicated 05/11/18 05/11/18 Range/Units 06:30 10:39 WBC 21.3 H (4.0-11.0) th/mm3 RBC 3.71 L (4.50-5.90) mil/mm3 Hgb 10.6 L D (13.0-17.0) gm/dL Hct 32.2 L (39.0-51.0) % MCV 86.8 (80.0-100.0) fL MCH 28.4 (27.0-34.0) pg MCHC 32.7 (32.0-36.0) % RDW 14.1 (11.6-17.2) % Plt Count 369 (150-450) th/mm3 MPV 7.9 (7.0-11.0) fL Prelim Diff (Auto) Neut % (Auto) 91.3 H (16.0-70.0) % Lymph % (Auto) 4.2 L (9.0-44.0) % Hopkins % (Auto) 3.6 (0.0-8.0) % Eos % (Auto) 0.3 (0.0-4.0) % Baso % (Auto) 0.6 (0.0-2.0) % Neut # (Auto) 19.4 H (1.8-7.7) th/mm3 Lymph # (Auto) 0.9 L (1.0-4.8) th/mm3 Hopkins # (Auto) 0.8 (0.0-0.9) th/mm3 Eos # (Auto) 0.1 (0.0-0.4) th/mm3 Baso # (Auto) 0.1 (0.0-0.2) th/mm3 WBC Differential . Seg Neuts % (Manual) (16-70) % Lymphocytes % (Manual) (9-44) % Monocytes % (Manual) (0-8) % Abs Neuts (Manual) (1.8-7.7) th/mm3 Differential Comment Auto diff final Platelet Estimate (Normal) Platelet Morphology (Normal) RBC Morphology (Normal) PT (9.8-11.6) sec INR Ratio APTT (24.3-30.1) sec Sodium 137 (136-145) meq/L Potassium 3.6 (3.5-5.1) meq/L Chloride 99 (98-107) meq/L Carbon Dioxide 24.9 (21.0-32.0) meq/L Anion Gap 13 (5-15) meq/L BUN 17 (7-18) mg/dL Creatinine 1.23 (0.60-1.30) mg/dL Estimated GFR 60 L (>89) mL/min Random Glucose 90 (74-106) mg/dL Lactic Acid (0.4-2.0) mmol/L Calcium 8.6 D (8.5-10.1) mg/dL Magnesium (1.5-2.5) mg/dL Total Bilirubin (0.2-1.0) mg/dL AST (15-37) U/L ALT (12-78) U/L Alkaline Phosphatase (45-117) U/L Total Creatine Kinase (39-308) U/L Troponin I (0.02-0.05) ng/mL Total Protein (6.4-8.2) g/dL Albumin (3.4-5.0) g/dL Lipase (73-393) U/L Urine Color (Yellw/Straw) Urine Clarity (Clear) Urine pH (5.0-8.5) Ur Specific Brainard (1.002-1.035) Urine Protein (Neg-Trace) mg/dL Urine Glucose (UA) (Negative) mg/dL Urine Ketones (Negative) mg/dL Urine Occult Blood (Negative) Urine Nitrate (Negative) Urine Bilirubin (Negative) Urine Urobilinogen (Less than 2) mg/dL Ur Leukocyte Esterase (Negative) Urine RBC (0-3) /hpf Urine WBC (0-5) /hpf Ur Squamous Epith Cells (0-5) /hpf Urine Bacteria (None) /hpf Hyaline Casts (0-3) /lpf Granular Casts (None) /lpf Urine Mucus (Occasional) /lpf Micro UA Comment Urine Culture Comments Imaging Data Radiologist's impression: Chest X-Ray 05/10/18 21:36 CONCLUSION: The lungs are clear. Foot X-Ray 05/10/18 21:36 CONCLUSION: Abnormal appearance to the tibiotalar articulation and the articulation between the talus and scaphoid with sclerosis and narrowing. There is associated soft tissue swelling. Differential considerations include septic joint and Charcot joint. Foot MRI 05/11/18 00:00 CONCLUSION: 1. Significant degenerative change within multiple joints with subarticular cystic formation and marrow edema as above. 2. Extensive degenerative edema involving the patient's foot diffusely with focal areas of somewhat limited tracking within the subcutaneous tissues particularly dorsally at the level of the distal third and fourth metatarsals, however no definite abscess is identified. 3. Nonspecific edema of the third distal metatarsal bone and calcaneus. ECG Data Attestation: I personally reviewed and interpreted this ECG as follows: Interpretation: The patient had an EKG done on arrival that shows a sinus rhythm heart rate of [address] segment elevation. T waves are inverted in aVL, V1. Discharge Plan Discharge Disposition Patient Disposition: 30 Still Patient Discharge Details Diagnosis: Infection of right foot, Sepsis Physicians Team ED Provider: Vanessa Hernandez Primary Care Provider: Primary Care Briseida,Jojo Attending Provider: Gael Mann Other Providers: Chaitanya Paulino Discharge Interventions Interventions: ED Discharge Assessment Last Done: 05/11/18 13:03 Vital Signs Last Done: 05/11/18 05:00 Status ED Status: Left Department Discharge Information Discharge Date/Time: 05/11/18 13:08
[2018-05-10] MEDS ORDERED: Sod Chloride 0.9% Inj 1,000 ML IV.SIG ONE (21:36)
[2018-05-10] MEDS ORDERED: Vancomycin Inj 1 GM/200 ML PIGGYBACK IV.SIG ONE (21:36)
[2018-05-10] MEDS ORDERED: Acetaminophen 325 MG Tablet PO ONE (21:36)
[2018-05-10] MEDS ORDERED: Piperacil/Tazo 3.375 GM Premix 50 ML IV.SIG ONE (21:36)
[2018-05-10] MEDS ORDERED: Vancomycin Inj 1,000 MG in Sodium Chlor 0.9% Inj 250 ML IV.SIG ONE (21:45)
--- NOTE | 2018-05-10 22:58 | XR ---
EXAM DATE: 05/10/2018 10:40 PM EDT AGE/SEX: 57 years / Male INDICATIONS: . Fever. CLINICAL DATA: This is the patient's initial encounter. Patient reports that signs and symptoms have been present for 1 day and indicates a pain score of 0/10. MEDICAL/SURGICAL HISTORY: . Methamphetamine user. Neuropathy. . Inguinal hernia repair COMPARISON: [facility] [place], 04/[place]. . FINDINGS: A single AP view of the chest demonstrates the lungs to be symmetrically aerated without evidence of mass, infiltrate or effusion. The cardiomediastinal contours are unremarkable. Osseous structures a re intact. CONCLUSION: The lungs are clear. Electronically signed by: Yasir Hammond MD 05/10/2018 10:57 PM EDT
--- NOTE | 2018-05-10 23:01 | XR ---
EXAM DATE: 05/10/2018 10:42 PM EDT AGE/SEX: 57 years / Male INDICATIONS: Inflammation. CLINICAL DATA: This is the patient's initial encounter. Patient reports that signs and symptoms have been present for 1 day and indicates a pain score of 0/10. MEDICAL/SURGICAL HISTORY: . Methamphetamine user. Neuropathy. Inguinal hernia repair. COMPARISON: [facility] [place] ([id number][place] 08/03/2016. . FINDINGS: 2 view examination demonstrates diffuse soft tissue swelling about the ankle. Narrowing of the ankle mortise and narrowing of the tarsometatarsal row with sclerosis. No radiopaque foreign bodies. Absenc e of the second digit phalanges. Punctate metallic density in the distal second digit soft tissues. CONCLUSION: Abnormal appearance to the tibiotalar articulation and the articulation between the talus and scaphoi d with sclerosis and narrowing. There is associated soft tissue swelling. Differential considerations include septic joint and Charcot joint. Electronically signed by: Yasir Hammond MD 05/10/2018 11:00 PM EDT
[2018-05-10 23:12] LABS: Hematocrit 38.4 % (39.0-51.0); Hemoglobin 12.7 gm/dL (13.0-17.0); Mean Corpuscular HGB Conc 33.1 % (32.0-36.0); Mean Corpuscular Hemoglobin 28.8 pg (27.0-34.0); Mean Corpuscular Volume 87.1 fL (80.0-100.0); Mean Platelet Volume 8.2 fL (7.0-11.0); Platelet Count 428 th/mm3 (150-450); Red Blood Count 4.41 mil/mm3 (4.50-5.90); Red Cell Distribution Width 14.3 % (11.6-17.2)
[2018-05-10 23:23] LABS: Activated Partial Thrombo Time 29.7 sec (24.3-30.1); INR 1.2 Ratio; Prothrombin Time 11.8 sec (9.8-11.6)
[2018-05-10 23:54] LABS: Lymphocytes 1 % (9-44); Monocytes 2 % (0-8)
[2018-05-10 23:55] LABS: Platelet Morphology Normal (Normal); RBC Morphology Normal (Normal)
[2018-05-11 00:45] LABS: Albumin 2.1 g/dL (3.4-5.0); Anion Gap 12 meq/L (5-15); Aspartate Aminotransferase 17 U/L (15-37); Calcium 7.7 mg/dL (8.5-10.1); Carbon Dioxide 23.5 meq/L (21.0-32.0); Chloride 102 meq/L (98-107); Glomerular Filtration Rate 56 mL/min (>89); Glucose,Random 123 mg/dL (74-106); Lipase 73 U/L (73-393); Potassium 3.2 meq/L (3.5-5.1); Sodium 137 meq/L (136-145)
[2018-05-11 00:53] LABS: Alanine Aminotransferase 16 U/L (12-78); Alkaline Phosphatase 139 U/L (45-117); Blood Urea Nitrogen 20 mg/dL (7-18); Total Protein 7.2 g/dL (6.4-8.2)
[2018-05-11 01:01] LABS: Creatine Kinase 18 U/L (39-308)
[2018-05-11] MEDS ORDERED: Acetaminophen 325 MG Tablet PO PRN (03:49)
[2018-05-11] MEDS ORDERED: Bisacodyl 10 MG Supp RECTAL PRN (03:49)
[2018-05-11] MEDS ORDERED: Vancomycin Consult Pharmacy 1 EACH OTHER SCH (04:00)
--- NOTE | 2018-05-11 04:05 | P.HP ---
History of Present Illness Service: [facility] Primary Care Physician: No Primary Care Physician Chief Complaint: fever, r foot infection History of Present Illness: 57-year-old male with a past medical history significant for hypertension and neuropathy presents to the emergency department for the evaluation of right foot pain and 5 days of fever/chills. The patient reports that he has pain with ambulation and initially noticed that his foot was swollen, red and draining purulent material when he took off his sock to get in the shower today. He denies chest pain or shortness of breath. No abdominal pain. No nausea/vomiting/diarrhea. No lateralizing signs/symptoms. Inpatient Certification: I certify that the inpatient services were ordered in accordance with Medicare regulations governing the order. This includes certification that hospital inpatient services are reasonable and necessary and in the case of services not specified as inpatient-only under 42 CFR 419.22(n), that they are appropriately provided as inpatient services in accordance to with the 2-midnight benchmark under 43 CFR 412.3(e) Estimated Total Length of Stay (Days): 3 Plans for Post Hospital Care: Not yet determined Review of Systems All other systems reviewed negative except as stated in HPI PMFSH - History History Provided By: Patient - Medical History Medical History: Medical History (Last Updated 05/11/18 @ 03:57 by Alfreda Rivas MD) Amputated toe GI bleed HTN (hypertension) Hx of drug abuse Neuropathy Ulcer Amputated toe of right foot - Family History Family History: Family History (Last Updated 05/11/18 @ 03:58 by Alfreda Rivas MD) Other No family history of cardiac disease - Tobacco History Second Hand Smoke Exposure: No Smoking Status: Never smoker - Alcohol History How Often Do You Have a Drink Containing Alcohol: 2 to 4 times a month - Substance Use History Substance History: Active Abuse - Substance Use Type Methamphetamine Status: Active Route Used: Inhalation Reason for Use: Socialization Crack/Cocaine Status: Sustained Remission Route Used: Inhalation Reason for Use: Socialization Comment: Pt states former user - Travel History Recent Travel in the [place] Within the Last 8 Weeks: No Recent Travel Out of the Country Within the Last 8 Weeks: No - Immunization History Tetanus Immunization: Unsure Hx Influenza Vaccine This Season: Yes Medications and Allergies Active Medications: Active Medications Acetaminophen (Tylenol) 650 mg PO Q4H PRN PRN Reason: Temp > 100.4 Allergies Allergy/AdvReac Type Severity Reaction Status Date / Time No Known Allergies Allergy Unknown Uncoded 04/04/18 09:45 Exam Vital signs: Vital Signs 05/10/18 18:01 05/10/18 21:27 05/10/18 23:00 Temperature 99 F 102.9 F H 102.5 F H Pulse Rate 83 88 Respiratory Rate 16 16 18 Blood Pressure 116/51 L 131/72 115/57 L Pulse Oximetry 100 98 97 05/10/18 23:56 05/11/18 03:00 Temperature 102.7 F H 100.4 F H Pulse Rate 85 78 Respiratory Rate 18 16 Blood Pressure 115/58 L 114/65 Pulse Oximetry 99 98 Intake & Output 05/10/18 05/10/18 05/11/18 06:59 18:59 06:59 Intake Total 1050 / 1050 Balance 1050 / 1050 Weight 111.13 kg Intake: IV 1050 / 1050 Zosyn 3.375 GM Premix 50 ML @ 50 / 50 100 mls/hr IV.SIG ONCE ONE Rx#: [id number] NS Inj 1,000 ML @ Wide Open IV. 1000 / 1000 SIG BOLUS ONE Rx#:[id number] Narrative: Gen.: No acute distress Head: Normocephalic. Atraumatic. EENT: Pupils equal round and reactive to light. Nose without drainage. Airway intact. Throat without injection. Cardiovascular: Regular rate and rhythm. No murmurs, rubs or gallops. Respiratory: Lungs clear to auscultation bilaterally. No wheezes or rhonchi. Abdomen: Soft, nontender, nondistended. No peritoneal signs. Musculoskeletal: No gross deformities. No edema. Skin: Large ulcerated lesion between second and third great toes on the plantar surface of the foot draining purulent material with surrounding erythema and edema. Neuro: Sensory and motor grossly intact. Cranial nerves II through XII grossly intact. Psych: Appropriate mood and affect Results - Labs CBC & Chem 7: 05/10/18 22:50 05/11/18 00:18 Labs: Laboratory Results - last 24 hr 05/10/18 05/10/18 05/10/18 22:50 22:50 22:50 WBC 31.0 H RBC 4.41 L Hgb 12.7 L Hct 38.4 L MCV 87.1 MCH 28.8 MCHC 33.1 RDW 14.3 Plt Count 428 MPV 8.2 Prelim Diff (Auto) Manual diff required WBC Differential Manual diff final Seg Neuts % (Manual) 97 H Lymphocytes % (Manual) 1 L Monocytes % (Manual) 2 Abs Neuts (Manual) 30.1 H Differential Comment . Platelet Estimate High H Platelet Morphology Normal RBC Morphology Normal PT 11.8 H INR 1.2 APTT 29.7 Sodium Potassium Chloride Carbon Dioxide Anion Gap BUN Creatinine Estimated GFR Random Glucose Lactic Acid 2.5 H Calcium Magnesium Total Bilirubin AST ALT Alkaline Phosphatase Total Creatine Kinase Troponin I Total Protein Albumin Lipase 05/11/18 05/11/18 00:18 03:05 WBC RBC Hgb Hct MCV MCH MCHC RDW Plt Count MPV Prelim Diff (Auto) WBC Differential Seg Neuts % (Manual) Lymphocytes % (Manual) Monocytes % (Manual) Abs Neuts (Manual) Differential Comment Platelet Estimate Platelet Morphology RBC Morphology PT INR APTT Sodium 137 Potassium 3.2 L Chloride 102 Carbon Dioxide 23.5 Anion Gap 12 BUN 20 H Creatinine 1.31 H Estimated GFR 56 L Random Glucose 123 H Lactic Acid 1.0 Calcium 7.7 L Magnesium 2.0 Total Bilirubin 0.7 AST 17 ALT 16 Alkaline Phosphatase 139 H Total Creatine Kinase 18 L Troponin I Less than 0.02 L Total Protein 7.2 Albumin 2.1 L Lipase 73 - Imaging Impressions Chest X-Ray 05/10/18 21:36 CONCLUSION: The lungs are clear. Foot X-Ray 05/10/18 21:36 CONCLUSION: Abnormal appearance to the tibiotalar articulation and the articulation between the talus and scaphoid with sclerosis and narrowing. There is associated soft tissue swelling. Differential considerations include septic joint and Charcot joint. Caprini VTE Risk Assessment Caprini VTE Risk Assessment: No/Low Risk (score <= 1) Caprini Risk Assessment Model: Point Value = 1 Point Value = 2 Point Value = 3 Point Value = 5 Age 41-60 Minor surgery BMI > 25 kg/m2 Swollen legs Varicose veins or History of unexplained or recurrent spontaneous Oral contraceptives or hormone replacement Sepsis (< 1 month) Serious lung disease, including pneumonia (< 1 month) Abnormal pulmonary function Acute myocardial infarction Congestive heart failure (< 1 month) History of inflammatory bowel disease Medical patient at bed rest Age 61-74 Arthroscopic surgery Major open surgery (> 45 min) Laparoscopic surgery (> 45 min) Malignancy Confined to bed (> 72 hours) Immobilizing plaster cast Central venous access Age >= 75 History of VTE Family history of VTE Factor V Leiden Prothrombin [id number] Lupus anticoagulant Anticardiolipin antibodies Elevated serum homocysteine Heparin-induced thrombocytopenia Other congenital or acquired thrombophilia Stroke (< 1 month) Elective arthroplasty Hip, pelvis, or leg fracture Acute spinal cord injury (< 1 month) Prophylaxis Regimen: Total Risk Factor Score Risk Level Prophylaxis Regimen 0-1 Low Early ambulation 2 Moderate Order ONE of the following: *Sequential Compression Device (SCD) *Heparin 5000 units SQ BID 3-4 Higher Order ONE of the following medications: *Heparin 5000 units SQ TID *Enoxaparin/Lovenox 40 mg SQ daily (WT < 150 kg, CrCl > 30 mL/min) *Enoxaparin/Lovenox 30 mg SQ daily (WT < 150 kg, CrCl > 10-29 mL/min) *Enoxaparin/Lovenox 30 mg SQ BID (WT < 150 kg, CrCl > 30 mL/min) AND/OR *Sequential Compression Device (SCD) 5 or more Highest Order ONE of the following medications: *Heparin 5000 units SQ TID (Preferred with Epidurals) *Enoxaparin/Lovenox 40 mg SQ daily (WT < 150 kg, CrCl > 30 mL/min) *Enoxaparin/Lovenox 30 mg SQ daily (WT < 150 kg, CrCl > 10-29 mL/min) *Enoxaparin/Lovenox 30 mg SQ BID (WT < 150 kg, CrCl > 30 mL/min) AND *Sequential Compression Device (SCD) Assessment and Plan - Plan Assessment/plan: 1. Right foot infection/? Osteomyelitis/sepsis Patient with leukocytosis and fever Foot x-ray of the tibiotalar articulation in the articulation between the talus and the scaphoid with associated soft tissue swelling -concern for septic joint versus Charcot joint MRI pending Podiatry consulted, appreciate recommendations Blood/wound cultures pending Vancomycin/Zosyn Wound care consulted 2. Hypertension Continue home medications once reconciled Clonidine as needed 3. Hypokalemia Status post p.o. repletion Monitor BMP FEN N.p.o. Electrolytes: As above NS at 125 cc/hour
[2018-05-11 04:21] LABS: Bacteria,Urine Rare /hpf; Clarity,Urine Hazy (Clear); Color,Urine Amber (Yellw/Straw); Glucose,Urine (UA) Negative (Negative); Hyaline Casts,Urine 61 /lpf (0-3); Leukocyte Esterase,Urine Negative (Negative); Mucus,Urine Few /lpf (Occasional); Nitrite,Urine Negative (Negative); Specific Gravity,Urine 1.035 (1.002-1.035); Squamous Epithelial Cell,Urine <1 /hpf (0-5); Urobilinogen,Urine 4 or Greater mg/dL (Less than 2)
[2018-05-11 04:23] LABS: Bilirubin,Urine Negative (Negative)
[2018-05-11] MEDS: Piperacil/Tazo 3.375 GM Premix 50 ML IV.SIG SCH ×4 (05:03→23:14)
[2018-05-11] MEDS: Sod Chloride 0.9% Inj 1,000 ML IV.CONT SCH ×3 (05:03→23:13)
--- NOTE | 2018-05-11 07:50 | MB ---
cc: Chaitanya Lopez DPM DATE: 05/11/2018 REASON FOR CONSULTATION: Right foot infection, left foot ulcer. HISTORY OF PRESENT ILLNESS: This is a 57-year-old male with a history of neuropathy. He says he developed a fever over the last few days. He sat in a room and just kept his socks on. He took his socks off and he noticed significant redness, swelling and pain. The patient denies any obvious incident or injury. He is unsure why he has peripheral neuropathy. He only takes 1 medication, lisinopril. PAST MEDICAL HISTORY: History of drug abuse, hypertension, GI bleed, history of amputated toe ulcer, amputated toe right foot. SOCIAL HISTORY: Denies smoking. Occasional alcohol. Active substance abuse, methamphetamine inhalation. History of cocaine. ALLERGIES: NO KNOWN DRUG ALLERGIES. MEDICATIONS: Inpatient, he is receiving Zosyn and vancomycin. Please see complete medication list in chart. PHYSICAL EXAMINATION: VITAL SIGNS: Temperature 100.6, pulse rate 85, respiratory rate 16, blood pressure 124/58, he is sating 95% on room air. GENERAL: This is an alert and oriented obese male exhibiting nonlabored respirations. EXTREMITIES: Bilateral lower extremities are examined. Right lower extremity, there is noted to be severe swelling, edema and a draining purulence borderline necrotic plantar forefoot. There is significant edema that extends up to the patient's ankle and pretibia. The majority of the redness is at the forefoot. Upon palpating the area, there is no obvious gas within the soft tissue. Emphysema is not felt. There is no significant malodor; however, mild malodor is noted. There is a purple discoloration of the digit. There is good capillary fill time to the rest of the digit. There is a previously amputated lesser digit. Ankle is without crepitus or instability. Sensation is significantly decreased to light touch, but intact to deep pressure. Left lower extremity, mild hallux valgus. Superficial dry eschar, partial thickness ulcer in the plantar aspect of the medial first MPJ approximately 1 x 2 cm. There is no erythema, redness or drainage. Pedal pulses are slightly decreased; however, appear to be intact. Sensation decreased to light touch. LABORATORY DATA: White blood cell 31. Hemoglobin and hematocrit 12 and 38, platelet count 428. Chem-7: Sodium 137, potassium 3.2, chloride 102, CO2 23.5, BUN 20, creatinine 1.3, random glucose is 123, lactic acid is 2.5. Coagulation profile: PT 11.8, INR 1.2. IMAGING: Foot x-ray consistent with an abnormal healing tibiotalar articulation, sclerosis, joint space narrowing, significant soft tissue inflammation noted. MRI ordered and pending. MICROBIOLOGY: Blood culture and wound culture ordered and pending. ASSESSMENT AND PLAN: Right foot and ankle infection likely a forefoot abscess, left foot partial thickness ulcer uncomplicated. Plan is OR today. MRI is pending. There is possibly a need for incision and drainage of the foot and the ankle. There is a high likelihood of multiple surgeries needed to control this infection and it appears that the second toe is starting to declare itself due to the severity of the infection. Risks and benefits explained to the patient regarding surgery, possible need for more surgery at a later date, possible amputation of the digit and partial forefoot. The patient wished for limb salvage efforts. Surgery is scheduled for later today. Thank you for this consultation. Chaitanya Lopez DPM DBM/DL , 07:26 AM , 07:48 AM
[2018-05-11 07:58] LABS: Calcium 8.6 mg/dL (8.5-10.1); Carbon Dioxide 24.9 meq/L (21.0-32.0); Potassium 3.6 meq/L (3.5-5.1)
[2018-05-11] MEDS: Vancomycin Inj 1,500 MG in Sodium Chlor 0.9% Inj 500 ML IV.SIG SCH ×2 (09:58→23:14)
[2018-05-11] MEDS: Senna/Docusate Sodium 8.6/50 MG Tablet PO SCH ×2 (09:58→23:12)
[2018-05-11] MEDS ORDERED: Vancomycin Inj 1 GM/200 ML PIGGYBACK IV.SIG SCH (10:00)
[2018-05-11 11:04] LABS: Baso # (Auto) 0.1 th/mm3 (0.0-0.2); Baso % (Auto) 0.6 % (0.0-2.0); Eos # (Auto) 0.1 th/mm3 (0.0-0.4); Eos % (Auto) 0.3 % (0.0-4.0); Hematocrit 32.2 % (39.0-51.0); Hemoglobin 10.6 gm/dL (13.0-17.0); Lymph # (Auto) 0.9 th/mm3 (1.0-4.8); Lymph % (Auto) 4.2 % (9.0-44.0); Mean Corpuscular HGB Conc 32.7 % (32.0-36.0); Mean Corpuscular Hemoglobin 28.4 pg (27.0-34.0); Mean Corpuscular Volume 86.8 fL (80.0-100.0); Mean Platelet Volume 7.9 fL (7.0-11.0); Mono # (Auto) 0.8 th/mm3 (0.0-0.9); Mono % (Auto) 3.6 % (0.0-8.0); Neut # (Auto) 19.4 th/mm3 (1.8-7.7); Neut % (Auto) 91.3 % (16.0-70.0); Platelet Count 369 th/mm3 (150-450); Red Blood Count 3.71 mil/mm3 (4.50-5.90); Red Cell Distribution Width 14.1 % (11.6-17.2); White Blood Count 21.3 th/mm3 (4.0-11.0)
--- NOTE | 2018-05-11 11:12 | P.PNWCN ---
Wound Care Nurse Consult Description: Consult for wound management of right foot per Rob Communicated with: KAREY Salvador Recommendation: Follow Dr Lopez's post op orders Additional information: Spoke with RN regarding patient schedule for surgery today @1400. Will defer to Podiatry for dressing changes post operatively.
[2018-05-11] MEDS ORDERED: Lidocaine PF 1% Inj 5 ML Syringe INFILTRATN ONE (12:00)
[2018-05-11] MEDS ORDERED: Gadobenate Dimeglumine PF Inj 20 ML VIAL (for RAD MRI) IVCONTRAST ONE (14:08)
[2018-05-11] MEDS ORDERED: Sodium Chlor 0.9% Inj 500 ML IV.SIG SCH (15:00)
[2018-05-11] MEDS ORDERED: Chlorhexidine Gluconate 2% 1 Pack (2 Cloths) TOPICAL SCH (15:00)
[2018-05-11] MEDS ORDERED: Metoprolol Tartrate 25 MG Tablet PO SCH (15:00)
--- NOTE | 2018-05-11 15:05 | MR ---
EXAM DATE: 05/11/2018 2:16 PM EDT AGE/SEX: 57 years / Male INDICATIONS: . Ulcer at base of right 3-4 digit with drainage. CLINICAL DATA: This is the patient's subsequent encounter. Patient reports that signs and symptoms h ave been present for 1 day and indicates a pain score of 0/10. MEDICAL/SURGICAL HISTORY: Hypertension. neuropathy . Right second toe amputation COMPARISON: No prior exams available for comparison. TECHNIQUE: Multiplanar, multisequence MRI examination was performed without contrast and after th e intravenous administration of 22 ml Multihance (gadobenate) single exam dose. FINDINGS: There is abnormal marrow edema involving the calcaneus and parts of the talus near the talocalcaneal junction in addition to subarticular cystic formation. The talocalcaneal findings are consistent with significant degenerative arthritis and similar findings are present involving the talonavicular join t with edema of the navicular bone and cystic changes most slightly chronic. The calcaneal edema in t he midportion is however nonspecific and could potentially be traumatic. There is extensive subcutane ous edema diffusely. There are also degenerative changes within multiple tarsal joints, tarsometatars al joints and first metatarsophalangeal joint with subarticular cystic formation chronic in nature. T here is evidence for amputation of the second digit at the level of the metatarsophalangeal joints. T here is also nondescript edema involving the third distal metatarsal bone near the metatarsophalangea l junction. Is no evidence for abscess formation. CONCLUSION: 1. Significant degenerative change within multiple joints with subarticular cystic formation and mar row edema as above. 2. Extensive degenerative edema involving the patient's foot diffusely with focal areas of somewhat limited tracking within the subcutaneous tissues particularly dorsally at the level of the distal thi rd and fourth metatarsals, however no definite abscess is identified. 3. Nonspecific edema of the third distal metatarsal bone and calcaneus. Electronically signed by: Latia Law MD 05/11/2018 3:04 PM EDT
[2018-05-11] MEDS ORDERED: Bupivacaine PF 0.5% Inj 30 ML Vial ONE (17:32)
[2018-05-11] MEDS ORDERED: fentaNYL Citrate Inj 250 MCG/5 ML Ampul ONE (17:47)
--- NOTE | 2018-05-11 18:47 | P.BOP ---
- Preoperative Diagnosis (1) Abscess of right foot - Postoperative Diagnosis (1) Abscess of right foot Date of procedure: 05/11/18 Procedure: Incision drainage debridement right foot Anesthesia: GETA Surgeon: Chaitanya Paulino DPM Estimated blood loss (mL): 30 (mL) Tourniquet time (min): 0 Pathology: other (right foot deep culture) Condition: stable Disposition: PACU
[2018-05-11] MEDS ORDERED: *morphine SULFATE 4 MG/ML PERIprocedure ONLY ONE (19:01)
--- NOTE | 2018-05-11 19:09 | MP ---
cc: Chaitanya Lopez DPM, Dennis B DPM DATE OF OPERATION: 05/11/2018 PREOPERATIVE DIAGNOSIS: Right foot abscess, cellulitis. POSTOPERATIVE DIAGNOSIS: Right foot abscess, cellulitis. PROCEDURE PERFORMED: Incision and drainage deep debridement, dorsal and plantar surface of the foot. IMPLANTABLES: 1/4 inch iodoform packing. ANESTHESIA: General. No local. ESTIMATED BLOOD LOSS: 30 mL PATHOLOGY: None sent. However, deep wound culture sent for microbial analysis. CONDITION: Stable. DISPOSITION: Returned to floor; likely will need multiple debridements, likely need for third metatarsal resection, possible second metatarsal resection with second digit amputation. JUSTIFICATION FOR PROCEDURE: A 57-year-old male with worsening right foot. He has profound neuropathy. MRI per my read showed excessive fluid. There was no mention of obvious abscess; however, this proved otherwise once the surgery took place. PROCEDURE IN DETAIL: Under mild sedation, the patient was brought into the operating room, placed on the operating table in supine position. Following the induction of general anesthesia, right lower extremity was scrubbed, prepped and draped in the usual aseptic fashion. The foot was elevated and examined. Severe edema, ecchymosis of the dorsum of the foot and plantar foot. There was an open draining wound at the plantar aspect of the second digit area. There was noted to be a subluxation of the second MPJ. There is necrosis, purulence at the plantar foot. This was debrided to viable bleeding tissue. There was noted to be copious amounts of purulent material in the interspaces of the first, second and third. This appeared to stop at the plantar aspect of the foot. An incision was made over the dorsal aspect of the foot of the second digit. Sharp and blunt dissection was carried down along the extensor tendons. There was noted to be significant purulence. This was debrided, pulse lavaged, packed open, bandage applied. Capillary fill time remained intact to the digits. The patient was transferred from OR to PACU with all vital signs stable. We will continue to monitor the wound. Likely will need further debridement, possible wound VAC or delayed closure within the next 3-4 days. Continue IV antibiotics. AJITH Moore/ , 06:47 PM , 07:08 PM
--- NOTE | 2018-05-11 20:47 | ECG ---
Date Performed: 05/11/2018 Time Performed: 00:19:02 PTAGE: 57 years EKG: Sinus rhythm INFERIOR MYOCARDIAL INFARCTION ANTEROLATERAL MYOCARDIAL INFARCTION ABNORMAL ECG PREVIOUS TRACING : 04/04/2018 06.33 No significant change when compared with previous DOCTOR: Seamus Lockhart Interpretating Date/Time 05/11/2018 20:46:08
[2018-05-12] MEDS: Acetaminophen 325 MG Tablet PO PRN ×2 (00:33→21:24)
[2018-05-12] MEDS: Piperacil/Tazo 3.375 GM Premix 50 ML IV.SIG SCH ×3 (06:28→18:31)
[2018-05-12 07:06] LABS: Baso # (Auto) 0.1 th/mm3 (0.0-0.2); Baso % (Auto) 0.7 % (0.0-2.0); Eos # (Auto) 0.1 th/mm3 (0.0-0.4); Eos % (Auto) 0.8 % (0.0-4.0); Hematocrit 30.2 % (39.0-51.0); Hemoglobin 9.9 gm/dL (13.0-17.0); Lymph # (Auto) 1.4 th/mm3 (1.0-4.8); Mean Corpuscular HGB Conc 32.9 % (32.0-36.0); Mean Corpuscular Hemoglobin 28.6 pg (27.0-34.0); Mean Corpuscular Volume 87.1 fL (80.0-100.0); Mean Platelet Volume 7.9 fL (7.0-11.0); Mono # (Auto) 1.2 th/mm3 (0.0-0.9); Mono % (Auto) 8.6 % (0.0-8.0); Neut # (Auto) 11.5 th/mm3 (1.8-7.7); Neut % (Auto) 79.9 % (16.0-70.0); Platelet Count 358 th/mm3 (150-450); Red Blood Count 3.47 mil/mm3 (4.50-5.90); Red Cell Distribution Width 14.1 % (11.6-17.2); White Blood Count 14.4 th/mm3 (4.0-11.0)
[2018-05-12 07:32] LABS: Calcium 7.9 mg/dL (8.5-10.1); Carbon Dioxide 27.3 meq/L (21.0-32.0); Potassium 3.4 meq/L (3.5-5.1)
--- NOTE | 2018-05-12 09:02 | P.PNPOD ---
Subjective Interval history: No events overnight Physical Exam Vital signs: Vital Signs 05/11/18 12:00 05/11/18 18:47 05/11/18 19:00 Temperature 100 F H 98.7 F Pulse Rate 68 82 76 Respiratory Rate 20 Blood Pressure 125/63 117/58 L 128/72 Pulse Oximetry 98 98 05/11/18 19:15 05/11/18 19:30 05/11/18 19:37 Temperature 99.0 F Pulse Rate 76 72 72 Respiratory Rate Blood Pressure 130/72 136/70 Pulse Oximetry 98 97 97 05/11/18 20:00 05/11/18 21:50 05/12/18 00:00 Temperature 97.4 F L 102.8 F H Pulse Rate 87 87 86 Respiratory Rate 19 17 Blood Pressure 159/72 H 155/70 H Pulse Oximetry 97 94 L 05/12/18 04:00 Temperature 101.6 F H Pulse Rate 77 Respiratory Rate 17 Blood Pressure 123/56 L Pulse Oximetry 96 Intake & Output 05/11/18 05/12/18 05/12/18 18:59 06:59 18:59 Intake Total 5 / 2065 1969 Output Total 50 / 50 950 / 950 Balance 2014 1020 / 1020 Weight 119.8 kg Intake: IV 1565 / 1565 1550 / 1550 NS Inj 1,000 ML @ 125 mls/hr IV 1000 / 1000 1000 / 1000 .CONT .Q8H [facility] Rx#:[id number] LR 1000 mL Inj 1,000 ML @ 30 500 / 500 mls/hr IV.SIG .Q24H [facility] Rx#: [id number] Zosyn 3.375 GM Premix 50 ML @ 50 / 50 50 / 50 100 mls/hr IV.SIG Q6H [facility] Rx#: [id number] Vancomycin Inj 1,500 MG In NS 515 / 515 Inj 500 ML @ 265 mls/hr IV.SIG Q12H [facility] Rx#:[id number] Oral 420 / 420 Anesthesia Amount 500 / 500 Output: Urine 950 / 950 Estimated Blood Loss 50 / 50 Other: Weight On Admission 119.6 kg Narrative: Right lower extremity, packing intact mild decrease in edema and erythema, significant swelling of third digit remains dorsal and plantar I&D site open and draining impressive edema remains up to ankle foot is warm pulses are palpable sensation decreased to light touch Left lower extremity, minimally fibrotic plantar medial MPJ wound without drainage or redness, pedal pulses palpable sensation decreased to light touch bunion deformity noted Medications and Allergies Active Medications: Active Medications Acetaminophen (Tylenol) 650 mg PO Q4H PRN PRN Reason: FEVER > 100.4 F Last Admin: 05/12/18 00:33 Dose: 650 mg Al Hydroxide/Mg Hydroxide (Milk Of Magnesia Liq) 30 ml PO Q12H PRN PRN Reason: Mild Constipation Bisacodyl (Dulcolax Supp) 10 mg RECTAL DAILY PRN PRN Reason: SEVERE CONSITIPATION Chlorhexidine Gluconate (Chlorhexidine 2% Cloth) 3 pack TOPICAL RN CHILD [facility] Stop: 05/14/18 14:53 Clonidine HCl (Catapres) 0.1 mg PO Q6H PRN PRN Reason: SBP>160, DBP>90 Sodium Chloride (Ns Inj) 1,000 mls @ 125 mls/hr IV.CONT .Q8H [facility] Last Admin: 05/11/18 23:13 Dose: 125 mls/hr Pharmacy Profile Note (Vancomycin Consult Pharmacy) 0 mls @ 0 mls/hr OTHER [facility] Piperacillin/Tazobactam/Dextrose (Zosyn 3.375 Gm Premix) 50 mls @ 100 mls/hr IV.SIG Q6H [facility] Last Admin: 05/12/18 06:28 Dose: 100 mls/hr Vancomycin HCl 1,500 mg/ (Sodium Chloride) 515 mls @ 265 mls/hr IV.SIG Q12H [facility] Last Admin: 05/11/18 23:14 Dose: 265 mls/hr Lactated Ringer's (Lr 1000 Ml Inj) 1,000 mls @ 30 mls/hr IV.SIG .Q24H [facility] Stop: 05/14/18 14:53 Last Infusion: 05/11/18 19:08 Dose: Infused Sodium Chloride (Ns Inj) 500 mls @ 30 mls/hr IV.SIG .Q10H [facility] Stop: 05/14/18 14:53 Lactulose (Lactulose Liq) 30 ml PO DAILY PRN PRN Reason: SEVERE CONSITIPATION Metoprolol Tartrate (Lopressor) 25 mg PO RN CHILD [facility] Stop: 05/14/18 14:53 Miscellaneous Information ([facility] Ordered Lab Info) 0 each OTHER ONCE ONE Stop: 05/12/18 21:46 Miscellaneous Information ([facility]) 1 each OTHER UNSCH PRN PRN Reason: SEE LABEL COMMENTS Stop: 05/12/18 18:48 Ondansetron HCl (Zofran Inj) 4 mg IV.PUSH Q6H PRN PRN Reason: NAUSEA OR VOMITING Povidone Iodine (Betadine 5% Antisepsis Kit) 1 applicatio EACH NARE RN CHILD [facility] Stop: 05/14/18 14:53 Senna/Docusate Sodium (Aubree-Colace) 1 tab PO BID [facility] Last Admin: 05/11/18 23:12 Dose: 1 tab Sennosides (Senokot) 17.2 mg PO Q12H PRN PRN Reason: Moderate Constipation Sodium Chloride (Ns Flush) 2 ml IV.FLUSH BID [facility] Last Admin: 05/11/18 23:12 Dose: Not Given Sodium Chloride (Ns Flush) 2 ml IV.FLUSH PRN PRN PRN Reason: FLUSH AFTER USING IV ACCESS Temazepam (Restoril) 15 mg PO HS PRN PRN Reason: INSOMNIA Allergies Allergy/AdvReac Type Severity Reaction Status Date / Time No Known Allergies Allergy Verified 05/11/18 06:14 Home Medications Medication Instructions Recorded Confirmed Type lisinopril 10 mg PO BID 05/11/18 05/11/18 History Results - Labs CBC & Chem 7: 05/12/18 05:26 05/12/18 05:26 Laboratory Results - last 24 hr 05/11/18 05/12/18 05/12/18 10:39 05:26 05:26 WBC 21.3 H 14.4 H RBC 3.71 L 3.47 L Hgb 10.6 L D 9.9 L Hct 32.2 L 30.2 L MCV 86.8 87.1 MCH 28.4 28.6 MCHC 32.7 32.9 RDW 14.1 14.1 Plt Count 369 358 MPV 7.9 7.9 Neut % (Auto) 91.3 H 79.9 H Lymph % (Auto) 4.2 L 10.0 [place] % (Auto) 3.6 8.6 H Eos % (Auto) 0.3 0.8 Baso % (Auto) 0.6 0.7 Neut # (Auto) 19.4 H 11.5 H Lymph # (Auto) 0.9 L 1.4 [place] # (Auto) 0.8 1.2 H Eos # (Auto) 0.1 0.1 Baso # (Auto) 0.1 0.1 WBC Differential . . Differential Comment Auto diff final Auto diff final Sodium 139 Potassium 3.4 L Chloride 104 Carbon Dioxide 27.3 Anion Gap 8 BUN 11 Creatinine 0.94 Estimated GFR 82 L Random Glucose 82 Calcium 7.9 L Microbiology 05/10/18 22:50 Wound - Foot Gram Stain - Final 05/10/18 22:50 Blood - Peripheral Aerobic Blood Culture - Preliminary No growth in 1 day 05/10/18 22:50 Blood - Peripheral Anaerobic Blood Culture - Preliminary No growth in 1 day 05/10/18 22:45 Blood - Peripheral Aerobic Blood Culture - Preliminary No growth in 1 day 05/10/18 22:45 Blood - Peripheral Anaerobic Blood Culture - Preliminary No growth in 1 day - Imaging Impressions Foot MRI 05/11/18 00:00 CONCLUSION: 1. Significant degenerative change within multiple joints with subarticular cystic formation and marrow edema as above. 2. Extensive degenerative edema involving the patient's foot diffusely with focal areas of somewhat limited tracking within the subcutaneous tissues particularly dorsally at the level of the distal third and fourth metatarsals, however no definite abscess is identified. 3. Nonspecific edema of the third distal metatarsal bone and calcaneus. Assessment and Plan - Assessment (1) Ulcer of left foot Code(s): L97.529 - Non-pressure chronic ulcer of other part of left foot with unspecified severity Status: Acute (2) Abscess of right foot Code(s): L02.611 - Cutaneous abscess of right foot Status: Acute - Plan Plan for repeat incision drainage debridement right foot with possible isolated metatarsal head resection, may need lesser digit amputation pending on progress over the next 24 hours, left foot may need debridement with artificial skin graft however infection may need to clear prior. Surgery likely thursday. Patient appears to be responding, will sign out to Dr. Nallely Gabriel
[2018-05-12] MEDS: Vancomycin Inj 1,500 MG in Sodium Chlor 0.9% Inj 500 ML IV.SIG SCH ×2 (09:03→22:27)
[2018-05-12] MEDS: Senna/Docusate Sodium 8.6/50 MG Tablet PO SCH ×2 (09:04→22:28)
[2018-05-12] MEDS: Sod Chloride 0.9% Inj 1,000 ML IV.CONT SCH ×3 (09:04→22:27)
--- NOTE | 2018-05-12 10:30 | P.PNIM ---
Subjective Interval history: Reports pain overall control. No other concerns at this time. Physical Exam Vital signs: Vital Signs 05/11/18 12:00 05/11/18 18:47 05/11/18 19:00 Temperature 100 F H 98.7 F Pulse Rate 68 82 76 Respiratory Rate 20 Blood Pressure 125/63 117/58 L 128/72 Pulse Oximetry 98 98 05/11/18 19:15 05/11/18 19:30 05/11/18 19:37 Temperature 99.0 F Pulse Rate 76 72 72 Respiratory Rate Blood Pressure 130/72 136/70 Pulse Oximetry 98 97 97 05/11/18 20:00 05/11/18 21:50 05/12/18 00:00 Temperature 97.4 F L 102.8 F H Pulse Rate 87 87 86 Respiratory Rate 19 17 Blood Pressure 159/72 H 155/70 H Pulse Oximetry 97 94 L 05/12/18 04:00 Temperature 101.6 F H Pulse Rate 77 Respiratory Rate 17 Blood Pressure 123/56 L Pulse Oximetry 96 Intake & Output 05/11/18 05/12/18 05/12/18 18:59 06:59 18:59 Intake Total 2065 / 2065 2485 / 2485 1000 / 1000 Output Total 50 / 50 950 / 950 Balance 2014 1535 / 1535 1000 / 1000 Weight 119.8 kg Intake: IV 1565 / 1565 2064 / 2065 1000 / 1000 NS Inj 1,000 ML @ 125 mls/hr IV 1000 / 1000 1000 / 1000 1000 / 1000 .CONT .Q8H [facility] Rx#:[id number] LR 1000 mL Inj 1,000 ML @ 30 500 / 500 mls/hr IV.SIG .Q24H [facility] Rx#: [id number] Zosyn 3.375 GM Premix 50 ML @ 50 / 50 50 / 50 100 mls/hr IV.SIG Q6H [facility] Rx#: [id number] Vancomycin Inj 1,500 MG In NS 515 / 515 515 / 515 Inj 500 ML @ 265 mls/hr IV.SIG Q12H [facility] Rx#:[id number] Oral 420 / 420 Anesthesia Amount 500 / 500 Output: Urine 950 / 950 Estimated Blood Loss 50 / 50 Other: Weight On Admission 119.6 kg Narrative: GENERAL: This is a well-nourished, well-developed patient, in no apparent distress. CARDIOVASCULAR: Regular rate and rhythm RESPIRATORY: Clear to auscultation. Breath sounds equal bilaterally. No wheezes , rales, or rhonchi. GASTROINTESTINAL: Abdomen soft, non-tender, nondistended. Normal active bowel sounds MUSCULOSKELETAL: Bilateral feet bandage clean dry intact NEURO: Alert and oriented to person place and time. Moves all ext x4 Results - Labs CBC & Chem 7: 05/12/18 05:26 05/12/18 05:26 Laboratory Results - last 24 hr 05/11/18 05/12/18 05/12/18 10:39 05:26 05:26 WBC 21.3 H 14.4 H RBC 3.71 L 3.47 L Hgb 10.6 L D 9.9 L Hct 32.2 L 30.2 L MCV 86.8 87.1 MCH 28.4 28.6 MCHC 32.7 32.9 RDW 14.1 14.1 Plt Count 369 358 MPV 7.9 7.9 Neut % (Auto) 91.3 H 79.9 H Lymph % (Auto) 4.2 L 10.0 [place] % (Auto) 3.6 8.6 H Eos % (Auto) 0.3 0.8 Baso % (Auto) 0.6 0.7 Neut # (Auto) 19.4 H 11.5 H Lymph # (Auto) 0.9 L 1.4 [place] # (Auto) 0.8 1.2 H Eos # (Auto) 0.1 0.1 Baso # (Auto) 0.1 0.1 WBC Differential . . Differential Comment Auto diff final Auto diff final Sodium 139 Potassium 3.4 L Chloride 104 Carbon Dioxide 27.3 Anion Gap 8 BUN 11 Creatinine 0.94 Estimated GFR 82 L Random Glucose 82 Calcium 7.9 L Microbiology 05/11/18 18:18 Wound - Foot Gram Stain - Final 05/10/18 22:50 Wound - Foot Gram Stain - Final 05/10/18 22:50 Blood - Peripheral Aerobic Blood Culture - Preliminary No growth in 1 day 05/10/18 22:50 Blood - Peripheral Anaerobic Blood Culture - Preliminary No growth in 1 day 05/10/18 22:45 Blood - Peripheral Aerobic Blood Culture - Preliminary No growth in 1 day 05/10/18 22:45 Blood - Peripheral Anaerobic Blood Culture - Preliminary No growth in 1 day - Imaging Impressions Foot MRI 05/11/18 00:00 CONCLUSION: 1. Significant degenerative change within multiple joints with subarticular cystic formation and marrow edema as above. 2. Extensive degenerative edema involving the patient's foot diffusely with focal areas of somewhat limited tracking within the subcutaneous tissues particularly dorsally at the level of the distal third and fourth metatarsals, however no definite abscess is identified. 3. Nonspecific edema of the third distal metatarsal bone and calcaneus. Assessment and Plan - Assessment (1) Hypertension Code(s): I10 - Essential (primary) hypertension Status: Chronic - Plan Assessment/plan: 1. Sepsis with Right foot infection abscess status post operative day #1 right I&D dorsal and plantar surface Continue postoperative care and wound care per Dr. Lopez. Patient will need further surgical intervention with repeat I&D of the right foot and possible metatarsal head resection versus digit resection and skin grafts. This is likely plan for this Thursday. MRI results reviewed Blood/wound cultures pending Vancomycin/Zosyn 2. Hypertension Continue home lisinopril IV Vasotec as needed. As needed 3. Hypokalemia Replete (1) Hypertension Qualifiers: Hypertension type: essential hypertension Qualified Code(s): I10 - Essential (primary) hypertension
[2018-05-12] MEDS: Lisinopril 10 MG Tablet PO SCH (21:23)
[2018-05-12] MEDS ORDERED: Pharmacy Ordered Lab Info OTHER ONE (21:45)
[2018-05-13] MEDS: Temazepam 15 MG Capsule PO PRN (00:23)
[2018-05-13] MEDS: Piperacil/Tazo 3.375 GM Premix 50 ML IV.SIG SCH ×4 (00:23→17:53)
[2018-05-13] MEDS: Sod Chloride 0.9% Inj 1,000 ML IV.CONT SCH ×3 (06:06→22:25)
[2018-05-13] MEDS: Senna/Docusate Sodium 8.6/50 MG Tablet PO SCH ×2 (09:31→20:39)
[2018-05-13] MEDS: Lisinopril 10 MG Tablet PO SCH ×2 (09:31→20:38)
[2018-05-13] MEDS: Vancomycin Inj 1,500 MG in Sodium Chlor 0.9% Inj 500 ML IV.SIG SCH ×2 (10:27→18:47)
--- NOTE | 2018-05-13 10:48 | P.PNIM ---
Subjective Interval history: Reports he is open to going to surgery again today he wants salvage as much of his foot as possible. Pain overall control. Physical Exam Vital signs: Vital Signs 05/12/18 12:00 05/12/18 16:00 05/12/18 20:00 Temperature 98.7 F 99.5 F 102.8 F H Pulse Rate 66 83 82 Respiratory Rate 20 20 18 Blood Pressure 122/59 L 182/92 H 163/78 H Pulse Oximetry 97 97 96 05/13/18 00:00 05/13/18 04:00 05/13/18 08:00 Temperature 98.2 F 100.3 F H 97.9 F Pulse Rate 88 82 77 Respiratory Rate 18 18 16 Blood Pressure 133/60 107/65 166/88 H Pulse Oximetry 97 98 94 L Intake & Output 05/12/18 05/13/18 05/13/18 18:59 06:59 18:59 Intake Total 3645 / 3645 630 / 630 1000 / 1000 Output Total 1400 / 1400 1275 / 1275 Balance 2245 / 2245 -645 / -645 1000 / 1000 Weight 119.6 kg Intake: IV 2565 / 2565 150 / 150 1000 / 1000 NS Inj 1,000 ML @ 125 mls/hr IV 2000 / 2000 1000 / 1000 .CONT .Q8H [facility] Rx#:[id number] Zosyn 3.375 GM Premix 50 ML @ 50 / 50 150 / 150 100 mls/hr IV.SIG Q6H [facility] Rx#: [id number] Vancomycin Inj 1,500 MG In NS 515 / 515 Inj 500 ML @ 265 mls/hr IV.SIG Q12H [facility] Rx#:[id number] Oral 1080 / 1080 480 / 480 Output: Urine 1400 / 1400 1275 / 1275 Other: Date of Last Bowel Movement 05/12/18 # Bowel Movements 1 0 Narrative: GENERAL: This is a well-nourished, well-developed patient, in no apparent distress. CARDIOVASCULAR: Regular rate and rhythm RESPIRATORY: Clear to auscultation. Breath sounds equal bilaterally. No wheezes , rales, or rhonchi. GASTROINTESTINAL: Abdomen soft, non-tender, nondistended. Normal active bowel sounds MUSCULOSKELETAL: Bilateral feet bandage clean dry intact, NEURO: Alert and oriented to person place and time. Moves all ext x4 Results - Labs CBC & Chem 7: 05/12/18 05:26 05/12/18 05:26 Laboratory Results - last 24 hr 05/12/18 22:19 Vancomycin Trough 11.0 H Microbiology 05/10/18 22:50 Wound - Foot Gram Stain - Final 05/10/18 22:50 Wound - Foot Wound Culture - Preliminary S. aureus MRSA gram negative rods Group A beta (Strep pyogenes) 05/11/18 03:40 Clean Catch Urine Urine Culture - Final No growth in 48 hours 05/11/18 18:18 Wound - Foot Gram Stain - Final 05/11/18 18:18 Wound - Foot Wound Culture - Preliminary 05/10/18 22:50 Blood - Peripheral Aerobic Blood Culture - Preliminary No growth in 2 days 05/10/18 22:50 Blood - Peripheral Anaerobic Blood Culture - Preliminary No growth in 2 days 05/10/18 22:45 Blood - Peripheral Aerobic Blood Culture - Preliminary No growth in 2 days 05/10/18 22:45 Blood - Peripheral Anaerobic Blood Culture - Preliminary No growth in 2 days - Procedures 05/10 I&D dorsal and plantar surface right foot Assessment and Plan - Assessment (1) Hypertension Code(s): I10 - Essential (primary) hypertension Status: Chronic - Plan Assessment/plan: 1. Sepsis with Right foot infection abscess status post operative day #2 right I&D dorsal and plantar surface Continue postoperative care and wound care per Dr. Lopez. Patient will need further surgical intervention with repeat I&D of the right foot and possible metatarsal head resection versus digit resection and skin grafts. Repeat surgical intervention for further debridement today. MRI results reviewed Blood/wound cultures shows MRSA, group B strep and gram-negative rods. Follow- up with final cultures and sensitivity. Continue with IV vancomycin/Zosyn 2. Hypertension, chronic essential Continue home lisinopril IV Vasotec as needed. As needed 3. Hypokalemia Replete 4. DVT prophylaxisanticoagulation on hold due to surgical intervention. (1) Hypertension Qualifiers: Hypertension type: essential hypertension Qualified Code(s): I10 - Essential (primary) hypertension
[2018-05-13] MEDS ORDERED: Phenylephrine/NS 1000 MCG/10ML Syringe IV.PUSH ONE (12:00)
--- NOTE | 2018-05-13 13:12 | P.PNPOD ---
Subjective Interval history: Patient seen bedside. Denies any nausea vomiting fevers or chills. Would like to keep as much of his foot as possible. 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 Physical Exam Vital signs: Vital Signs 05/12/18 16:00 05/12/18 20:00 05/13/18 00:00 Temperature 99.5 F 102.8 F H 98.2 F Pulse Rate 83 82 88 Respiratory Rate 20 18 18 Blood Pressure 182/92 H 163/78 H 133/60 Pulse Oximetry 97 96 97 05/13/18 04:00 05/13/18 08:00 Temperature 100.3 F H 97.9 F Pulse Rate 82 77 Respiratory Rate 18 16 Blood Pressure 107/65 166/88 H Pulse Oximetry 98 94 L Intake & Output 05/12/18 05/13/18 05/13/18 18:59 06:59 18:59 Intake Total 3645 / 3645 630 / 630 1515 / 1515 Output Total 1400 / 1400 1275 / 1275 Balance 2245 / 2245 -645 / -645 1515 / 1515 Weight 119.6 kg Intake: IV 2565 / 2565 150 / 150 1515 / 1515 NS Inj 1,000 ML @ 125 mls/hr IV 2000 / 2000 1000 / 1000 .CONT .Q8H [facility] Rx#:[id number] Zosyn 3.375 GM Premix 50 ML @ 50 / 50 150 / 150 100 mls/hr IV.SIG Q6H [facility] Rx#: [id number] Vancomycin Inj 1,500 MG In NS 515 / 515 515 / 515 Inj 500 ML @ 265 mls/hr IV.SIG Q8H [facility] Rx#:[id number] Oral 1080 / 1080 480 / 480 Output: Urine 1400 / 1400 1275 / 1275 Other: Date of Last Bowel Movement 05/12/18 # Bowel Movements 1 0 Narrative: Packing present to right foot with dorsal plantar incision, seropurulent drainage noted. Extensive edema noted to right foot and ankle. Capillary refill time present to digits present. Medications and Allergies Active Medications: Active Medications Acetaminophen (Tylenol) 650 mg PO Q4H PRN PRN Reason: FEVER > 100.4 F Last Admin: 05/12/18 21:24 Dose: 650 mg Al Hydroxide/Mg Hydroxide (Milk Of Magnesia Liq) 30 ml PO Q12H PRN PRN Reason: Mild Constipation Bisacodyl (Dulcolax Supp) 10 mg RECTAL DAILY PRN PRN Reason: SEVERE CONSITIPATION Chlorhexidine Gluconate (Chlorhexidine 2% Cloth) 3 pack TOPICAL PHARMACOLOGIST [facility] Stop: 05/14/18 14:53 Enalaprilat (Vasotec Inj) 1.25 mg IV.PUSH Q6H PRN PRN Reason: SEE LABEL COMMENTS Last Admin: 05/12/18 18:31 Dose: 1.25 mg Sodium Chloride (Ns Inj) 1,000 mls @ 125 mls/hr IV.CONT .Q8H [facility] Last Admin: 05/13/18 12:22 Dose: 125 mls/hr Pharmacy Profile Note (Vancomycin Consult Pharmacy) 0 mls @ 0 mls/hr OTHER [facility]NS[facility] Piperacillin/Tazobactam/Dextrose (Zosyn 3.375 Gm Premix) 50 mls @ 100 mls/hr IV.SIG Q6H [facility] Last Admin: 05/13/18 12:23 Dose: 100 mls/hr Lactated Ringer's (Lr 1000 Ml Inj) 1,000 mls @ 30 mls/hr IV.SIG .Q24H [facility] Stop: 05/14/18 14:53 Last Admin: 05/12/18 18:31 Dose: Not Given Sodium Chloride (Ns Inj) 500 mls @ 30 mls/hr IV.SIG .Q10H [facility] Stop: 05/14/18 14:53 Vancomycin HCl 1,500 mg/ (Sodium Chloride) 515 mls @ 265 mls/hr IV.SIG Q8H [facility] Last Infusion: 05/13/18 12:23 Dose: Infused Lactulose (Lactulose Liq) 30 ml PO DAILY PRN PRN Reason: SEVERE CONSITIPATION Lisinopril (Prinivil) 10 mg PO BID [facility] Last Admin: 05/13/18 09:31 Dose: 10 mg Metoprolol Tartrate (Lopressor) 25 mg PO PHARMACOLOGIST [facility] Stop: 05/14/18 14:53 Miscellaneous Information ([facility] Ordered Lab Info) 0 each OTHER ONCE ONE Stop: 05/14/18 09:46 Ondansetron HCl (Zofran Inj) 4 mg IV.PUSH Q6H PRN PRN Reason: NAUSEA OR VOMITING Oxycodone/Acetaminophen (Percocet 5/325 Mg) 1 tab PO Q6H PRN PRN Reason: PAIN SCALE 1 TO 10 Last Admin: 05/13/18 12:25 Dose: 1 tab Povidone Iodine (Betadine 5% Antisepsis Kit) 1 applicatio EACH NARE PHARMACOLOGIST [facility] Stop: 05/14/18 14:53 Senna/Docusate Sodium (Aubree-Colace) 1 tab PO BID [facility] Last Admin: 05/13/18 09:31 Dose: Not Given Sennosides (Senokot) 17.2 mg PO Q12H PRN PRN Reason: Moderate Constipation Sodium Chloride (Ns Flush) 2 ml IV.FLUSH BID [facility] Last Admin: 05/13/18 09:32 Dose: Not Given Sodium Chloride (Ns Flush) 2 ml IV.FLUSH PRN PRN PRN Reason: FLUSH AFTER USING IV ACCESS Temazepam (Restoril) 15 mg PO HS PRN PRN Reason: INSOMNIA Last Admin: 05/13/18 00:23 Dose: 15 mg Allergies Allergy/AdvReac Type Severity Reaction Status Date / Time No Known Allergies Allergy Verified 05/11/18 06:14 Home Medications Medication Instructions Recorded Confirmed Type lisinopril 10 mg PO BID 05/11/18 05/11/18 History Results - Labs CBC & Chem 7: 05/12/18 05:26 05/12/18 05:26 Laboratory Results - last 24 hr 05/12/18 22:19 Vancomycin Trough 11.0 H Microbiology 05/11/18 18:18 Wound - Foot Acid Fast Bacilli Smear - Final No acid fast bacilli seen 05/11/18 18:18 Wound - Foot Gram Stain - Final 05/11/18 18:18 Wound - Foot Wound Culture - Final S. aureus MRSA Group A beta (Strep pyogenes) 05/10/18 22:50 Blood - Peripheral Aerobic Blood Culture - Preliminary No growth in 3 days 05/10/18 22:50 Blood - Peripheral Anaerobic Blood Culture - Preliminary No growth in 3 days 05/10/18 22:45 Blood - Peripheral Aerobic Blood Culture - Preliminary No growth in 3 days 05/10/18 22:45 Blood - Peripheral Anaerobic Blood Culture - Preliminary No growth in 3 days 05/10/18 22:50 Wound - Foot Gram Stain - Final 05/10/18 22:50 Wound - Foot Wound Culture - Preliminary S. aureus MRSA gram negative rods Group A beta (Strep pyogenes) 05/11/18 03:40 Clean Catch Urine Urine Culture - Final No growth in 48 hours - Procedures 05/10 I&D dorsal and plantar surface right foot Assessment and Plan - Assessment (1) Ulcer of left foot Code(s): L97.529 - Non-pressure chronic ulcer of other part of left foot with unspecified severity Status: Acute (2) Abscess of right foot Code(s): L02.611 - Cutaneous abscess of right foot Status: Acute - Plan 57-year-old male status post Incision drainage debridement right foot Patient examined and evaluated with all questions answered To OR today for right foot second and third metatarsal head excision and left foot debridement and irrigation of ulcer Patient understands all risks benefits complications associated with procedure would like to proceed with surgical intervention Will obtain OR cultures and proximal clearing margin Continue IV antibiotics
[2018-05-13] MEDS ORDERED: Bupivacaine PF 0.5% Inj 30 ML Vial ONE (15:02)
--- NOTE | 2018-05-13 16:31 | P.PCN ---
Date of procedure: 05/13/18 Pre-op diagnosis: Right foot infection, second third metatarsal OM, Left foot ulcer Post-op diagnosis: same Procedure: Right foot debridement and irrigation with second, third metatarsal head resection Left foot ulcer debridement Anesthesia: GONZALOA Surgeon: Nallely Gabriel Estimated blood loss (mL): 20 Pathology: other (Right second, third metatarsal to path, Proximal clearing margin to path and micro) Condition: stable Disposition: PACU (To PACU with VSS and NVS intact to bilateral foot)
[2018-05-13] MEDS ORDERED: Misc Info for Pharmacy OTHER STA (16:39)
[2018-05-13] MEDS ORDERED: *morphine SULFATE 4 MG/ML PERIprocedure ONLY ONE (16:42)
[2018-05-13] MEDS ORDERED: fentaNYL Citrate Inj 100 MCG/2 ML Ampul ONE (16:44)
[2018-05-13] MEDS ORDERED: *Meperidine Inj 25 MG/ML Vial PERIprocedural Use ONLY ONE (16:45)
--- NOTE | 2018-05-13 17:10 | MR ---
cc: Nallely Gabriel DPM DATE: 05/13/2018 SURGEON: Nallely Gabriel DPM SUPREME COURT JUDGE: None. PREOPERATIVE DIAGNOSES: Right foot infection, right foot third metatarsal and second metatarsal osteomyelitis, left foot ulcer plantar hallux. POSTOPERATIVE DIAGNOSES: Right foot infection, right foot third metatarsal and second metatarsal osteomyelitis, left foot ulcer plantar hallux. PROCEDURE PERFORMED: Right foot debridement and irrigation with resection of second and third metatarsal heads, left foot ulcer debridement. ANESTHESIA: General with a local infiltrate of 12 mL of 0.5% Marcaine plain to the right foot and 6 mL of 0.5% Marcaine plain to the left foot. HEMOSTASIS: None. ESTIMATED BLOOD LOSS: 20 mL to the right foot. Less than 5 mL to the left foot. MATERIALS: 3-0 Prolene. INJECTABLES: None. COMPLICATIONS: None. INDICATIONS FOR PROCEDURE: The patient is a 57-year-old male who underwent incision and drainage of right foot on 05/11/2018 for a right foot infection. MRI showed marrow edema to the second metatarsal as well as third metatarsal. Upon inspection of the right foot, he has exposed second and third metatarsal head with a significant plantar ulceration with associated erythema and edema to right foot globally. Decision was made to take the patient back to the OR for repeat debridement and irrigation with the second and third metatarsal head resections and left foot ulcer debridement. The patient understands all benefits, alternatives, and complications associated with the procedure. He would like to proceed with the above-mentioned procedure. DESCRIPTION OF PROCEDURE: The patient was brought to the operating room, placed on the operating table in the supine position, and general anesthesia was then induced. The 12 mL 0.5% Marcaine plain was infiltrated to the right foot, 6 mL of Marcaine plain was infiltrated to the left foot. Bilateral feet were then prepped and draped in the usual sterile fashion. Attention was then directed to the right foot where a suture was present to dorsal aspect and plantar aspect of right foot. There was noted to be serous drainage upon inspection. Suture was removed to the dorsal and plantar incision. These incisions were irrigated copiously with normal saline. Following irrigation, all necrotic nonviable skin, soft tissue, muscle, bone debrided from the wound. At this time and it was decided to perform metatarsal resection. Sagittal saw was utilized to resect the second and third metatarsal head, which were both passed from the field. Proximal clearing margin of the third metatarsal was sent for pathology following copious irrigation. Proximal clearing margin of second metatarsal was sent for pathology as well as for micro. Once again debridement of all nonviable tissue was performed. Full-thickness excisional debridement to bone was performed. The site was then copiously irrigated once again. A 3-0 Prolene was utilized to reapproximate skin on the dorsal incision. A wound VAC was utilized on dorsal incision as well as deep plantar wound. Wound VAC was functioning at 125 mm and the right foot was dressed with cast padding and PARTH. Attention was then directed to the left foot, where a #15 blade was utilized to perform a full-thickness excisional debridement to subcutaneous tissue. All necrotic nonviable tissue was debrided from the ulceration which was found to have plantar hallux. This was dressed with Xeroform, cast padding and PARTH. The patient tolerated the procedure and anesthesia well. He will have wound VAC changed in 48 hours. The patient will remain in-house for IV antibiotics. AJITH Ordonez , 04:37 PM , 05:08 PM AKSHAT
--- NOTE | 2018-05-13 18:02 | XR ---
EXAM DATE: 05/13/2018 5:22 PM EDT AGE/SEX: 57 years / Male INDICATIONS: Post operation. CLINICAL DATA: This is the patient's initial encounter. Patient reports that signs and symptoms have been present for 1 day and indicates a pain score of Nonresponsive. MEDICAL/SURGICAL HISTORY: . Hypertension. neuropathy . . Right second toe amputation COMPARISON: [facility] [place], FOOT COMPLETE RIGHT 3V, 05/10/2018. . FINDINGS: Postoperative changes are identified in the right forefoot. The second and third toes as well as the distal second and third metatarsals have been amputated. Severe hallux valgus deformity great toe remains evident. Hammertoe deformity of the fourth and fifth toes are again noted. CONCLUSION: Postoperative deformity of the right forefoot following second and third toe amputations. Electronically signed by: Ricci Gutierrez MD 05/13/2018 6:01 PM EDT
[2018-05-14] MEDS: Temazepam 15 MG Capsule PO PRN ×2 (00:01→21:35)
[2018-05-14] MEDS: Sod Chloride 0.9% Inj 1,000 ML IV.CONT SCH ×3 (00:02→12:20)
[2018-05-14] MEDS: Vancomycin Inj 1,500 MG in Sodium Chlor 0.9% Inj 500 ML IV.SIG SCH ×2 (02:40→10:11)
[2018-05-14] MEDS: Piperacil/Tazo 3.375 GM Premix 50 ML IV.SIG SCH ×5 (04:38→22:17)
[2018-05-14] MEDS: Senna/Docusate Sodium 8.6/50 MG Tablet PO SCH ×2 (08:44→21:34)
[2018-05-14] MEDS: Lisinopril 10 MG Tablet PO SCH ×2 (08:44→21:34)
[2018-05-14] MEDS ORDERED: Pharmacy Ordered Lab Info OTHER ONE (09:45)
--- NOTE | 2018-05-14 13:28 | P.PNIM ---
Subjective Interval history: Complaining of itchy rash and has back. Otherwise right foot pain controlled and no other complaints at this time. Physical Exam Vital signs: Vital Signs 05/13/18 16:35 05/13/18 16:45 05/13/18 17:00 Temperature 98.2 F Pulse Rate 74 82 86 Respiratory Rate 16 16 16 Blood Pressure 115/56 L 145/66 H 126/61 Pulse Oximetry 95 95 05/13/18 20:00 05/14/18 00:00 05/14/18 04:00 Temperature 100.0 F H 99.7 F H 99.7 F H Pulse Rate 77 82 83 Respiratory Rate 18 16 18 Blood Pressure 128/72 124/59 L 138/67 Pulse Oximetry 95 93 L 93 L 05/14/18 08:00 05/14/18 12:00 Temperature 97.6 F 98.9 F Pulse Rate 76 80 Respiratory Rate 20 20 Blood Pressure 144/76 H 151/76 H Pulse Oximetry 92 L 92 L Intake & Output 05/13/18 05/14/18 05/14/18 18:59 06:59 18:59 Intake Total 2365 / 2365 3525 / 3525 1565 / 1565 Output Total 545 / 545 550 / 550 Balance 1820 / 1820 2975 / 2975 1565 / 1565 Weight 121.9 kg Intake: IV 1615 / 1615 3165 / 3165 1565 / 1565 NS Inj 1,000 ML @ 125 mls/hr IV 1000 / 1000 2000 / 2000 1000 / 1000 .CONT .Q8H [facility] Rx#:[id number] Zosyn 3.375 GM Premix 50 ML @ 100 / 100 100 / 100 50 / 50 100 mls/hr IV.SIG Q6H [facility] Rx#: [id number] Vancomycin Inj 1,500 MG In NS 515 / 515 1065 / 1065 515 / 515 Inj 500 ML @ 265 mls/hr IV.SIG Q8H [facility] Rx#:[id number] Oral 360 / 360 Anesthesia Amount 750 / 750 Output: Urine 500 / 500 550 / 550 Estimated Blood Loss 20 / 20 Wound Vac Amount 25 / 25 Left Foot 25 / 25 Other: Mode Setting Left Foot Continuous Continuous Right Foot Continuous Continuous Date of Last Bowel Movement 05/12/18 # Bowel Movements 0 Narrative: GENERAL: This is a well-nourished, well-developed patient, in no apparent distress. CARDIOVASCULAR: Regular rate and rhythm RESPIRATORY: Clear to auscultation. Breath sounds equal bilaterally. No wheezes , rales, or rhonchi. GASTROINTESTINAL: Abdomen soft, non-tender, nondistended. Normal active bowel sounds MUSCULOSKELETAL: Bilateral feet bandage clean dry intact, wound VAC in place NEURO: Alert and oriented to person place and time. Moves all ext x4 SKIN: Erythematous plaque in the back trunk Results - Labs CBC & Chem 7: 05/12/18 05:26 05/14/18 07:04 Laboratory Results - last 24 hr 05/14/18 05/14/18 07:04 11:45 Creatinine 0.91 Estimated GFR 85 L Vancomycin Trough 42.7 H Microbiology 05/13/18 15:44 Wound - Foot Gram Stain - Final 05/13/18 15:44 Wound - Foot Wound Culture - Preliminary No growth in 24 hours 05/10/18 22:50 Blood - Peripheral Aerobic Blood Culture - Preliminary No growth in 4 days 05/10/18 22:50 Blood - Peripheral Anaerobic Blood Culture - Preliminary No growth in 4 days 05/10/18 22:45 Blood - Peripheral Aerobic Blood Culture - Preliminary No growth in 4 days 05/10/18 22:45 Blood - Peripheral Anaerobic Blood Culture - Preliminary No growth in 4 days 05/13/18 15:44 Wound - Foot Fungal Smear - Final No fungal elements seen 05/11/18 18:18 Wound - Foot Fungal Smear - Final No fungal elements seen 05/10/18 22:50 Wound - Foot Gram Stain - Final 05/10/18 22:50 Wound - Foot Wound Culture - Final S. aureus MRSA Enterobacter cloacae Group A beta (Strep pyogenes) Haemophilus parainfluenzae 05/11/18 18:18 Wound - Foot Acid Fast Bacilli Smear - Final No acid fast bacilli seen 05/11/18 18:18 Wound - Foot Gram Stain - Final 05/11/18 18:18 Wound - Foot Wound Culture - Final S. aureus MRSA Group A beta (Strep pyogenes) 05/11/18 03:40 Clean Catch Urine Urine Culture - Final No growth in 48 hours - Imaging Impressions Foot X-Ray 05/13/18 00:00 CONCLUSION: Postoperative deformity of the right forefoot following second and third toe amputations. - Procedures 05/10 I&D dorsal and plantar surface right foot with Dr. John Date of procedure: 05/13/18 Pre-op diagnosis: Right foot infection, second third metatarsal OM, Left foot ulcer Post-op diagnosis: same Procedure: Right foot debridement and irrigation with second, third metatarsal head resection Left foot ulcer debridement Anesthesia: DICK Surgeon: Nallely Gabriel Assessment and Plan - Assessment (1) Hypertension Code(s): I10 - Essential (primary) hypertension Status: Chronic - Plan Assessment/plan: 1. Sepsis with Right foot infection abscess status post right I&D dorsal and plantar surface on 05/10 Continue postoperative care and wound care per Dr. Lopez. Status post operative day #1 (05/13) Right foot debridement and irrigation with second, third metatarsal head resection Left foot ulcer debridement with VAC placement with Dr. Nallely Gabriel MRI results reviewed Blood/wound cultures shows MRSA, group B strep and Enterbacter cloacae. Follow- up with final cultures and sensitivity. Continue with IV vancomycin/Zosyn 2. Hypertension, chronic essential Continue home lisinopril IV Vasotec as needed. 3. Hypokalemia Replete 4. Possible contact dermatitis of the backClaritin and 1% hydrocortisone cream 5. DVT prophylaxisaspirin (1) Hypertension Qualifiers: Hypertension type: essential hypertension Qualified Code(s): I10 - Essential (primary) hypertension
[2018-05-14] MEDS: Loratadine 10 MG Tablet PO SCH (15:19)
[2018-05-14] MEDS: Aspirin 325 MG Tablet PO SCH (15:19)
[2018-05-14] MEDS: Hydrocortisone 1% Lotion 120 ML Bottle TOPICAL SCH ×2 (15:20→21:33)
--- NOTE | 2018-05-14 19:24 | P.PNPOD ---
Subjective Interval history: Patient seen bedside. Resting comfortably. Denies any nausea vomiting fevers or chills. Diabetes C he did not lose his second toe as of yet. Physical Exam Vital signs: Vital Signs 05/13/18 20:00 05/14/18 00:00 05/14/18 04:00 Temperature 100.0 F H 99.7 F H 99.7 F H Pulse Rate 77 82 83 Respiratory Rate 18 16 18 Blood Pressure 128/72 124/59 L 138/67 Pulse Oximetry 95 93 L 93 L 05/14/18 08:00 05/14/18 12:00 05/14/18 16:00 Temperature 97.6 F 98.9 F 97.8 F Pulse Rate 76 80 87 Respiratory Rate 20 20 20 Blood Pressure 144/76 H 151/76 H 161/79 H Pulse Oximetry 92 L 92 L 90 L Intake & Output 05/14/18 05/14/18 05/15/18 06:59 18:59 06:59 Intake Total 3525 / 3525 2713 / 2713 Output Total 550 / 550 1175 / 1175 Balance 2975 / 2975 1538 / 1538 Weight 121.9 kg Intake: IV 3165 / 3165 1615 / 1615 NS Inj 1,000 ML @ 125 mls/hr IV 1999 / 1999 1000 / 1000 .CONT .Q8H [facility] Rx#:[id number] Zosyn 3.375 GM Premix 50 ML @ 100 / 100 100 / 100 100 mls/hr IV.SIG Q6H [facility] Rx#: [id number] Vancomycin Inj 1,500 MG In NS 1065 / 1065 515 / 515 Inj 500 ML @ 265 mls/hr IV.SIG Q8H [facility] Rx#:[id number] Oral 360 / 360 1098 / 1098 Output: Urine 550 / 550 1175 / 1175 Other: Mode Setting Left Foot Continuous Right Foot Continuous Continuous Date of Last Bowel Movement 05/12/18 # Bowel Movements 0 Narrative: Dressing intact to left lower extremity with no strikethrough present. Wound VAC functioning at 125 mm per mercury to right foot with dressing intact to right lower extremity. Medications and Allergies Active Medications: Active Medications Acetaminophen (Tylenol) 650 mg PO Q4H PRN PRN Reason: FEVER > 100.4 F Last Admin: 05/12/18 21:24 Dose: 650 mg Al Hydroxide/Mg Hydroxide (Milk Of Magnesia Liq) 30 ml PO Q12H PRN PRN Reason: Mild Constipation Aspirin (Aspirin) 325 mg PO DAILY [facility] Last Admin: 05/14/18 15:19 Dose: 325 mg Bisacodyl (Dulcolax Supp) 10 mg RECTAL DAILY PRN PRN Reason: SEVERE CONSITIPATION Enalaprilat (Vasotec Inj) 1.25 mg IV.PUSH Q6H PRN PRN Reason: SEE LABEL COMMENTS Last Admin: 05/12/18 18:31 Dose: 1.25 mg Hydrocortisone Acetate (Hydrocortisone 1% Lotion) 1 applicatio TOPICAL BID [facility] Last Admin: 05/14/18 15:20 Dose: 1 applicatio Sodium Chloride (Ns Inj) 1,000 mls @ 125 mls/hr IV.CONT .Q8H [facility] Last Admin: 05/14/18 12:20 Dose: 125 mls/hr Pharmacy Profile Note (Vancomycin Consult Pharmacy) 0 mls @ 0 mls/hr OTHER UNSCH [facility] Piperacillin/Tazobactam/Dextrose (Zosyn 3.375 Gm Premix) 50 mls @ 100 mls/hr IV.SIG Q6H [facility] Last Infusion: 05/14/18 17:31 Dose: Infused Vancomycin HCl 2,000 mg/ (Sodium Chloride) 520 mls @ 265 mls/hr IV.SIG Q12H [facility] Lactulose (Lactulose Liq) 30 ml PO DAILY PRN PRN Reason: SEVERE CONSITIPATION Lisinopril (Prinivil) 10 mg PO BID [facility] Last Admin: 05/14/18 08:44 Dose: 10 mg Loratadine (Claritin) 10 mg PO DAILY [facility] Stop: 05/21/18 14:29 Last Admin: 05/14/18 15:19 Dose: 10 mg Miscellaneous Information ([facility] Ordered Lab Info) 0 each OTHER ONCE ONE Stop: 05/16/18 11:46 Ondansetron HCl (Zofran Inj) 4 mg IV.PUSH Q6H PRN PRN Reason: NAUSEA OR VOMITING Oxycodone/Acetaminophen (Percocet 5/325 Mg) 1 tab PO Q6H PRN PRN Reason: PAIN SCALE 1 TO 10 Last Admin: 05/14/18 18:39 Dose: 1 tab Senna/Docusate Sodium (Aubree-Colace) 1 tab PO BID [facility] Last Admin: 05/14/18 08:44 Dose: 1 tab Sennosides (Senokot) 17.2 mg PO Q12H PRN PRN Reason: Moderate Constipation Sodium Chloride (Ns Flush) 2 ml IV.FLUSH BID [facility] Last Admin: 05/14/18 08:44 Dose: Not Given Sodium Chloride (Ns Flush) 2 ml IV.FLUSH PRN PRN PRN Reason: FLUSH AFTER USING IV ACCESS Temazepam (Restoril) 15 mg PO HS PRN PRN Reason: INSOMNIA Last Admin: 05/14/18 00:01 Dose: 15 mg Allergies Allergy/AdvReac Type Severity Reaction Status Date / Time No Known Allergies Allergy Verified 05/11/18 06:14 Home Medications Medication Instructions Recorded Confirmed Type lisinopril 10 mg PO BID 05/11/18 05/11/18 History Results - Labs CBC & Chem 7: 05/12/18 05:26 05/14/18 07:04 Laboratory Results - last 24 hr 05/14/18 05/14/18 07:04 11:45 Creatinine 0.91 Estimated GFR 85 L Vancomycin Trough 42.7 H Microbiology 05/13/18 15:44 Wound - Foot Acid Fast Bacilli Smear - Final No acid fast bacilli seen 05/13/18 15:44 Wound - Foot Gram Stain - Final 05/13/18 15:44 Wound - Foot Wound Culture - Preliminary No growth in 24 hours 05/10/18 22:50 Blood - Peripheral Aerobic Blood Culture - Preliminary No growth in 4 days 05/10/18 22:50 Blood - Peripheral Anaerobic Blood Culture - Preliminary No growth in 4 days 05/10/18 22:45 Blood - Peripheral Aerobic Blood Culture - Preliminary No growth in 4 days 05/10/18 22:45 Blood - Peripheral Anaerobic Blood Culture - Preliminary No growth in 4 days 05/13/18 15:44 Wound - Foot Fungal Smear - Final No fungal elements seen 05/11/18 18:18 Wound - Foot Fungal Smear - Final No fungal elements seen - Procedures 05/10 I&D dorsal and plantar surface right foot with Dr. Lopez Date of procedure: 05/13/18 Pre-op diagnosis: Right foot infection, second third metatarsal OM, Left foot ulcer Post-op diagnosis: same Procedure: Right foot debridement and irrigation with second, third metatarsal head resection Left foot ulcer debridement Anesthesia: GETA Surgeon: Nallely Gabriel Assessment and Plan - Assessment (1) Ulcer of left foot Code(s): L97.529 - Non-pressure chronic ulcer of other part of left foot with unspecified severity Status: Acute (2) Abscess of right foot Code(s): L02.611 - Cutaneous abscess of right foot Status: Acute - Plan 57-year-old male status post Incision drainage debridement right foot Patient examined and evaluated with all questions answered Will await OR cultures and pathology We will evaluate wound on Thursday and determine whether or not any additional surgical intervention is warranted Continue with wound VAC to right lower extremity set at 125 mm per mercury Dressing to bilateral foot to stay clean dry and intact
[2018-05-14] MEDS: Vancomycin Inj 2,000 MG in Sodium Chlor 0.9% Inj 500 ML IV.SIG SCH (23:27)
[2018-05-15] MEDS: Piperacil/Tazo 3.375 GM Premix 50 ML IV.SIG SCH ×4 (04:31→22:17)
[2018-05-15] MEDS: Sod Chloride 0.9% Inj 1,000 ML IV.CONT SCH ×4 (06:01→20:45)
--- NOTE | 2018-05-15 09:16 | P.PNIM ---
Subjective Interval history: Doing okay. No complaints of pain. Reports back rash and itchiness has improved since starting medication and lotion. Physical Exam Vital signs: Vital Signs 05/14/18 12:00 05/14/18 16:00 05/14/18 20:00 Temperature 98.9 F 97.8 F 99.1 F Pulse Rate 80 87 81 Respiratory Rate 20 20 18 Blood Pressure 151/76 H 161/79 H 155/77 H Pulse Oximetry 92 L 90 L 92 L 05/14/18 20:48 05/15/18 00:00 05/15/18 04:00 Temperature 99 F 98.8 F Pulse Rate 84 82 Respiratory Rate 18 18 Blood Pressure 168/89 H 163/80 H Pulse Oximetry 92 L 93 L 92 L Intake & Output 05/14/18 05/15/18 05/15/18 18:59 06:59 18:59 Intake Total 2713 / 2713 2530 / 2530 Output Total 1175 / 1175 800 / 800 Balance 1538 / 1538 1730 / 1730 Weight 120.6 kg Intake: IV 1615 / 1615 1570 / 1570 NS Inj 1,000 ML @ 125 mls/hr IV 1000 / 1000 1000 / 1000 .CONT .Q8H [facility] Rx#:[id number] Zosyn 3.375 GM Premix 50 ML @ 100 / 100 50 / 50 100 mls/hr IV.SIG Q6H [facility] Rx#: [id number] Vancomycin Inj 2,000 MG In NS 515 / 515 520 / 520 Inj 500 ML @ 265 mls/hr IV.SIG Q12H [facility] Rx#:[id number] Oral 1098 / 1098 960 / 960 Output: Urine 1175 / 1175 800 / 800 Other: Mode Setting Left Foot Continuous Continuous Right Foot Continuous Continuous Date of Last Bowel Movement 05/12/18 # Bowel Movements 0 Narrative: GENERAL: This is a well-nourished, well-developed patient, in no apparent distress. CARDIOVASCULAR: Regular rate and rhythm RESPIRATORY: Clear to auscultation. Breath sounds equal bilaterally. No wheezes , rales, or rhonchi. GASTROINTESTINAL: Abdomen soft, non-tender, nondistended. Normal active bowel sounds MUSCULOSKELETAL: Bilateral feet bandage clean dry intact, wound VAC in place NEURO: Alert and oriented to person place and time. Moves all ext x4 SKIN: Erythematous plaque in the back trunk resolving and improving Results - Labs CBC & Chem 7: 05/12/18 05:26 05/14/18 07:04 Laboratory Results - last 24 hr 05/14/18 11:45 Vancomycin Trough 42.7 H Microbiology 05/13/18 15:44 Wound - Foot Acid Fast Bacilli Smear - Final No acid fast bacilli seen 05/13/18 15:44 Wound - Foot Gram Stain - Final 05/13/18 15:44 Wound - Foot Wound Culture - Preliminary No growth in 24 hours 05/10/18 22:50 Blood - Peripheral Aerobic Blood Culture - Preliminary No growth in 4 days 05/10/18 22:50 Blood - Peripheral Anaerobic Blood Culture - Preliminary No growth in 4 days 05/10/18 22:45 Blood - Peripheral Aerobic Blood Culture - Preliminary No growth in 4 days 05/10/18 22:45 Blood - Peripheral Anaerobic Blood Culture - Preliminary No growth in 4 days 05/13/18 15:44 Wound - Foot Fungal Smear - Final No fungal elements seen - Procedures 05/10 I&D dorsal and plantar surface right foot with Dr. Lopez Date of procedure: 05/13/18 Pre-op diagnosis: Right foot infection, second third metatarsal OM, Left foot ulcer Post-op diagnosis: same Procedure: Right foot debridement and irrigation with second, third metatarsal head resection Left foot ulcer debridement Anesthesia: DICK Surgeon: Nallely Gabriel Assessment and Plan - Assessment (1) Hypertension Code(s): I10 - Essential (primary) hypertension Status: Chronic - Plan Assessment/plan: 1. Sepsis with Right foot infection abscess status post right I&D dorsal and plantar surface on 05/[address] Lopez Continue postoperative care and wound care per Podiatry Status post operative day #2 (05/13) Right foot debridement and irrigation with second, third metatarsal head resection Left foot ulcer debridement with VAC placement with Dr. Nallely Gabriel Per podiatry will reevaluate wound on Thursday to determine if patient will need further debridement MRI results reviewed Blood/wound cultures shows MRSA, group B strep and Enterbacter cloacae. Follow- up with final cultures and sensitivity. Continue with IV vancomycin/Zosyn 2. Hypertension, chronic essential, not optimally controlled Continue home lisinopril and will increase dosing IV Vasotec as needed. 3. Hypokalemia Replete 4. Possible contact dermatitis of the back, improvingClaritin and 1% hydrocortisone cream 5. DVT prophylaxisaspirin (1) Hypertension Qualifiers: Hypertension type: essential hypertension Qualified Code(s): I10 - Essential (primary) hypertension
[2018-05-15] MEDS ORDERED: Lisinopril 10 MG Tablet PO PRN (09:27)
[2018-05-15] MEDS: Aspirin 325 MG Tablet PO SCH (09:52)
[2018-05-15] MEDS: Loratadine 10 MG Tablet PO SCH (09:52)
[2018-05-15] MEDS: Hydrocortisone 1% Lotion 120 ML Bottle TOPICAL SCH ×2 (09:52→20:44)
[2018-05-15] MEDS: Lisinopril 20 MG Tablet PO SCH ×2 (09:52→20:43)
[2018-05-15] MEDS: Senna/Docusate Sodium 8.6/50 MG Tablet PO SCH ×2 (09:52→20:43)
[2018-05-15] MEDS: Vancomycin Inj 2,000 MG in Sodium Chlor 0.9% Inj 500 ML IV.SIG SCH ×2 (13:11→23:15)
[2018-05-15] MEDS ORDERED: Lisinopril 20 MG Tablet PO SCH (21:00)
[2018-05-15] MEDS: Temazepam 15 MG Capsule PO PRN (23:30)
[2018-05-16] MEDS: Acetaminophen 325 MG Tablet PO PRN ×2 (00:03→20:54)
[2018-05-16] MEDS: Piperacil/Tazo 3.375 GM Premix 50 ML IV.SIG SCH ×4 (04:14→23:16)
[2018-05-16] MEDS: Hydrocortisone 1% Lotion 120 ML Bottle TOPICAL SCH ×2 (08:21→20:52)
[2018-05-16] MEDS: Aspirin 325 MG Tablet PO SCH (08:21)
[2018-05-16] MEDS: Lisinopril 20 MG Tablet PO SCH ×2 (08:21→20:50)
[2018-05-16] MEDS: Senna/Docusate Sodium 8.6/50 MG Tablet PO SCH ×2 (08:21→20:51)
[2018-05-16] MEDS: Loratadine 10 MG Tablet PO SCH (08:21)
--- NOTE | 2018-05-16 09:01 | P.PNIM ---
Subjective Interval history: Overall pain control. Would like to switch beds as there is no foot board and his bed mattress shifts during the night. He is having a hard time elevating his right foot based on the mattress shifting. Physical Exam Vital signs: Vital Signs 05/15/18 12:00 05/15/18 16:00 05/15/18 22:00 Temperature 99.2 F 98.2 F 100 F H Pulse Rate 84 72 83 Respiratory Rate 16 20 20 Blood Pressure 175/86 H 176/94 H 182/88 H Pulse Oximetry 92 L 92 L 93 L 05/16/18 00:00 05/16/18 04:00 Temperature 100.7 F H 98.4 F Pulse Rate 91 H 79 Respiratory Rate 18 18 Blood Pressure 185/88 H Pulse Oximetry 92 L 86 L Intake & Output 05/15/18 05/16/18 05/16/18 18:59 06:59 18:59 Intake Total 3420 / 3420 2050 / 2050 Output Total 2800 / 2800 1200 / 1200 Balance 620 / 620 850 / 850 Weight 120.9 kg Intake: IV 1620 / 1620 1050 / 1050 NS Inj 1,000 ML @ 125 mls/hr IV 1000 / 1000 1000 / 1000 .CONT .Q8H [facility] Rx#:[id number] Zosyn 3.375 GM Premix 50 ML @ 100 / 100 50 / 50 100 mls/hr IV.SIG Q6H [facility] Rx#: [id number] Vancomycin Inj 2,000 MG In NS 520 / 520 Inj 500 ML @ 265 mls/hr IV.SIG Q12H [facility] Rx#:[id number] Oral 1800 / 1800 1000 / 1000 Output: Urine 2800 / 2800 1200 / 1200 Other: Mode Setting Left Foot Continuous Continuous Right Foot Continuous Continuous Date of Last Bowel Movement 05/12/18 05/12/18 # Bowel Movements 0 Narrative: GENERAL: This is a well-nourished, well-developed patient, in no apparent distress. CARDIOVASCULAR: Regular rate and rhythm RESPIRATORY: Clear to auscultation. Breath sounds equal bilaterally. No wheezes , rales, or rhonchi. GASTROINTESTINAL: Abdomen soft, non-tender, nondistended. Normal active bowel sounds MUSCULOSKELETAL: Bilateral feet bandage clean dry intact, wound VAC in place NEURO: Alert and oriented to person place and time. Moves all ext x4 SKIN: Erythematous plaque in the back trunk resolving and improving Results - Labs CBC & Chem 7: 05/12/18 05:26 05/16/18 05:59 Laboratory Results - last 24 hr 05/16/18 05:59 Creatinine 0.95 Estimated GFR 81 L Microbiology 05/13/18 15:44 Wound - Foot Gram Stain - Final 05/13/18 15:44 Wound - Foot Wound Culture - Final No growth in 72 hours (aerobically and anaerobically ) 05/10/18 22:50 Blood - Peripheral Aerobic Blood Culture - Final No growth in 5 days 05/10/18 22:50 Blood - Peripheral Anaerobic Blood Culture - Final No growth in 5 days 05/10/18 22:45 Blood - Peripheral Aerobic Blood Culture - Final No growth in 5 days 05/10/18 22:45 Blood - Peripheral Anaerobic Blood Culture - Final No growth in 5 days - Procedures 05/10 I&D dorsal and plantar surface right foot with Dr. Lopez Date of procedure: 05/13/18 Pre-op diagnosis: Right foot infection, second third metatarsal OM, Left foot ulcer Post-op diagnosis: same Procedure: Right foot debridement and irrigation with second, third metatarsal head resection Left foot ulcer debridement Anesthesia: DICK Surgeon: Nallely Gabriel Assessment and Plan - Assessment (1) Hypertension Code(s): I10 - Essential (primary) hypertension Status: Chronic - Plan Assessment/plan: 1. Sepsis with Right foot infection abscess status post right I&D dorsal and plantar surface on 05/[address] Lopez Continue postoperative care and wound care per Podiatry Status post operative day #3 (05/13) Right foot debridement and irrigation with second, third metatarsal head resection Left foot ulcer debridement with VAC placement with Dr. Nallely Gabriel Per podiatry will reevaluate wound today to determine if patient will need further surgical debridement MRI results reviewed Blood/wound cultures shows MRSA, group A beta strep and Enterbacter cloacae. Continue with IV vancomycin/Zosyn Consideration of switching to p.o. Levaquin with discharge planning. 2. Hypertension, chronic essential, not optimally controlled Continue home lisinopril and will increase dosing to 20 mg p.o. twice daily IV Vasotec as needed. We will also add amlodipine 5 mg p.o. daily. 3. Hypokalemia Replete 4. Possible contact dermatitis of the back, improvingClaritin and 1% hydrocortisone cream 5. DVT prophylaxisaspirin Discharge Planning: Home with home health care when cleared by podiatry. (1) Hypertension Qualifiers: Hypertension type: essential hypertension Qualified Code(s): I10 - Essential (primary) hypertension
--- NOTE | 2018-05-16 10:21 | P.PNPOD ---
Subjective Interval history: Patient seen bedside. Denies any nausea vomiting fevers or chills. States he has been staying off bilateral foot. Physical Exam Vital signs: Vital Signs 05/15/18 12:00 05/15/18 16:00 05/15/18 22:00 Temperature 99.2 F 98.2 F 100 F H Pulse Rate 84 72 83 Respiratory Rate 16 20 20 Blood Pressure 175/86 H 176/94 H 182/88 H Pulse Oximetry 92 L 92 L 93 L 05/16/18 00:00 05/16/18 04:00 05/16/18 08:00 Temperature 100.7 F H 98.4 F 98.6 F Pulse Rate 91 H 79 91 H Respiratory Rate 18 18 18 Blood Pressure 185/88 H 180/86 H Pulse Oximetry 92 L 86 L 95 Intake & Output 05/15/18 05/16/18 05/16/18 18:59 06:59 18:59 Intake Total 3420 / 3420 2050 / 2050 Output Total 2800 / 2800 1200 / 1200 Balance 620 / 620 850 / 850 Weight 120.9 kg Intake: IV 1620 / 1620 1050 / 1050 NS Inj 1,000 ML @ 125 mls/hr IV 1000 / 1000 1000 / 1000 .CONT .Q8H [facility] Rx#:[id number] Zosyn 3.375 GM Premix 50 ML @ 100 / 100 50 / 50 100 mls/hr IV.SIG Q6H [facility] Rx#: [id number] Vancomycin Inj 2,000 MG In NS 520 / 520 Inj 500 ML @ 265 mls/hr IV.SIG Q12H [facility] Rx#:[id number] Oral 1800 / 1800 1000 / 1000 Output: Urine 2800 / 2800 1200 / 1200 Other: Mode Setting Left Foot Continuous Continuous Right Foot Continuous Continuous Date of Last Bowel Movement 05/12/18 05/12/18 # Bowel Movements 0 Narrative: Wound VAC functioning at 125 mmHg to right foot. Decreased erythema and edema noted to right foot. Left submetatarsal 1 ulceration noted with granular base no hyperkeratotic borders no surrounding erythema or edema, no clinical signs of infection. Medications and Allergies Active Medications: Active Medications Acetaminophen (Tylenol) 650 mg PO Q4H PRN PRN Reason: FEVER > 100.4 F Last Admin: 05/16/18 00:03 Dose: 650 mg Al Hydroxide/Mg Hydroxide (Milk Of Magnesia Liq) 30 ml PO Q12H PRN PRN Reason: Mild Constipation Amlodipine Besylate (Norvasc) 5 mg PO DAILY [facility] Aspirin (Aspirin) 325 mg PO DAILY [facility] Last Admin: 05/16/18 08:21 Dose: 325 mg Bisacodyl (Dulcolax Supp) 10 mg RECTAL DAILY PRN PRN Reason: SEVERE CONSITIPATION Enalaprilat (Vasotec Inj) 1.25 mg IV.PUSH Q6H PRN PRN Reason: SEE LABEL COMMENTS Last Admin: 05/12/18 18:31 Dose: 1.25 mg Hydrocortisone Acetate (Hydrocortisone 1% Lotion) 1 applicatio TOPICAL BID [facility] Last Admin: 05/16/18 08:21 Dose: 1 applicatio Sodium Chloride (Ns Inj) 1,000 mls @ 125 mls/hr IV.CONT .Q8H [facility] Last Admin: 05/15/18 20:45 Dose: 125 mls/hr Pharmacy Profile Note (Vancomycin Consult Pharmacy) 0 mls @ 0 mls/hr OTHER UNSCH [facility] Piperacillin/Tazobactam/Dextrose (Zosyn 3.375 Gm Premix) 50 mls @ 100 mls/hr IV.SIG Q6H [facility] Last Admin: 05/16/18 04:14 Dose: 100 mls/hr Vancomycin HCl 2,000 mg/ (Sodium Chloride) 520 mls @ 265 mls/hr IV.SIG Q12H [facility] Last Admin: 05/15/18 23:15 Dose: 250 mls/hr Lactulose (Lactulose Liq) 30 ml PO DAILY PRN PRN Reason: SEVERE CONSITIPATION Lisinopril (Prinivil) 20 mg PO BID [facility] Last Admin: 05/16/18 08:21 Dose: 20 mg Loratadine (Claritin) 10 mg PO DAILY [facility] Stop: 05/21/18 14:29 Last Admin: 05/16/18 08:21 Dose: 10 mg Miscellaneous Information ([facility] Ordered Lab Info) 0 each OTHER ONCE ONE Stop: 05/16/18 11:46 Ondansetron HCl (Zofran Inj) 4 mg IV.PUSH Q6H PRN PRN Reason: NAUSEA OR VOMITING Oxycodone/Acetaminophen (Percocet 5/325 Mg) 1 tab PO Q6H PRN PRN Reason: PAIN SCALE 1 TO 10 Last Admin: 05/15/18 12:08 Dose: 1 tab Senna/Docusate Sodium (Aubree-Colace) 1 tab PO BID [facility] Last Admin: 05/16/18 08:21 Dose: 1 tab Sennosides (Senokot) 17.2 mg PO Q12H PRN PRN Reason: Moderate Constipation Sodium Chloride (Ns Flush) 2 ml IV.FLUSH BID [facility] Last Admin: 05/15/18 20:43 Dose: 2 ml Sodium Chloride (Ns Flush) 2 ml IV.FLUSH PRN PRN PRN Reason: FLUSH AFTER USING IV ACCESS Temazepam (Restoril) 15 mg PO HS PRN PRN Reason: INSOMNIA Last Admin: 05/15/18 23:30 Dose: 15 mg Allergies Allergy/AdvReac Type Severity Reaction Status Date / Time No Known Allergies Allergy Verified 05/11/18 06:14 Home Medications Medication Instructions Recorded Confirmed Type lisinopril 10 mg PO BID 05/11/18 05/11/18 History Results - Labs CBC & Chem 7: 05/12/18 05:26 05/16/18 05:59 Laboratory Results - last 24 hr 05/16/18 05:59 Creatinine 0.95 Estimated GFR 81 L Microbiology 05/13/18 15:44 Wound - Foot Gram Stain - Final 05/13/18 15:44 Wound - Foot Wound Culture - Final No growth in 72 hours (aerobically and anaerobically ) 05/10/18 22:50 Blood - Peripheral Aerobic Blood Culture - Final No growth in 5 days 05/10/18 22:50 Blood - Peripheral Anaerobic Blood Culture - Final No growth in 5 days 05/10/18 22:45 Blood - Peripheral Aerobic Blood Culture - Final No growth in 5 days 05/10/18 22:45 Blood - Peripheral Anaerobic Blood Culture - Final No growth in 5 days - Procedures 05/10 I&D dorsal and plantar surface right foot with Dr. Lopez Date of procedure: 05/13/18 Pre-op diagnosis: Right foot infection, second third metatarsal OM, Left foot ulcer Post-op diagnosis: same Procedure: Right foot debridement and irrigation with second, third metatarsal head resection Left foot ulcer debridement Anesthesia: GETA Surgeon: Nallely Gabriel Assessment and Plan - Assessment (1) Ulcer of left foot Code(s): L97.529 - Non-pressure chronic ulcer of other part of left foot with unspecified severity Status: Acute (2) Abscess of right foot Code(s): L02.611 - Cutaneous abscess of right foot Status: Acute - Plan 57-year-old male status post Incision drainage debridement right foot Patient examined and evaluated with all questions answered Will await OR cultures and pathology Based on degree of patient's right foot infection IV antibiotics most likely warranted however will await final pathology report Wound care nurses to change right foot wound VAC tomorrow Daily dressing changes for left foot Dr. Gillespie to evaluate for any further surgical intervention, possible graft placement Patient will need wound VAC at home however due to patient's nonweightbearing status I do feel he would do better in a rehab facility Continue with wound VAC to right lower extremity set at 125 mm per mercury
[2018-05-16] MEDS ORDERED: Pharmacy Ordered Lab Info OTHER ONE (11:45)
[2018-05-16] MEDS: Sod Chloride 0.9% Inj 1,000 ML IV.CONT SCH ×3 (12:03→21:42)
[2018-05-16] MEDS: amLODIPine 5 MG Tablet PO SCH (12:31)
--- NOTE | 2018-05-16 23:04 | P.CONID ---
History of Present Illness Service: ID Consult date: 05/16/18 Requesting Physician: Nallely Gabriel Reason for Consult: osteomyelitis Primary Care Provider: No Primary Care Physician Family Provider: No Primary Care Physician Chief Complaint: fever, r foot infection History of Present Illness: 57 yo male with long standing feet neuropathy presented with swollen, red pasinful foot for 1 week aw fevers, chills + fevers up to 102.8 + leukocytosis up to 31 K MRI showed abscess no osteo sp Incision and drainage deep debridement, dorsal and plantar surface of the R foot and VAC placewment by Dr Lopez.\Clx positive for MRSA, GAS, ENterobacter , Haemophylus no anaerobs On broadf spectrum abx (zosyn, vanco) fever leukocytosis improving Review of Systems All other systems reviewed negative except as stated in HPI PMFSH - History History Provided By: Patient - Medical History Medical History: Medical History (Last Reviewed 07/13/18 @ 11:10 by Adelita Au MD) Amputated toe Amputated toe of right foot GI bleed HTN (hypertension) Hx of drug abuse Neuropathy Ulcer - Family History Family History: Family History (Last Reviewed 07/13/18 @ 11:10 by Adelita Au MD) Other No family history of cardiac disease - Social History I have reviewed the patient's Social History: Yes - Tobacco History Second Hand Smoke Exposure: No Smoking Status: Never smoker - Alcohol History How Often Do You Have a Drink Containing Alcohol: 2 to 4 times a month - Substance Use History Substance History: Active Abuse - Substance Use Type Methamphetamine Status: Active Route Used: Inhalation Reason for Use: Socialization Crack/Cocaine Status: Sustained Remission Route Used: Inhalation Reason for Use: Socialization Comment: Pt states former user - Travel History Recent Travel in the [place] Within the Last 8 Weeks: No Recent Travel Out of the Country Within the Last 8 Weeks: No - Immunization History Tetanus Immunization: Unsure Hx Influenza Vaccine This Season: Yes Medications and Allergies Active Medications: Active Medications Acetaminophen (Tylenol) 650 mg PO Q4H PRN PRN Reason: FEVER > 100.4 F Last Admin: 05/16/18 20:54 Dose: 650 mg Al Hydroxide/Mg Hydroxide (Milk Of Magnesia Liq) 30 ml PO Q12H PRN PRN Reason: Mild Constipation Amlodipine Besylate (Norvasc) 5 mg PO DAILY [facility] Last Admin: 05/16/18 12:31 Dose: 5 mg Aspirin (Aspirin) 325 mg PO DAILY [facility] Last Admin: 05/16/18 08:21 Dose: 325 mg Bisacodyl (Dulcolax Supp) 10 mg RECTAL DAILY PRN PRN Reason: SEVERE CONSITIPATION Enalaprilat (Vasotec Inj) 1.25 mg IV.PUSH Q6H PRN PRN Reason: SEE LABEL COMMENTS Last Admin: 05/16/18 17:56 Dose: 1.25 mg Hydrocortisone Acetate (Hydrocortisone 1% Lotion) 1 applicatio TOPICAL BID [facility] Last Admin: 05/16/18 20:52 Dose: 1 applicatio Sodium Chloride (Ns Inj) 1,000 mls @ 125 mls/hr IV.CONT .Q8H [facility] Last Admin: 05/16/18 21:42 Dose: Not Given Pharmacy Profile Note (Vancomycin Consult Pharmacy) 0 mls @ 0 mls/hr OTHER UNSCH [facility] Piperacillin/Tazobactam/Dextrose (Zosyn 3.375 Gm Premix) 50 mls @ 100 mls/hr IV.SIG Q6H [facility] Last Admin: 05/16/18 12:02 Dose: 100 mls/hr Vancomycin HCl 1,750 mg/ (Sodium Chloride) 517.5 mls @ 265 mls/hr IV.SIG Q12H [facility] Lactulose (Lactulose Liq) 30 ml PO DAILY PRN PRN Reason: SEVERE CONSITIPATION Lisinopril (Prinivil) 20 mg PO BID [facility] Last Admin: 05/16/18 20:50 Dose: 20 mg Loratadine (Claritin) 10 mg PO DAILY [facility] Stop: 05/21/18 14:29 Last Admin: 05/16/18 08:21 Dose: 10 mg Miscellaneous Information ([facility] Ordered Lab Info) 0 each OTHER ONCE ONE Stop: 05/18/18 05:46 Ondansetron HCl (Zofran Inj) 4 mg IV.PUSH Q6H PRN PRN Reason: NAUSEA OR VOMITING Oxycodone/Acetaminophen (Percocet 5/325 Mg) 1 tab PO Q6H PRN PRN Reason: PAIN SCALE 1 TO 10 Last Admin: 05/16/18 12:40 Dose: 1 tab Senna/Docusate Sodium (Aubree-Colace) 1 tab PO BID [facility] Last Admin: 05/16/18 20:51 Dose: Not Given Sennosides (Senokot) 17.2 mg PO Q12H PRN PRN Reason: Moderate Constipation Sodium Chloride (Ns Flush) 2 ml IV.FLUSH BID [facility] Last Admin: 05/16/18 20:51 Dose: 2 ml Sodium Chloride (Ns Flush) 2 ml IV.FLUSH PRN PRN PRN Reason: FLUSH AFTER USING IV ACCESS Temazepam (Restoril) 15 mg PO HS PRN PRN Reason: INSOMNIA Last Admin: 05/15/18 23:30 Dose: 15 mg Allergies Allergy/AdvReac Type Severity Reaction Status Date / Time No Known Allergies Allergy Verified 06/23/18 10:33 Exam Vital signs: Vital Signs 05/16/18 00:00 05/16/18 04:00 05/16/18 08:00 Temperature 100.7 F H 98.4 F 98.6 F Pulse Rate 91 H 79 91 H Respiratory Rate 18 18 18 Blood Pressure 185/88 H 180/86 H Pulse Oximetry 92 L 86 L 95 05/16/18 12:00 05/16/18 16:00 Temperature 98.0 F 99.2 F Pulse Rate 74 85 Respiratory Rate 18 18 Blood Pressure 184/94 H 174/102 H Pulse Oximetry 93 L 94 L Intake & Output 05/16/18 05/16/18 05/17/18 06:59 18:59 06:59 Intake Total 3100 / 3100 420 / 420 1000 / 1000 Output Total 1200 / 1200 2400 / 2400 Balance 1900 / 1900 -1979 / -1979 1000 / 1000 Weight 120.9 kg Intake: IV 2100 / 2100 1000 / 1000 NS Inj 1,000 ML @ 125 mls/hr IV 2000 / 2000 1000 / 1000 .CONT .Q8H [facility] Rx#:[id number] Zosyn 3.375 GM Premix 50 ML @ 100 / 100 100 mls/hr IV.SIG Q6H [facility] Rx#: [id number] Oral 1000 / 1000 420 / 420 Output: Urine 1200 / 1200 2400 / 2400 Other: Mode Setting Left Foot Continuous Continuous Right Foot Continuous Continuous Date of Last Bowel Movement 05/12/18 05/12/18 # Bowel Movements 1 - Constitutional no acute distress, obese - Routine HEENT Exam Head: Present: normocephalic, atraumatic Eye: Present: EOMI, PERRL ENT: Present: mucous membranes moist, oropharynx clear - Routine Neck Exam Present: supple, full ROM - Routine Respiratory Exam Present: decreased breath sounds, CTA bilaterally - Routine Cardiovascular Exam Present: RRR, S1, S2 Comments: well perfused perifery - Routine Abdominal Exam Present: soft, normoactive bowel sounds Comments: no organomegaly no masses - Routine Extremities Exam Comments: no cyanosis, clubbing, + R foot edema, erythema, + deformity VAC in place with serosang d/c Results - Labs CBC & Chem 7: 05/23/18 09:15 05/24/18 05:48 Labs: Laboratory Results - last 24 hr 05/16/18 05/16/18 05:59 14:05 Creatinine 0.95 Estimated GFR 81 L Vancomycin Trough 21.8 H - Imaging Chest X-Ray 05/10/18 21:36 CONCLUSION: The lungs are clear. Foot X-Ray 05/10/18 21:36 CONCLUSION: Abnormal appearance to the tibiotalar articulation and the articulation between the talus and scaphoid with sclerosis and narrowing. There is associated soft tissue swelling. Differential considerations include septic joint and Charcot joint. Foot MRI 05/11/18 00:00 CONCLUSION: 1. Significant degenerative change within multiple joints with subarticular cystic formation and marrow edema as above. 2. Extensive degenerative edema involving the patient's foot diffusely with focal areas of somewhat limited tracking within the subcutaneous tissues particularly dorsally at the level of the distal third and fourth metatarsals, however no definite abscess is identified. 3. Nonspecific edema of the third distal metatarsal bone and calcaneus. Foot X-Ray 05/13/18 00:00 CONCLUSION: Postoperative deformity of the right forefoot following second and third toe amputations. Assessment and Plan - Plan Preexisting neuropathy BLE R foot abscess sp I+D, polimicrobial including MRSA, Enterobacter, Hameophylus and GAS Fever, leukocytosis cont current abx for now in the abcesnce of MDROs anticipate transition to oral abx upon d/c
[2018-05-16] MEDS: Vancomycin Inj 1,750 MG in Sodium Chlor 0.9% Inj 500 ML IV.SIG SCH (23:17)
[2018-05-17] MEDS: Piperacil/Tazo 3.375 GM Premix 50 ML IV.SIG SCH ×3 (04:00→17:00)
[2018-05-17] MEDS: Vancomycin Inj 1,750 MG in Sodium Chlor 0.9% Inj 500 ML IV.SIG SCH ×2 (05:35→18:13)
[2018-05-17] MEDS: Sod Chloride 0.9% Inj 1,000 ML IV.CONT SCH ×3 (05:36→20:56)
[2018-05-17] MEDS: Aspirin 325 MG Tablet PO SCH (09:37)
[2018-05-17] MEDS: Lisinopril 20 MG Tablet PO SCH ×2 (09:37→20:56)
[2018-05-17] MEDS: Loratadine 10 MG Tablet PO SCH (09:37)
[2018-05-17] MEDS: Senna/Docusate Sodium 8.6/50 MG Tablet PO SCH ×2 (09:37→20:56)
[2018-05-17] MEDS: amLODIPine 5 MG Tablet PO SCH (09:37)
[2018-05-17] MEDS: Hydrocortisone 1% Lotion 120 ML Bottle TOPICAL SCH ×2 (09:37→20:59)
--- NOTE | 2018-05-17 11:12 | P.PNIM ---
Subjective Interval history: 57-year-old male with a past medical history significant for hypertension and neuropathy presents to the emergency department for the evaluation of right foot pain and 5 days of fever/chills. The patient reports that he has pain with ambulation and initially noticed that his foot was swollen, red and draining purulent material when he took off his sock to get in the shower today. He denies chest pain or shortness of breath. No abdominal pain. No nausea/vomiting/diarrhea. No lateralizing signs/symptoms. 7-18 Reports pain overall control. No other concerns at this time. 7-19 Reports he is open to going to surgery again today he wants salvage as much of his foot as possible. Pain overall control. 7-20 Complaining of itchy rash and has back. Otherwise right foot pain controlled and no other complaints at this time. 7-21 Doing okay. No complaints of pain. Reports back rash and itchiness has improved since starting medication and lotion. 7- Overall pain control. Would like to switch beds as there is no foot board and his bed mattress shifts during the night. He is having a hard time elevating his right foot based on the mattress shifting. 7-23 patient has wound VAC in place on right lower extremity. Denies any new issues We will discuss with patient and RN and case management We will need input from podiatry and infectious disease Patient probably will not be able to have wound VAC at home unless it is donated Physical Exam Vital signs: Vital Signs 05/16/18 12:00 05/16/18 16:00 05/16/18 20:00 Temperature 98.0 F 99.2 F 101 F H Pulse Rate 74 85 87 Respiratory Rate 18 18 18 Blood Pressure 184/94 H 174/102 H 174/79 H Pulse Oximetry 93 L 94 L 93 L 05/17/18 00:00 05/17/18 04:00 05/17/18 08:00 Temperature 99 F 99 F 97.7 F Pulse Rate 74 72 89 Respiratory Rate 18 18 20 Blood Pressure 195/99 H 156/80 H 171/110 H Pulse Oximetry 93 L 91 L 94 L Intake & Output 05/16/18 05/17/18 05/17/18 18:59 06:59 18:59 Intake Total 420 / 420 2290 / 2290 Output Total 2400 / 2400 Balance -1979 / -1980 2290 / 2290 Intake: IV 2049 NS Inj 1,000 ML @ 125 mls/hr IV 1999 / 1999 .CONT .Q8H GORDON Rx#:[id number] Zosyn 3.375 GM Premix 50 ML @ 50 / 50 100 mls/hr IV.SIG Q6H GORDON Rx#: [id number] Oral 420 / 420 240 / 240 Output: Urine 2400 / 2400 Other: Mode Setting Left Foot Continuous Right Foot Continuous Continuous # Voids 2 Date of Last Bowel Movement 05/12/18 05/16/18 # Bowel Movements 1 Narrative: GENERAL: This is a well-nourished, well-developed patient, in no apparent distress. CARDIOVASCULAR: Regular rate and rhythm RESPIRATORY: Clear to auscultation. Breath sounds equal bilaterally. No wheezes , rales, or rhonchi. GASTROINTESTINAL: Abdomen soft, non-tender, nondistended. Normal active bowel sounds MUSCULOSKELETAL: Bilateral feet bandage clean dry intact, wound VAC in place NEURO: Alert and oriented to person place and time. Moves all ext x4 SKIN: Erythematous plaque in the back trunk resolving and improving bilateral left and right feet dressed right foot is in back Results - Labs CBC & Chem 7: 05/12/18 05:26 05/16/18 05:59 Laboratory Results - last 24 hr 05/16/18 14:05 Vancomycin Trough 21.8 H Microbiology 05/13/18 15:44 Wound - Foot Gram Stain - Final 05/13/18 15:44 Wound - Foot Wound Culture - Final No growth in 72 hours (aerobically and anaerobically ) - Imaging Chest X-Ray 05/10/18 21:36 CONCLUSION: The lungs are clear. Foot X-Ray 05/10/18 21:36 CONCLUSION: Abnormal appearance to the tibiotalar articulation and the articulation between the talus and scaphoid with sclerosis and narrowing. There is associated soft tissue swelling. Differential considerations include septic joint and Charcot joint. Foot MRI 05/11/18 00:00 CONCLUSION: 1. Significant degenerative change within multiple joints with subarticular cystic formation and marrow edema as above. 2. Extensive degenerative edema involving the patient's foot diffusely with focal areas of somewhat limited tracking within the subcutaneous tissues particularly dorsally at the level of the distal third and fourth metatarsals, however no definite abscess is identified. 3. Nonspecific edema of the third distal metatarsal bone and calcaneus. Foot X-Ray 05/13/18 00:00 CONCLUSION: Postoperative deformity of the right forefoot following second and third toe amputations. - Procedures 05/10 I&D dorsal and plantar surface right foot with Dr. Lopez Date of procedure: 05/13/18 Pre-op diagnosis: Right foot infection, second third metatarsal OM, Left foot ulcer Post-op diagnosis: same Procedure: Right foot debridement and irrigation with second, third metatarsal head resection Left foot ulcer debridement Anesthesia: GETA Surgeon: Nallely Gabriel Assessment and Plan - Assessment (1) Hypertension Code(s): I10 - Essential (primary) hypertension Status: Chronic - Plan 1. Sepsis with Right foot infection abscess status post right I&D dorsal and plantar surface on 05/[address] Lopez Continue postoperative care and wound care per Podiatry Status post surgery (05/13) Right foot debridement and irrigation with second, third metatarsal head resection Left foot ulcer debridement with VAC placement with Dr. Nallely Gabriel Per podiatry will reevaluate wound today to determine if patient will need further surgical debridement MRI results reviewed Blood/wound cultures shows MRSA, group A beta strep and Enterbacter cloacae. Continue with IV vancomycin/Zosyn Consideration of switching to p.o. Levaquin with discharge planning. 2. Hypertension, chronic essential, not optimally controlled Continue home lisinopril and will increase dosing to 20 mg p.o. twice daily IV Vasotec as needed. We will also add amlodipine 5 mg p.o. daily. 3. Hypokalemia Replete 4. Possible contact dermatitis of the back, improvingClaritin and 1% hydrocortisone cream 5. DVT prophylaxisaspirin Home with home health care when cleared by podiatry. Code Status: FULL CODE Discussed Condition With: RN AND PT AND CM Discharge Planning: ONCE CLEARED BY ID AND PODIATRY STILL HAS VAC IN PLACE (1) Hypertension Qualifiers: Hypertension type: essential hypertension Qualified Code(s): I10 - Essential (primary) hypertension
[2018-05-18] MEDS: Piperacil/Tazo 3.375 GM Premix 50 ML IV.SIG SCH ×5 (00:47→23:58)
[2018-05-18 05:12] LABS: Baso # (Auto) 0.1 th/mm3 (0.0-0.2); Eos # (Auto) 0.5 th/mm3 (0.0-0.4); Eos % (Auto) 4.1 % (0.0-4.0); Hematocrit 28.8 % (39.0-51.0); Hemoglobin 9.6 gm/dL (13.0-17.0); Lymph # (Auto) 1.1 th/mm3 (1.0-4.8); Lymph % (Auto) 9.9 % (9.0-44.0); Mean Corpuscular HGB Conc 33.3 % (32.0-36.0); Mean Corpuscular Hemoglobin 29.3 pg (27.0-34.0); Mean Corpuscular Volume 88.1 fL (80.0-100.0); Mean Platelet Volume 6.7 fL (7.0-11.0); Mono # (Auto) 0.5 th/mm3 (0.0-0.9); Mono % (Auto) 4.7 % (0.0-8.0); Neut # (Auto) 8.9 th/mm3 (1.8-7.7); Neut % (Auto) 80.3 % (16.0-70.0); Platelet Count 504 th/mm3 (150-450); Red Blood Count 3.27 mil/mm3 (4.50-5.90); Red Cell Distribution Width 14.8 % (11.6-17.2); White Blood Count 11.1 th/mm3 (4.0-11.0)
[2018-05-18 05:23] LABS: Albumin 1.9 g/dL (3.4-5.0); Anion Gap 9 meq/L (5-15); Aspartate Aminotransferase 41 U/L (15-37); Blood Urea Nitrogen 12 mg/dL (7-18); Calcium 8.1 mg/dL (8.5-10.1); Carbon Dioxide 27.3 meq/L (21.0-32.0); Chloride 106 meq/L (98-107); Glomerular Filtration Rate 69 mL/min (>89); Glucose,Random 88 mg/dL (74-106); Magnesium 2.1 mg/dL (1.5-2.5); Potassium 3.6 meq/L (3.5-5.1); Sodium 142 meq/L (136-145)
[2018-05-18] MEDS: Vancomycin Inj 1,750 MG in Sodium Chlor 0.9% Inj 500 ML IV.SIG SCH (05:25)
[2018-05-18] MEDS: Sod Chloride 0.9% Inj 1,000 ML IV.CONT SCH ×3 (05:26→20:17)
[2018-05-18 05:27] LABS: Alanine Aminotransferase 26 U/L (12-78); Alkaline Phosphatase 233 U/L (45-117); Free T4 (Free Thyroxine) 1.26 ng/dL (0.76-1.46); Total Protein 7.8 g/dL (6.4-8.2)
[2018-05-18] MEDS ORDERED: Pharmacy Ordered Lab Info OTHER ONE (05:45)
[2018-05-18 06:02] LABS: Vancomycin,Trough 20.2 mcg/mL (5.0-10.0)
[2018-05-18] MEDS: amLODIPine 5 MG Tablet PO SCH (08:39)
[2018-05-18] MEDS: Lisinopril 20 MG Tablet PO SCH ×2 (08:39→20:24)
[2018-05-18] MEDS: Loratadine 10 MG Tablet PO SCH (08:39)
[2018-05-18] MEDS: Senna/Docusate Sodium 8.6/50 MG Tablet PO SCH ×2 (08:39→20:17)
[2018-05-18] MEDS: Aspirin 325 MG Tablet PO SCH (08:39)
[2018-05-18] MEDS: Hydrocortisone 1% Lotion 120 ML Bottle TOPICAL SCH ×2 (08:40→20:18)
--- NOTE | 2018-05-18 10:19 | P.PNWCN ---
Wound Care Nurse Consult Description: Consult for wound management of right foot per Riki Communicated with: Hayden EDEN, Recommendation: 1. Cleanse left plantar and Right dorsal/plantar surgical incisions with normal saline.Pat dry 2. Apply Puracol AG to right plantar ulcer cover with dry absorbant dressing change secondary dressing as needed for exudate management.leave puracol AG in place x7 days. 3. Wound Vac to be changed by wound care nurse every [id number].Please reinforce dressing if needed. Additional information: Patient was seen today by creative services writer for wound vac management.Rn Postpartum received call from Lenora EDEN stating wound vac is alarming after several attempts to trouble shoot.Patient alert and oriented x4 sitting up ion bed with no complaints of discomfort.Wound vac dressing and sponge removed from right foot with out difficulty.Wounds cleansed with normal saline pat dry.dorsal right foot has a well approximated intact sutured dry incision.Skin prep applied and covered with Maxorb ll cut in strip for protection .Plantar surgical wound skin prep to periwound creative services writer applied Ebony seal to wound edges single piece black GranuFoam applied to wound base and bridge to dorsal foot drape applied and seal achieved @125mmHG low continuous suction.Patient tolerated wound care well.Left plantar has a ulcer measuring ~1.0cm x ~1.0cm x ~0.1cm wound base is moist pink non granular tissue wound edges are well defined even with wound base scant serous exudate noted without odor.no erythema noted wound cleanse with normal saline pat dry Puracol AG applied to wound base and covered with dry foam dressing.All dressings signed and dated. Wound/Pressure Injury - Patient Status Premedicated for Pain Prior to Dressing Change: No - Wound Right Foot Wound Assessment: Ongoing Wound Type: Traumatic Wound Is This a Chronic Wound: Yes Requested from Provider a Wound Care Consult: No (Ashleigh EDEN,[facility] seen 05/17) Wound Bed Appearance: Red, Shiny, Sutures Drainage Description: Serosanguinous Drainage Amount: Moderate Drainage Odor: No Odor Dressing Status: Dry & Intact, Changed Cleansing Solution: Saline Wound Packing Type: Woundvac Sponge Cover Dressing: Emeka bandage w/ Wound Vac at 125 continuously Wound Dressing Change Date: 05/17/18 Left Foot Wound Assessment: Ongoing Wound Type: Pressure Injury Is This a Chronic Wound: Yes Requested from Provider a Wound Care Consult: No (Ashleigh EDEN,[facility] seen 05/17) Wound Bed Appearance: [place], White Surrounding Tissue Temperature: Cool Drainage Description: Sanguinous Drainage Amount: Scant Drainage Odor: No Odor Dressing Status: Changed Wound Packing Type: Collagen Primary Dressing: Gauze Pad Cover Dressing: Adhesive Dressing Wound Dressing Change Date: 05/17/18 Wound Vac - Wound Vac Right Foot Pressure Setting (mmHg): 125 Mode Setting: Continuous Drainage Description: Serosanguinous Foam type: Black Incision - Patient Status Premedicated for Pain Prior to Dressing Change: No - Incision Right Foot Incision Assessment: Ongoing Incision Type: Incision Incision Description: Open Incision Dressing Status: Dry & Intact Incision Packing Type: Woundvac Sponge Primary Dressing: Negative Pressure Wound Dressing Cover Dressing: Elastic Bandage, Transparent Other Cover Dressing: Pt has wound vac Y-sited to top and heel of rigth foot Left Foot Incision Assessment: Ongoing Incision Type: Incision Incision Description: Open Incision Bed Appearance: Blisters - Intact Incision Dressing Status: Dry & Intact Primary Dressing: Gauze Pad Cover Dressing: Elastic Bandage, Gauze Roll/Wrap Tape Type: Silk
[2018-05-18] MEDS ORDERED: Morphine Sulfate Inj 2 MG/ML Vial IV.PUSH PRN (12:03)
[2018-05-18] MEDS ORDERED: Morphine Inj 4 MG/ML Vial IV.PUSH PRN ×2 (12:03)
[2018-05-18] MEDS ORDERED: Naloxone Inj 0.4 MG/ML Vial IV.PUSH PRN (12:03)
--- NOTE | 2018-05-18 12:06 | P.PNIM ---
Subjective Interval history: 57-year-old male with a past medical history significant for hypertension and neuropathy presents to the emergency department for the evaluation of right foot pain and 5 days of fever/chills. The patient reports that he has pain with ambulation and initially noticed that his foot was swollen, red and draining purulent material when he took off his sock to get in the shower today. He denies chest pain or shortness of breath. No abdominal pain. No nausea/vomiting/diarrhea. No lateralizing signs/symptoms. 7-18 Reports pain overall control. No other concerns at this time. 7-19 Reports he is open to going to surgery again today he wants salvage as much of his foot as possible. Pain overall control. 7-20 Complaining of itchy rash and has back. Otherwise right foot pain controlled and no other complaints at this time. 7-21 Doing okay. No complaints of pain. Reports back rash and itchiness has improved since starting medication and lotion. 7- Overall pain control. Would like to switch beds as there is no foot board and his bed mattress shifts during the night. He is having a hard time elevating his right foot based on the mattress shifting. 7- patient has wound VAC in place on right lower extremity. Denies any new issues We will discuss with patient and RN and case management We will need input from podiatry and infectious disease Patient probably will not be able to have wound VAC at home unless it is donated 7-24 COMPLAINS OF PAIN IN RIGHT FOOT HE STATES PERCOCET NOT WORKING WELL ENOUGH WILL ADJUST DW RN AND PT AND CM Physical Exam Vital signs: Vital Signs 05/17/18 16:00 05/17/18 20:00 05/18/18 00:00 Temperature 97.9 F 99.8 F H 99.4 F Pulse Rate 75 69 70 Respiratory Rate 20 18 18 Blood Pressure 184/108 H 174/97 H 170/85 H Pulse Oximetry 94 L 95 95 05/18/18 04:00 05/18/18 08:00 Temperature 98.5 F 97.8 F Pulse Rate 69 68 Respiratory Rate 18 20 Blood Pressure 178/94 H 174/86 H Pulse Oximetry 94 L 94 L Intake & Output 05/17/18 05/18/18 05/18/18 18:59 06:59 18:59 Intake Total 2577.5 / 2577.5 2097.5 / 2097.5 1050 / 1050 Output Total 1775 / 1775 2600 / 2600 Balance 802.5 / 802.5 -502.5 / -502.5 1050 / 1050 Weight 121.6 kg Intake: IV 1617.5 / 1617.5 1617.5 / 1617.5 1050 / 1050 NS Inj 1,000 ML @ 125 mls/hr IV 1000 / 1000 1000 / 1000 1000 / 1000 .CONT .Q8H GORDON Rx#:[id number] Zosyn 3.375 GM Premix 50 ML @ 100 / 100 100 / 100 50 / 50 100 mls/hr IV.SIG Q6H GORDON Rx#: [id number] Vancomycin Inj 1,750 MG In NS 517.5 / 517.5 517.5 / 517.5 Inj 500 ML @ 265 mls/hr IV.SIG Q12H GORDON Rx#:[id number] Oral 960 / 960 480 / 480 Output: Urine 1775 / 1775 2600 / 2600 Other: Mode Setting Left Foot Continuous Continuous Right Foot Continuous Continuous Continuous Date of Last Bowel Movement 05/17/18 # Bowel Movements 0 1 Narrative: GENERAL: This is a well-nourished, well-developed patient, in no apparent distress. CARDIOVASCULAR: Regular rate and rhythm RESPIRATORY: Clear to auscultation. Breath sounds equal bilaterally. No wheezes , rales, or rhonchi. GASTROINTESTINAL: Abdomen soft, non-tender, nondistended. Normal active bowel sounds MUSCULOSKELETAL: Bilateral feet bandage clean dry intact, wound VAC in place NEURO: Alert and oriented to person place and time. Moves all ext x4 SKIN: Erythematous plaque in the back trunk resolving and improving bilateral left and right feet dressed right foot is in back--WOUND VAC IN PLACE Results - Labs CBC & Chem 7: 05/18/18 04:00 05/18/18 04:00 Laboratory Results - last 24 hr 05/18/18 05/18/18 05/18/18 04:00 04:00 04:00 WBC 11.1 H RBC 3.27 L Hgb 9.6 L Hct 28.8 L MCV 88.1 MCH 29.3 MCHC 33.3 RDW 14.8 Plt Count 504 H D MPV 6.7 L Neut % (Auto) 80.3 H Lymph % (Auto) 9.9 [place] % (Auto) 4.7 Eos % (Auto) 4.1 H Baso % (Auto) 1.0 Neut # (Auto) 8.9 H Lymph # (Auto) 1.1 [place] # (Auto) 0.5 Eos # (Auto) 0.5 H Baso # (Auto) 0.1 WBC Differential . Differential Comment Auto diff final Sodium 142 Potassium 3.6 Chloride 106 Carbon Dioxide 27.3 Anion Gap 9 BUN 12 Creatinine 1.10 Estimated GFR 69 L Random Glucose 88 Calcium 8.1 L Phosphorus 4.0 Magnesium 2.1 Total Bilirubin 0.5 AST 41 H ALT 26 Alkaline Phosphatase 233 H Total Protein 7.8 Albumin 1.9 L Free T4 1.26 Vancomycin Trough Cancelled 20.2 H - Procedures 05/10 I&D dorsal and plantar surface right foot with Dr. Lopez Date of procedure: 05/13/18 Pre-op diagnosis: Right foot infection, second third metatarsal OM, Left foot ulcer Post-op diagnosis: same Procedure: Right foot debridement and irrigation with second, third metatarsal head resection Left foot ulcer debridement Anesthesia: GONZALOA Surgeon: Nallely Gabriel Assessment and Plan - Assessment (1) Hypertension Code(s): I10 - Essential (primary) hypertension Status: Chronic - Plan 1. Sepsis with Right foot infection abscess status post right I&D dorsal and plantar surface on 05/[address] Lopez Continue postoperative care and wound care per Podiatry Status post surgery (05/13) Right foot debridement and irrigation with second, third metatarsal head resection Left foot ulcer debridement with VAC placement with Dr. Nallely Gabriel Per podiatry will reevaluate wound today to determine if patient will need further surgical debridement MRI results reviewed Blood/wound cultures shows MRSA, group A beta strep and Enterbacter cloacae. Continue with IV vancomycin/Zosyn Consideration of switching to p.o. Levaquin with discharge planning. 2. Hypertension, chronic essential, not optimally controlled Continue home lisinopril and will increase dosing to 20 mg p.o. twice daily IV Vasotec as needed. We will also add amlodipine 5 mg p.o. daily. 3. Hypokalemia Replete 4. Possible contact dermatitis of the back, improvingClaritin and 1% hydrocortisone cream 5. DVT prophylaxisaspirin PAIN CONTROL WILL ADJUST DW RN AN DPT Home with home health care when cleared by podiatry. Code Status: FULL CODE Discussed Condition With: RN AND PT AND CM Discharge Planning: ONCE CLEARED BY ID AND PODIATRY STILL HAS VAC IN PLACE (1) Hypertension Qualifiers: Hypertension type: essential hypertension Qualified Code(s): I10 - Essential (primary) hypertension
[2018-05-18 17:05] LABS: Hemoglobin A1c 4.9 % (4.3-6.0)
[2018-05-18] MEDS: Vancomycin Inj 1,500 MG in Sodium Chlor 0.9% Inj 500 ML IV.SIG SCH (17:20)
[2018-05-18] MEDS: oxyCODONE/Acetaminophen 10/325 Tablet PO PRN ×2 (18:08→23:57)
--- NOTE | 2018-05-18 23:06 | P.PNID ---
Subjective Remarks: ID - pt was seenearlier today around 1200 noon co pain path + for acute osteomyelitis Antibiotics: zosyn vancomycin Allergies/Adverse Reactions: Allergies No Known Allergies Allergy (Verified 05/11/18 06:14) Objective Vital Signs 05/18/18 00:00 05/18/18 04:00 05/18/18 08:00 Temperature 99.4 F 98.5 F 97.8 F Pulse Rate 70 69 68 Respiratory Rate 18 18 20 Blood Pressure 170/85 H 178/94 H 174/86 H Pulse Oximetry 95 94 L 94 L 05/18/18 12:00 05/18/18 16:00 Temperature 97.9 F 98.7 F Pulse Rate 71 69 Respiratory Rate 20 20 Blood Pressure 162/77 H 180/94 H Pulse Oximetry 94 L 95 Intake & Output 05/18/18 05/18/18 05/19/18 06:59 18:59 06:59 Intake Total 2097.5 / 2097.5 3575 / 3575 Output Total 2600 / 2600 1850 / 1850 Balance -502.5 / -502.5 1725 / 1725 Weight 121.6 kg Intake: IV 1617.5 / 1617.5 2615 / 2615 NS Inj 1,000 ML @ 125 mls/hr IV 1000 / 1000 2000 / 2000 .CONT .Q8H GORDON Rx#:[id number] Zosyn 3.375 GM Premix 50 ML @ 100 / 100 100 / 100 100 mls/hr IV.SIG Q6H GORDON Rx#: [id number] Vancomycin Inj 1,500 MG In NS 517.5 / 517.5 515 / 515 Inj 500 ML @ 265 mls/hr IV.SIG Q12H GORDON Rx#:[id number] Oral 480 / 480 960 / 960 Output: Urine 2600 / 2600 1850 / 1850 Other: Mode Setting Left Foot Continuous Right Foot Continuous Continuous Continuous Date of Last Bowel Movement 05/17/18 05/17/18 # Bowel Movements 1 0 05/11/18 18:18 Wound - Foot Acid Fast Bacilli Smear - Final No acid fast bacilli seen 05/11/18 18:18 Wound - Foot Mycobacterial Culture - Preliminary No growth in 1 week 05/11/18 18:18 Wound - Foot Fungal Smear - Final No fungal elements seen 05/11/18 18:18 Wound - Foot Fungal Culture - Preliminary No growth in 1 week 05/13/18 15:44 Wound - Foot Gram Stain - Final 05/13/18 15:44 Wound - Foot Wound Culture - Final No growth in 72 hours (aerobically and anaerobically ) Lab - Hematology Results 05/18/18 04:00 WBC 11.1 H RBC 3.27 L Hgb 9.6 L Hct 28.8 L MCV 88.1 MCH 29.3 MCHC 33.3 RDW 14.8 Plt Count 504 H D MPV 6.7 L Neut % (Auto) 80.3 H Lymph % (Auto) 9.9 [place] % (Auto) 4.7 Eos % (Auto) 4.1 H Baso % (Auto) 1.0 Neut # (Auto) 8.9 H Lymph # (Auto) 1.1 [place] # (Auto) 0.5 Eos # (Auto) 0.5 H Baso # (Auto) 0.1 WBC Differential . Differential Comment Auto diff final Lab - Chemistry Results 05/18/18 05/18/18 04:00 04:00 Sodium 142 Potassium 3.6 Chloride 106 Carbon Dioxide 27.3 Anion Gap 9 BUN 12 Creatinine 1.10 Estimated GFR 69 L Random Glucose 88 Hemoglobin A1c 4.9 Calcium 8.1 L Phosphorus 4.0 Magnesium 2.1 Total Bilirubin 0.5 AST 41 H ALT 26 Alkaline Phosphatase 233 H Total Protein 7.8 Albumin 1.9 L Free T4 1.26 Imaging: ITS Impressions Chest X-Ray 05/10/18 21:36 CONCLUSION: The lungs are clear. Foot MRI 05/11/18 00:00 CONCLUSION: 1. Significant degenerative change within multiple joints with subarticular cystic formation and marrow edema as above. 2. Extensive degenerative edema involving the patient's foot diffusely with focal areas of somewhat limited tracking within the subcutaneous tissues particularly dorsally at the level of the distal third and fourth metatarsals, however no definite abscess is identified. 3. Nonspecific edema of the third distal metatarsal bone and calcaneus. Foot X-Ray 05/13/18 00:00 CONCLUSION: Postoperative deformity of the right forefoot following second and third toe amputations. Physical Exam: GENERAL: NAD SKIN: Warm and dry. HEAD: Normocephalic. EYES: No scleral icterus. No injection or drainage. NECK: Supple, trachea midline. No JVD or lymphadenopathy. CARDIOVASCULAR: Regular rate and rhythm without murmurs, gallops, or rubs. RESPIRATORY: Breath sounds equal bilaterally. No accessory muscle use. GASTROINTESTINAL: Abdomen soft, non-tender, nondistended. MUSCULOSKELETAL: No cyanosis, or edema. R foot with edema, erythema VAC in place with serosang d/c BACK: Nontender without obvious deformity. No CVA tenderness. Assessment and Plan - Plan Preexisting neuropajht R foot abscess sp I+D, polimicrobial including NRSA, Enterobacter, Hameophylus and GAS Metatarsal osteo Fever, leukocytosis; resolved cont current abx for now OK to dc once cleared by podiatry will need IV abx 2/2 osteo OPAT PICC
[2018-05-19] MEDS: Vancomycin Inj 1,500 MG in Sodium Chlor 0.9% Inj 500 ML IV.SIG SCH ×2 (05:30→17:00)
[2018-05-19] MEDS: Piperacil/Tazo 3.375 GM Premix 50 ML IV.SIG SCH ×4 (05:30→23:05)
[2018-05-19] MEDS: oxyCODONE/Acetaminophen 10/325 Tablet PO PRN ×3 (05:30→18:57)
[2018-05-19] MEDS: Lisinopril 20 MG Tablet PO SCH ×2 (08:12→21:20)
[2018-05-19] MEDS: Loratadine 10 MG Tablet PO SCH (08:12)
[2018-05-19] MEDS: Aspirin 325 MG Tablet PO SCH (08:12)
[2018-05-19] MEDS: amLODIPine 5 MG Tablet PO SCH (08:12)
[2018-05-19] MEDS: Senna/Docusate Sodium 8.6/50 MG Tablet PO SCH ×2 (08:12→21:21)
[2018-05-19] MEDS: Hydrocortisone 1% Lotion 120 ML Bottle TOPICAL SCH ×2 (08:14→21:20)
[2018-05-19] MEDS: Sod Chloride 0.9% Inj 1,000 ML IV.CONT SCH ×3 (08:24→23:05)
--- NOTE | 2018-05-19 11:03 | P.PNADD ---
Addendum to Inpatient Note Additional information: will use vancomycin and ceftriaxone x 6 weeks
--- NOTE | 2018-05-19 11:04 | P.PNIM ---
Subjective Interval history: Was taking Protonix at home and would like to restart the home medication. Right foot pain is improved. Physical Exam Vital signs: Vital Signs 05/18/18 12:00 05/18/18 16:00 05/18/18 20:00 Temperature 97.9 F 98.7 F 98.1 F Pulse Rate 71 69 74 Respiratory Rate 20 20 18 Blood Pressure 162/77 H 180/94 H 168/81 H Pulse Oximetry 94 L 95 95 05/19/18 00:00 05/19/18 04:00 05/19/18 08:00 Temperature 98.6 F 98.0 F 97.3 F L Pulse Rate 71 74 67 Respiratory Rate 18 18 20 Blood Pressure 167/82 H 164/84 H 182/86 H Pulse Oximetry 94 L 95 94 L Intake & Output 05/18/18 05/19/18 05/19/18 18:59 06:59 18:59 Intake Total 3575 / 3575 1010 / 1010 Output Total 1850 / 1850 2700 / 2700 Balance 1725 / 1725 -1690 / -1690 Weight 122.1 kg Intake: IV 2615 / 2615 50 / 50 NS Inj 1,000 ML @ 125 mls/hr IV 1999 / 1999 .CONT .Q8H [facility] Rx#:[id number] Zosyn 3.375 GM Premix 50 ML @ 100 / 100 50 / 50 100 mls/hr IV.SIG Q6H [facility] Rx#: [id number] Vancomycin Inj 1,500 MG In NS 515 / 515 Inj 500 ML @ 265 mls/hr IV.SIG Q12H [facility] Rx#:[id number] Oral 960 / 960 960 / 960 Output: Urine 1850 / 1850 2700 / 2700 Other: Mode Setting Right Foot Continuous Continuous Date of Last Bowel Movement 05/17/18 # Bowel Movements 0 0 Narrative: GENERAL: This is a well-nourished, well-developed patient, in no apparent distress. CARDIOVASCULAR: Regular rate and rhythm RESPIRATORY: Clear to auscultation. Breath sounds equal bilaterally. No wheezes , rales, or rhonchi. GASTROINTESTINAL: Abdomen soft, non-tender, nondistended. Normal active bowel sounds MUSCULOSKELETAL: Bilateral feet bandage clean dry intact, wound VAC in place NEURO: Alert and oriented to person place and time. Moves all ext x4 SKIN: Erythematous plaque in the back trunk resolving and improving bilateral left and right feet dressed with Emeka bandage, right foot with wound VAC Results - Labs CBC & Chem 7: 05/18/18 04:00 05/18/18 04:00 Laboratory Results - last 24 hr 05/18/18 04:00 Hemoglobin A1c 4.9 Microbiology 05/11/18 18:18 Wound - Foot Acid Fast Bacilli Smear - Final No acid fast bacilli seen 05/11/18 18:18 Wound - Foot Mycobacterial Culture - Preliminary No growth in 1 week 05/11/18 18:18 Wound - Foot Fungal Smear - Final No fungal elements seen 05/11/18 18:18 Wound - Foot Fungal Culture - Preliminary No growth in 1 week - Procedures 05/10 I&D dorsal and plantar surface right foot with Dr. Lopez Date of procedure: 05/13/18 Pre-op diagnosis: Right foot infection, second third metatarsal OM, Left foot ulcer Post-op diagnosis: same Procedure: Right foot debridement and irrigation with second, third metatarsal head resection Left foot ulcer debridement Anesthesia: DICK Surgeon: Nallely Gabriel Assessment and Plan - Assessment (1) Hypertension Code(s): I10 - Essential (primary) hypertension Status: Chronic - Plan Assessment/plan: 1. Sepsis with Right foot infection abscess status post right I&D dorsal and plantar surface on 05/[address] Lopez Continue postoperative care and wound care per Podiatry Status post operative day #6 (05/13) Right foot debridement and irrigation with second, third metatarsal head resection Left foot ulcer debridement with VAC placement with Dr. Nallely Gabriel Per podiatry will reevaluate wound to determine if patient will need further surgical debridement MRI results reviewed Blood/wound cultures shows MRSA, group A beta strep and Enterbacter cloacae. Continue with IV vancomycin/Zosyn Infectious disease physician felt he may need IV antibiotics upon discharge await final recommendations. 2. Hypertension, chronic essential, not optimally controlled Continue home lisinopril and will increase dosing to 20 mg p.o. twice daily IV Vasotec as needed. We will also add amlodipine 5 mg p.o. daily. 3. Hypokalemia Replete 4. Possible contact dermatitis of the back, improvingClaritin and 1% hydrocortisone cream, clinically improving 5. History of esophagitis, gastritis, GE ulcerresume home Protonix 5. DVT prophylaxisaspirin Discharge Planning: Home with home health care when cleared by podiatry. (1) Hypertension Qualifiers: Hypertension type: essential hypertension Qualified Code(s): I10 - Essential (primary) hypertension
--- NOTE | 2018-05-19 11:34 | P.DCO ---
Post Hospital Infusion Therapy Location of Infusion Therapy: Ambulatory Infusion Therapy Order Patient Weight: 122.1 kg - Diagnosis (1) Osteomyelitis Code(s): M86.9 - Osteomyelitis, unspecified - Administer Medication Daptomycin Dose: 1 gram IV Directions: q 24 hours Start Treatment: 05/20/18 Stop Treatment: 06/23/18 Ceftriaxone Dose: 2 grams IV Directions: q 24 hours Start Treatment: 05/20/18 Stop Treatment: 06/23/18 - Additional Information Venous Access: PICC Line Additional Instructions: [x] Peripheral flush and dressing changes per protocol [x] Implanted port and central airline counter agent: * Implanted port: 10 ml Normal Saline followed by 5 ml Heparin 100 units/ml Heparin flush after each use and monthly to maintain. [] May leave port accessed during therapy. [] May leave peripheral site accessed for duration of therapy. [x] If patient has SOB or respiratory distress, check oxygen saturation. If less than 90% or clinical signs of respiratory distress, administer oxygen at 2 L/min. via nasal cannula and notify physician. [x] Anaphylaxis/Reaction orders: * Stop infusion. * Keep IV line open with saline flush. * Notify physician. * Monitor vital signs every 15 minutes until symptoms resolve. * Check Oxygen saturation; Oxygen at 2 L/min. via nasal cannula if less than 90% or clinical signs of respiratory distress. * Administer diphenhydramine (Benadryl) 25 mg IV STAT, (unless patient has received as pre-med). May repeat once, if necessary. * Solu-Cortef 250 mg IVP over 30-60 seconds, use 100 mg vials for each dissolution. * Epinephrine (1mg/1 ml) 0.3 mg subcutaneously or IVP now with any signs of respiratory distress. * Check with physician for new additional pre-med orders if patient is re- challenged or re-treated. [x] May remove PICC line when treatment complete, after confirming with Physician. [x] If the patient is admitted to the hospital, the ED, or transferred via [facility] , complete transfer form including medication reconciliation order sheet. Weekly Labs: CBC w/diff, CMP, Serum CK Levels Allergies No Known Allergies Allergy (Verified 05/11/18 06:14) (1) Osteomyelitis Qualifiers: Osteomyelitis type: unspecified type Osteomyelitis location: foot Laterality : right Qualified Code(s): M86.9 - Osteomyelitis, unspecified
[2018-05-19] MEDS ORDERED: amLODIPine 5 MG Tablet PO ONE (12:00)
--- NOTE | 2018-05-19 14:01 | P.DCO ---
- Diagnosis (2) Osteomyelitis - Home Health Nursing Order: Wound care and dressing changes, IV medication administration - Certification I have seen patient Chandana Newman on 05/19/18. My clinical findings support the need for the requested home health care services because: Limited mobility due to disease progression, Infection with risk of complications I certify that my clinical findings support that this patient is homebound because: Post-op weakness (2) Osteomyelitis Qualifiers: Osteomyelitis type: unspecified type Osteomyelitis location: foot Laterality : right Qualified Code(s): M86.9 - Osteomyelitis, unspecified
--- NOTE | 2018-05-19 20:35 | P.PNPOD ---
Subjective Interval history: Pt is s/p right foot I&D with , and currently being treated with a wound VAC. Pt denies any n/v/f/h/c/sob/pain. Physical Exam Vital signs: Vital Signs 05/19/18 00:00 05/19/18 04:00 05/19/18 08:00 Temperature 98.6 F 98.0 F 97.3 F L Pulse Rate 71 74 67 Respiratory Rate 18 18 20 Blood Pressure 167/82 H 164/84 H 182/86 H Pulse Oximetry 94 L 95 94 L 05/19/18 12:00 05/19/18 16:00 Temperature 97.9 F Pulse Rate 63 69 Respiratory Rate 20 20 Blood Pressure 148/74 H 172/85 H Pulse Oximetry 95 94 L Intake & Output 05/19/18 05/19/18 05/20/18 06:59 18:59 06:59 Intake Total 1060 / 1060 3850 / 3850 Output Total 2700 / 2700 1150 / 1150 Balance -1640 / -1640 2700 / 2700 Weight 122.1 kg 122.1 kg Intake: IV 100 / 100 3130 / 3130 NS Inj 1,000 ML @ 125 mls/hr IV 1999 / 1999 .CONT .Q8H [facility] Rx#:[id number] Zosyn 3.375 GM Premix 50 ML @ 100 / 100 100 / 100 100 mls/hr IV.SIG Q6H [facility] Rx#: [id number] Vancomycin Inj 1,500 MG In NS 1030 / 1030 Inj 500 ML @ 265 mls/hr IV.SIG Q12H [facility] Rx#:[id number] Oral 960 / 960 720 / 720 Output: Urine 2700 / 2700 1150 / 1150 Other: Mode Setting Right Foot Continuous Date of Last Bowel Movement 05/17/18 # Bowel Movements 0 Narrative: Right foot plantar ulcer unchanged from previous visit, no signs of infection. Dorsal sutures are intact. Medications and Allergies Active Medications: Active Medications Acetaminophen (Tylenol) 650 mg PO Q4H PRN PRN Reason: FEVER > 100.4 F Last Admin: 05/16/18 20:54 Dose: 650 mg Al Hydroxide/Mg Hydroxide (Milk Of Magnesia Liq) 30 ml PO Q12H PRN PRN Reason: Mild Constipation Amlodipine Besylate (Norvasc) 10 mg PO DAILY [facility] Aspirin (Aspirin) 325 mg PO DAILY [facility] Last Admin: 05/19/18 08:12 Dose: 325 mg Bisacodyl (Dulcolax Supp) 10 mg RECTAL DAILY PRN PRN Reason: SEVERE CONSITIPATION Enalaprilat (Vasotec Inj) 1.25 mg IV.PUSH Q6H PRN PRN Reason: SEE LABEL COMMENTS Last Admin: 05/17/18 00:37 Dose: 1.25 mg Hydrocortisone Acetate (Hydrocortisone 1% Lotion) 1 applicatio TOPICAL BID [facility] Last Admin: 05/19/18 08:14 Dose: 1 applicatio Vancomycin HCl 1,500 mg/ (Sodium Chloride) 515 mls @ 265 mls/hr IV.SIG Q12H [facility] Last Infusion: 05/19/18 18:55 Dose: Infused Sodium Chloride (Ns Inj) 1,000 mls @ 125 mls/hr IV.CONT .Q8H [facility] Last Infusion: 05/19/18 13:31 Dose: Infused Pharmacy Profile Note (Vancomycin Consult Pharmacy) 0 mls @ 0 mls/hr OTHER UNSCH [facility] Piperacillin/Tazobactam/Dextrose (Zosyn 3.375 Gm Premix) 50 mls @ 100 mls/hr IV.SIG Q6H [facility] Last Infusion: 05/19/18 17:01 Dose: Infused Lactulose (Lactulose Liq) 30 ml PO DAILY PRN PRN Reason: SEVERE CONSITIPATION Lisinopril (Prinivil) 20 mg PO BID [facility] Last Admin: 05/19/18 08:12 Dose: 20 mg Loratadine (Claritin) 10 mg PO DAILY [facility] Stop: 05/21/18 14:29 Last Admin: 05/19/18 08:12 Dose: 10 mg Miscellaneous Information ([facility] Ordered Lab Info) 0 each OTHER ONCE ONE Stop: 05/20/18 05:46 Morphine Sulfate (Morphine Inj) 2 mg IV.PUSH Q3H PRN PRN Reason: PAIN 3-5; IF UABLE TO TAKE PO Morphine Sulfate (Morphine Inj) 4 mg IV.PUSH Q3H PRN PRN Reason: PAIN 6-10;IF UNABLE TO TAKE PO Morphine Sulfate (Morphine Inj) 4 mg IV.PUSH Q3H PRN PRN Reason: BREAKTHROUGH PAIN Naloxone HCl (Narcan Inj) 0.4 mg IV.PUSH UNSCH PRN PRN Reason: SEE LABEL COMMENTS Ondansetron HCl (Zofran Inj) 4 mg IV.PUSH Q6H PRN PRN Reason: NAUSEA OR VOMITING Oxycodone/Acetaminophen (Percocet 10/325 Mg) 1 tab PO Q6H PRN PRN Reason: PAIN SCALE 6 TO 10 Last Admin: 05/19/18 18:57 Dose: 1 tab Oxycodone/Acetaminophen (Percocet 5/325 Mg) 1 tab PO Q6H PRN PRN Reason: PAIN SCALE 3 TO 5 Pantoprazole Sodium (Protonix) 40 mg PO DAILY [facility] Last Admin: 05/19/18 12:23 Dose: 40 mg Senna/Docusate Sodium (Aubree-Colace) 1 tab PO BID [facility] Last Admin: 05/19/18 08:12 Dose: 1 tab Sennosides (Senokot) 17.2 mg PO Q12H PRN PRN Reason: Moderate Constipation Sodium Chloride (Ns Flush) 2 ml IV.FLUSH BID [facility] Last Admin: 05/19/18 08:13 Dose: 2 ml Sodium Chloride (Ns Flush) 2 ml IV.FLUSH PRN PRN PRN Reason: FLUSH AFTER USING IV ACCESS Temazepam (Restoril) 15 mg PO HS PRN PRN Reason: INSOMNIA Last Admin: 05/15/18 23:30 Dose: 15 mg Allergies Allergy/AdvReac Type Severity Reaction Status Date / Time No Known Allergies Allergy Verified 05/11/18 06:14 Home Medications Medication Instructions Recorded Confirmed Type lisinopril 10 mg PO BID 05/11/18 05/11/18 History Results - Labs CBC & Chem 7: 05/18/18 04:00 05/18/18 04:00 - Procedures 05/10 I&D dorsal and plantar surface right foot with Dr. Lopez Date of procedure: 05/13/18 Pre-op diagnosis: Right foot infection, second third metatarsal OM, Left foot ulcer Post-op diagnosis: same Procedure: Right foot debridement and irrigation with second, third metatarsal head resection Left foot ulcer debridement Anesthesia: DICK Surgeon: Nallely Gabriel Assessment and Plan - Assessment (1) Ulcer of left foot Code(s): L97.529 - Non-pressure chronic ulcer of other part of left foot with unspecified severity Status: Acute (2) Abscess of right foot Code(s): L02.611 - Cutaneous abscess of right foot Status: Acute (3) Osteomyelitis Code(s): M86.9 - Osteomyelitis, unspecified Status: Acute - Plan - plan for delayed primary closure tomorrow with Dr.Milliron Marek HENDERSON after midnight - consent to be signed on chart - NWBing RLE (3) Osteomyelitis Qualifiers: Osteomyelitis type: unspecified type Osteomyelitis location: foot Laterality : right Qualified Code(s): M86.9 - Osteomyelitis, unspecified
[2018-05-20] MEDS ORDERED: Chlorhexidine Gluconate 2% 1 Pack (2 Cloths) TOPICAL SCH (00:45)
[2018-05-20] MEDS ORDERED: Sodium Chlor 0.9% Inj 500 ML IV.SIG SCH (01:00)
[2018-05-20] MEDS: oxyCODONE/Acetaminophen 10/325 Tablet PO PRN ×3 (01:29→19:54)
[2018-05-20] MEDS: Piperacil/Tazo 3.375 GM Premix 50 ML IV.SIG SCH ×4 (05:21→22:19)
[2018-05-20] MEDS ORDERED: Pharmacy Ordered Lab Info OTHER ONE (05:45)
[2018-05-20 05:57] LABS: Vancomycin,Trough 20.3 mcg/mL (5.0-10.0)
[2018-05-20] MEDS: Vancomycin Inj 1,500 MG in Sodium Chlor 0.9% Inj 500 ML IV.SIG SCH ×2 (06:08→23:11)
[2018-05-20] MEDS: Lisinopril 20 MG Tablet PO SCH ×2 (09:05→22:20)
[2018-05-20] MEDS: amLODIPine 10 MG Tablet PO SCH (09:06)
[2018-05-20] MEDS: Loratadine 10 MG Tablet PO SCH (09:06)
[2018-05-20] MEDS: Senna/Docusate Sodium 8.6/50 MG Tablet PO SCH ×2 (09:06→22:20)
--- NOTE | 2018-05-20 09:54 | P.PNIM ---
Subjective Interval history: Ready for surgery today. Feels hungry wants to eat. Has been n.p.o. for surgery. Overall pain control. Physical Exam Vital signs: Vital Signs 05/19/18 12:00 05/19/18 16:00 05/19/18 20:00 Temperature 97.9 F 98.4 F Pulse Rate 63 69 70 Respiratory Rate 20 20 16 Blood Pressure 148/74 H 172/85 H 174/80 H Pulse Oximetry 95 94 L 95 05/20/18 00:00 05/20/18 04:00 05/20/18 09:18 Temperature 98 F 98.3 F Pulse Rate 65 70 Respiratory Rate 16 16 16 Blood Pressure 171/83 H 163/91 H Pulse Oximetry 93 L 93 L Intake & Output 05/19/18 05/20/18 05/20/18 18:59 06:59 18:59 Intake Total 3850 / 3850 1010 / 1010 Output Total 1150 / 1150 3750 / 3750 Balance 2700 / 2700 -2740 / -2740 Weight 122.1 kg 122.1 kg Intake: IV 3130 / 3130 50 / 50 NS Inj 1,000 ML @ 125 mls/hr IV 1999 / 1999 .CONT .Q8H [facility] Rx#:[id number] Zosyn 3.375 GM Premix 50 ML @ 100 / 100 50 / 50 100 mls/hr IV.SIG Q6H [facility] Rx#: [id number] Vancomycin Inj 1,500 MG In NS 1030 / 1030 Inj 500 ML @ 265 mls/hr IV.SIG Q12H [facility] Rx#:[id number] Oral 720 / 720 960 / 960 Output: Urine 1150 / 1150 3750 / 3750 Other: Date of Last Bowel Movement 05/17/18 # Bowel Movements 0 Narrative: GENERAL: This is a well-nourished, well-developed patient, in no apparent distress. CARDIOVASCULAR: Regular rate and rhythm RESPIRATORY: Clear to auscultation. Breath sounds equal bilaterally. No wheezes , rales, or rhonchi. GASTROINTESTINAL: Abdomen soft, non-tender, nondistended. Normal active bowel sounds MUSCULOSKELETAL: Bilateral feet bandage clean dry intact, wound VAC in place NEURO: Alert and oriented to person place and time. Moves all ext x4 SKIN: Erythematous plaque in the back trunk resolving and improving bilateral left and right feet dressed with Emeka bandage Results - Labs CBC & Chem 7: 05/18/18 04:00 05/20/18 05:10 Laboratory Results - last 24 hr 05/20/18 05:10 Creatinine 1.15 Estimated GFR 65 L Vancomycin Trough 20.3 H - Procedures 05/10 I&D dorsal and plantar surface right foot with Dr. Lopez Date of procedure: 05/13/18 Pre-op diagnosis: Right foot infection, second third metatarsal OM, Left foot ulcer Post-op diagnosis: same Procedure: Right foot debridement and irrigation with second, third metatarsal head resection Left foot ulcer debridement Anesthesia: DICK Surgeon: Nallely Gabriel Assessment and Plan - Assessment (1) Abscess of right foot Code(s): L02.611 - Cutaneous abscess of right foot Status: Acute (2) Osteomyelitis Code(s): M86.9 - Osteomyelitis, unspecified Status: Acute (3) Hypertension Code(s): I10 - Essential (primary) hypertension Status: Chronic - Plan Assessment/plan: 1. Sepsis with Right foot infection abscess status post right I&D dorsal and plantar surface on 05/[address] Lopez Continue postoperative care and wound care per Podiatry Status post operative day #7 (05/13) Right foot debridement and irrigation with second, third metatarsal head resection Left foot ulcer debridement with VAC placement with Dr. Nallely Gabriel For primary wound culture with Dr. Gillespie today MRI results reviewed Blood/wound cultures shows MRSA, group A beta strep and Enterbacter cloacae. Continue with IV vancomycin/Zosyn Infectious disease physician felt he may need IV antibiotics upon discharge await final recommendations. Likely IV rocephin and possible IV cubician for once daily infusion as patient only has outpatient infusion option due to payor source 2. Hypertension, chronic essential, not optimally controlled Continue home lisinopril and will increase dosing to 20 mg p.o. twice daily IV Vasotec as needed. We will also increase amlopine to 10 mg. Add clonidine to regimen 3. Hypokalemia Replete 4. Possible contact dermatitis of the back, improvingClaritin and 1% hydrocortisone cream, clinically improving 5. History of esophagitis, gastritis, GE ulcerresume home Protonix 5. DVT prophylaxisaspirin Discharge Planning: Home when cleared by podiatry. will need outpatient IV antibiotics (2) Osteomyelitis Qualifiers: Osteomyelitis type: unspecified type Osteomyelitis location: foot Laterality : right Qualified Code(s): M86.9 - Osteomyelitis, unspecified (3) Hypertension Qualifiers: Hypertension type: essential hypertension Qualified Code(s): I10 - Essential (primary) hypertension
[2018-05-20] MEDS: Hydrocortisone 1% Lotion 120 ML Bottle TOPICAL SCH ×2 (10:50→22:20)
[2018-05-20] MEDS: Sod Chloride 0.9% Inj 1,000 ML IV.CONT SCH ×3 (10:51→22:22)
[2018-05-20] MEDS ORDERED: Bupivacaine PF 0.25% Inj 30 ML Vial ONE (13:44)
[2018-05-20] MEDS ORDERED: *morphine SULFATE 10 MG/ML PERIprocedure ONLY ONE (16:24)
--- NOTE | 2018-05-20 16:24 | P.BOP ---
- Preoperative Diagnosis (1) Open wound of right foot except toes with complication (2) Abscess of right foot - Postoperative Diagnosis (1) Abscess of right foot (2) Open wound of right foot except toes with complication Date of procedure: 05/20/18 Procedure: I&D Right foot with delayed primary closure Irrigation with 3L Normal saline and debridement of nonviable tissue with #15 blade, curette, rongeur, followed by culture and delayed primary closure of plantar wound with 2-0 nylon and partial closure of dorsal wound with 2-0 nylon with 1/2'' iodoform gauze packing centrally. Dressing with 4x4, abd x 2, cast padding, jabier right foot. Nonweightbearing right foot. Will need daily packing to dorsal right foot per dressing orders. Will need follow up arranged at wound care center prior to discharge due to self -pay status. No further surgical intervention planned at this time. Podiatry Ok with discharge when wound care arranged. Anesthesia: MAC Surgeon: Bay Mandujano DPM Funnel Coater: staff Estimated blood loss (mL): 20 Pathology: other (culture right foot) Condition: stable Disposition: PACU
[2018-05-20] MEDS ORDERED: Lidocaine PF 1% Inj 5 ML Syringe INFILTRATN ONE (19:59)
[2018-05-21] MEDS: oxyCODONE/Acetaminophen 10/325 Tablet PO PRN ×4 (04:13→23:28)
[2018-05-21] MEDS: Sod Chloride 0.9% Inj 1,000 ML IV.CONT SCH ×3 (04:15→22:28)
[2018-05-21] MEDS: Piperacil/Tazo 3.375 GM Premix 50 ML IV.SIG SCH ×4 (04:15→23:28)
[2018-05-21] MEDS: Loratadine 10 MG Tablet PO SCH (09:31)
[2018-05-21] MEDS: amLODIPine 10 MG Tablet PO SCH (09:31)
[2018-05-21] MEDS: Vancomycin Inj 1,500 MG in Sodium Chlor 0.9% Inj 500 ML IV.SIG SCH ×2 (09:32→20:40)
[2018-05-21] MEDS: Lisinopril 20 MG Tablet PO SCH ×2 (09:32→20:39)
[2018-05-21] MEDS: Senna/Docusate Sodium 8.6/50 MG Tablet PO SCH ×2 (09:32→20:39)
[2018-05-21] MEDS: Hydrocortisone 1% Lotion 120 ML Bottle TOPICAL SCH ×2 (09:33→22:29)
--- NOTE | 2018-05-21 10:22 | P.PNIM ---
Subjective Interval history: Willing to go to outpatient infusion clinic and also wound care clinic. Pain overall control. Wants to get off the diabetic diet states that he is not a diabetic. Physical Exam Vital signs: Vital Signs 05/20/18 12:00 05/20/18 16:15 05/20/18 16:30 Temperature 97.5 F L Pulse Rate 71 70 67 Respiratory Rate 20 16 16 Blood Pressure 177/86 H 149/83 H 155/79 H Pulse Oximetry 95 95 95 05/20/18 16:45 05/20/18 20:00 05/21/18 00:00 Temperature 98.5 F 98.3 F Pulse Rate 68 72 72 Respiratory Rate 16 18 18 Blood Pressure 143/86 H 151/71 H 131/62 Pulse Oximetry 96 94 L 96 05/21/18 04:00 05/21/18 08:00 Temperature 98.6 F 98.1 F Pulse Rate 58 L 68 Respiratory Rate 18 17 Blood Pressure 123/77 155/76 H Pulse Oximetry 94 L 95 Intake & Output 05/20/18 05/21/18 05/21/18 18:59 06:59 18:59 Intake Total 2100 / 2100 2045 / 2045 Output Total 220 / 220 1500 / 1500 Balance 1880 / 1880 545 / 545 Weight 122.1 kg 118.9 kg Intake: IV 2099 / 2099 1565 / 1565 NS Inj 1,000 ML @ 125 mls/hr IV 2000 / 2000 1000 / 1000 .CONT .Q8H [facility] Rx#:[id number] Zosyn 3.375 GM Premix 50 ML @ 100 / 100 50 / 50 100 mls/hr IV.SIG Q6H [facility] Rx#: [id number] Vancomycin Inj 1,500 MG In NS 515 / 515 Inj 500 ML @ 265 mls/hr IV.SIG Q12H [facility] Rx#:[id number] Oral 480 / 480 Output: Urine 200 / 200 1500 / 1500 Estimated Blood Loss 20 / 20 Other: # Bowel Movements 0 Narrative: GENERAL: This is a well-nourished, well-developed patient, in no apparent distress. CARDIOVASCULAR: Regular rate and rhythm RESPIRATORY: Clear to auscultation. Breath sounds equal bilaterally. No wheezes , rales, or rhonchi. GASTROINTESTINAL: Abdomen soft, non-tender, nondistended. Normal active bowel sounds MUSCULOSKELETAL: Bilateral feet bandage clean dry intact, wound VAC in place NEURO: Alert and oriented to person place and time. Moves all ext x4 SKIN: Erythematous plaque in the back trunk resolving and improving bilateral left and right feet dressed with Emeka bandage Results - Labs CBC & Chem 7: 05/18/18 04:00 05/20/18 05:10 Microbiology 05/20/18 15:36 Wound - Foot Fungal Smear - Final No fungal elements seen 05/20/18 15:36 Wound - Foot Gram Stain - Final 05/13/18 15:44 Wound - Foot Fungal Smear - Final No fungal elements seen 05/13/18 15:44 Wound - Foot Fungal Culture - Preliminary No growth in 1 week 05/13/18 15:44 Wound - Foot Acid Fast Bacilli Smear - Final No acid fast bacilli seen 05/13/18 15:44 Wound - Foot Mycobacterial Culture - Preliminary No growth in 1 week - Procedures 05/10 I&D dorsal and plantar surface right foot with Dr. Lopez Date of procedure: 05/13/18 Pre-op diagnosis: Right foot infection, second third metatarsal OM, Left foot ulcer Post-op diagnosis: same Procedure: Right foot debridement and irrigation with second, third metatarsal head resection Left foot ulcer debridement Anesthesia: GONZALOA Surgeon: Nallely Gabriel 05/20 I&D Right foot with delayed primary closure with Dr. Auguste Assessment and Plan - Assessment (1) Abscess of right foot Code(s): L02.611 - Cutaneous abscess of right foot Status: Acute (2) Osteomyelitis Code(s): M86.9 - Osteomyelitis, unspecified Status: Acute (3) Hypertension Code(s): I10 - Essential (primary) hypertension Status: Chronic - Plan Assessment/plan: 1. Sepsis with Right foot infection abscess status post right I&D dorsal and plantar surface on 05/[address] Lopez Continue postoperative care and wound care per Podiatry Status post operative day #8 (05/13) Right foot debridement and irrigation with second, third metatarsal head resection Left foot ulcer debridement with VAC placement with Dr. Nallely Gabriel Status post operative day #1 (05/20) I&D Right foot with delayed primary closure with Dr. Mandujano -clear for discharge and nonweightbearing on the right foot. Wheelchair DME will be arranged for the patient prior to discharge. MRI results reviewed Blood/wound cultures shows MRSA, group A beta strep and Enterbacter cloacae. Continue with IV vancomycin/Zosyn Infectious disease physician felt he may need IV antibiotics upon discharge await final recommendations. Likely IV rocephin and possible IV cubician for once daily infusion as patient only has outpatient infusion option due to payor source per infectious disease physician. 2. Hypertension, chronic essential, not optimally controlled Continue home lisinopril and will increase dosing to 20 mg p.o. twice daily IV Vasotec as needed. We will also increase amlopine to 10 mg. Add clonidine to regimen 3. Hypokalemia Replete 4. Possible contact dermatitis of the back, improvingClaritin and 1% hydrocortisone cream, clinically improving 5. History of esophagitis, gastritis, GE ulcerresume home Protonix 5. DVT prophylaxisaspirin Discharge Planning: Discharge to home with outpatient IV infusion and wound care follow-up to be arranged along with obtaining a wheelchair DME. Anticipate likely in the morning if it can be arranged. (2) Osteomyelitis Qualifiers: Osteomyelitis type: unspecified type Osteomyelitis location: foot Laterality : right Qualified Code(s): M86.9 - Osteomyelitis, unspecified (3) Hypertension Qualifiers: Hypertension type: essential hypertension Qualified Code(s): I10 - Essential (primary) hypertension
--- NOTE | 2018-05-21 10:24 | P.DS ---
Date of admission: 05/11/18 03:08 Primary care physician: No Primary Care Physician Anticipated date of discharge: 05/22/18 Brief History from admission: 57-year-old male with a past medical history significant for hypertension and neuropathy presents to the emergency department for the evaluation of right foot pain and 5 days of fever/chills. The patient reports that he has pain with ambulation and initially noticed that his foot was swollen, red and draining purulent material when he took off his sock to get in the shower today. He denies chest pain or shortness of breath. No abdominal pain. No nausea/vomiting/diarrhea. No lateralizing signs/symptoms. DS: Diagnosis - Discharge Diagnosis (1) Sepsis affecting skin Status: Resolved (2) Abscess of right foot Status: Acute Diagnosis: Principal (3) Osteomyelitis Status: Acute Diagnosis: Principal (4) Hypertension Status: Chronic Diagnosis: Secondary DS: Medications - Discharge Medications Prescriptions: amlodipine [Norvasc] 10 mg PO DAILY #30 tab clonidine HCl [Catapres] 0.2 mg PO Q12HR #60 tab hydralazine 25 mg PO BID #60 tab lisinopril 20 mg PO BID #60 tab oxycodone-acetaminophen 1 tab PO Q6H PRN #28 tab PRN Reason: Acute Pain pantoprazole 40 mg PO DAILY #30 tab DS: Summary Hospital Course: These are the medical issues addressed during this hospitalization: 1. Sepsis with Right foot infection abscess status post right I&D dorsal and plantar surface on 05/[address] Paulino Continue postoperative care and wound care per Podiatry Status post operative day #8 (05/13) Right foot debridement and irrigation with second, third metatarsal head resection Left foot ulcer debridement with VAC placement with Dr. Nallely Gabriel Status post operative day #1 (05/20) I&D Right foot with delayed primary closure with Dr. Delbert dasilva for discharge and nonweightbearing on the right foot. Wheelchair DME will be arranged for the patient prior to discharge. MRI results reviewed Blood/wound cultures shows MRSA, group A beta strep and Enterbacter cloacae. Continue with IV vancomycin/Zosyn during the hospitalization Infectious disease physician felt he may need IV antibiotics upon discharge Likely IV rocephin and possible IV cubician for once daily infusion as patient only has outpatient infusion option due to payor source per infectious disease physician, Dr. Jolly Au. 2. Hypertension, chronic essential, not optimally controlled Continue home lisinopril and will increase dosing to 20 mg p.o. twice daily IV Vasotec as needed. We will also increase amlopine to 10 mg. Add clonidine to regimen 3. Hypokalemia Replete 4. Possible contact dermatitis of the back, improvingClaritin and 1% hydrocortisone cream, clinically improving 5. History of esophagitis, gastritis, GE ulcerresume home Protonix 5. DVT prophylaxisaspirin - Time Spent with Patient Total time spent providing and/or coordinating discharge services: Less than 30 minutes Exam Vital signs: Vital Signs 05/20/18 12:00 05/20/18 16:15 05/20/18 16:30 Temperature 97.5 F L Pulse Rate 71 70 67 Respiratory Rate 20 16 16 Blood Pressure 177/86 H 149/83 H 155/79 H Pulse Oximetry 95 95 95 05/20/18 16:45 05/20/18 20:00 05/21/18 00:00 Temperature 98.5 F 98.3 F Pulse Rate 68 72 72 Respiratory Rate 16 18 18 Blood Pressure 143/86 H 151/71 H 131/62 Pulse Oximetry 96 94 L 96 05/21/18 04:00 05/21/18 08:00 Temperature 98.6 F 98.1 F Pulse Rate 58 L 68 Respiratory Rate 18 17 Blood Pressure 123/77 155/76 H Pulse Oximetry 94 L 95 Intake & Output 05/20/18 05/21/18 05/21/18 18:59 06:59 18:59 Intake Total 2099 2045 / 204 Output Total 220 / 220 1500 / 1500 Balance 1880 / 1880 545 / 545 Weight 122.1 kg 118.9 kg Intake: IV 2099 1565 / 1565 NS Inj 1,000 ML @ 125 mls/hr IV 1999 / 1999 1000 / 1000 .CONT .Q8H [facility] Rx#:[id number] Zosyn 3.375 GM Premix 50 ML @ 100 / 100 50 / 50 100 mls/hr IV.SIG Q6H [facility] Rx#: [id number] Vancomycin Inj 1,500 MG In NS 515 / 515 Inj 500 ML @ 265 mls/hr IV.SIG Q12H [facility] Rx#:[id number] Oral 480 / 480 Output: Urine 200 / 200 1500 / 1500 Estimated Blood Loss Other: # Bowel Movements 0 Results Procedures completed during hospitalization: 05/10 I&D dorsal and plantar surface right foot with Dr. Paulino Date of procedure: 05/13/18 Pre-op diagnosis: Right foot infection, second third metatarsal OM, Left foot ulcer Post-op diagnosis: same Procedure: Right foot debridement and irrigation with second, third metatarsal head resection Left foot ulcer debridement Anesthesia: DICK Surgeon: Nallely Gabriel 05/20 I&D Right foot with delayed primary closure with Dr. Auguste Labs on day of discharge: Preliminary micro results at discharge 05/13/18 15:44 Fungal Culture - Preliminary Wound - Foot No growth in 1 week 05/13/18 15:44 Mycobacterial Culture - Preliminary Wound - Foot No growth in 1 week 05/11/18 18:18 Mycobacterial Culture - Preliminary Wound - Foot No growth in 1 week 05/11/18 18:18 Fungal Culture - Preliminary Wound - Foot No growth in 1 week - Impressions ITS Impressions Chest X-Ray 05/10/18 21:36 CONCLUSION: The lungs are clear. Foot MRI 05/11/18 00:00 CONCLUSION: 1. Significant degenerative change within multiple joints with subarticular cystic formation and marrow edema as above. 2. Extensive degenerative edema involving the patient's foot diffusely with focal areas of somewhat limited tracking within the subcutaneous tissues particularly dorsally at the level of the distal third and fourth metatarsals, however no definite abscess is identified. 3. Nonspecific edema of the third distal metatarsal bone and calcaneus. Foot X-Ray 05/13/18 00:00 CONCLUSION: Postoperative deformity of the right forefoot following second and third toe amputations. Discharge Plan - Discharge Disposition Patient Disposition: Discharge Home - Discharge Condition Condition: Good - Discharge Order Discharge Orders: Discharge Order (Routine); Ordered 05/24/18 Ordered By: Saundra Villegas - Discharge Details Anticipated Discharge Date: 05/24/18 - Physicians Team Primary Care Provider: Primary Care Physici,Jojo Attending Provider: Vanessa Dacosta Other Providers: Chaitanya Paulino DPM ; Adelita Au MD
[2018-05-21] MEDS ORDERED: Heparin Central Flush 100 UNIT/ML 5 ML Vial IV.FLUSH PRN (13:13)
[2018-05-22] MEDS: oxyCODONE/Acetaminophen 10/325 Tablet PO PRN ×3 (06:17→19:13)
[2018-05-22] MEDS: Piperacil/Tazo 3.375 GM Premix 50 ML IV.SIG SCH ×4 (06:17→23:33)
[2018-05-22] MEDS: Sod Chloride 0.9% Inj 1,000 ML IV.CONT SCH ×3 (06:42→20:11)
[2018-05-22] MEDS: Lisinopril 20 MG Tablet PO SCH ×2 (09:15→20:08)
[2018-05-22] MEDS: Vancomycin Inj 1,500 MG in Sodium Chlor 0.9% Inj 500 ML IV.SIG SCH ×2 (09:16→20:11)
[2018-05-22] MEDS: amLODIPine 10 MG Tablet PO SCH (09:16)
[2018-05-22] MEDS: Senna/Docusate Sodium 8.6/50 MG Tablet PO SCH ×2 (09:16→20:08)
[2018-05-22] MEDS: Heparin Central Flush 100 UNIT/ML 5 ML Vial IV.FLUSH SCH (09:18)
--- NOTE | 2018-05-22 12:58 | P.PNIM ---
Subjective Interval history: Pt seen and examined for f/u right foot abscess. AFVSS. No acute events overnight. Reports feeling frustrated that he is not able to be discharged this weekend but understands that he needs insurance authorization for wound care. He has no complaints. Pain is well-controlled. He hasn't moved his bowels in three days but states that's normal for him. Denies feeling abdominal discomfort. Passing gas. Denies CP, SOB. Physical Exam Vital signs: Vital Signs 05/21/18 16:00 05/21/18 20:00 05/22/18 00:00 Temperature 98.0 F 99.3 F 98.3 F Pulse Rate 63 65 58 L Respiratory Rate 17 17 19 Blood Pressure 143/69 H 154/78 H 150/70 H Pulse Oximetry 93 L 96 98 05/22/18 04:00 05/22/18 08:00 Temperature 98.9 F 97.8 F Pulse Rate 62 72 Respiratory Rate 16 17 Blood Pressure 148/70 H 171/79 H Pulse Oximetry 16 L 95 Intake & Output 05/21/18 05/22/18 05/22/18 18:59 06:59 18:59 Intake Total 2865 / 2865 1615 / 1615 Output Total 1350 / 1350 850 / 850 Balance 1515 / 1515 765 / 765 Weight 122 kg Intake: IV 1615 / 1615 1615 / 1615 NS Inj 1,000 ML @ 125 mls/hr IV 1000 / 1000 1000 / 1000 .CONT .Q8H [facility] Rx#:[id number] Zosyn 3.375 GM Premix 50 ML @ 100 / 100 100 / 100 100 mls/hr IV.SIG Q6H [facility] Rx#: [id number] Vancomycin Inj 1,500 MG In NS 515 / 515 515 / 515 Inj 500 ML @ 265 mls/hr IV.SIG Q12H [facility] Rx#:[id number] Oral 1250 / 1250 Output: Urine 1350 / 1350 850 / 850 Other: Date of Last Bowel Movement 05/20/18 # Bowel Movements 0 Narrative: GENERAL: WN, WD male resting in bed in NAD. SKIN: Warm and dry. HEENT: AT/NC. Pupils equal and round. MMM. NECK: Supple no tender LAD or JVD. HEART: RRR no m/r/g. LUNGS: CTAB without wheezes or crackles. ABDOMEN: +BS, soft, NT, ND. EXTREMITIES: B/L feet dressed with PARTH wraps. NEURO: Awake and alert. Nonfocal. PSYCH: Appropriate mood and affect. Results - Labs CBC & Chem 7: 05/18/18 04:00 05/22/18 06:10 Laboratory Results - last 24 hr 05/22/18 06:10 Creatinine 1.21 Estimated GFR 61 L Microbiology 05/20/18 15:36 Wound - Foot Gram Stain - Final 05/20/18 15:36 Wound - Foot Wound Culture - Preliminary gram positive cocci 05/20/18 15:36 Wound - Foot Acid Fast Bacilli Smear - Final No acid fast bacilli seen - Procedures 05/10 I&D dorsal and plantar surface right foot with Dr. Lopez Date of procedure: 05/13/18 Pre-op diagnosis: Right foot infection, second third metatarsal OM, Left foot ulcer Post-op diagnosis: same Procedure: Right foot debridement and irrigation with second, third metatarsal head resection Left foot ulcer debridement Anesthesia: GETA Surgeon: Nallely Gabriel 05/20 I&D Right foot with delayed primary closure with Dr. Auguste Assessment and Plan - Assessment (1) Sepsis affecting skin Code(s): A41.9 - Sepsis, unspecified organism Status: Resolved (2) Abscess of right foot Code(s): L02.611 - Cutaneous abscess of right foot Status: Acute (3) Osteomyelitis Code(s): M86.9 - Osteomyelitis, unspecified Status: Acute (4) Hypertension Code(s): I10 - Essential (primary) hypertension Status: Chronic - Plan 57 YOWM with history of HTN and neuropathy admitted on 05/11 for R foot abscess. 1. R foot abscess/cellulitis/osteomyelitis, L foot ulcer - Blood/wound cultures shows MRSA, group A beta strep and Enterbacter cloacae - Podiatry following - S/p I&D dorsal and plantar surface on 05/[address] Lopez - S/p R foot debridement and irrigation with second, third metatarsal head resection as well as left foot ulcer debridement on 05/[address] Gabriel - S/p I&D R foot on 05/20 with delayed primary closure with Dr. Mandujano - NWB R foot - Wheelchair on discharge - Cleared per podiatry - ID following, likely IV Rocephin and possible IV Cubicin for once daily infusion as patient only has outpatient infusion option due to payor source per infectious disease physician 2. Hypertension - BPs still elevated - Increase clonidine to 0.2 mg PO BID - Continue Lisinopril and amlodipine - Vasotec PRN 3. Possible contact dermatitis of the back - Improving - Continue Claritin and 1% hydrocortisone cream 4. History of esophagitis, gastritis - Continue PPI DVT prophylaxis: Heparin Code Status: FULL Discussed Condition With: The patient Discharge Planning: Clear for D/C, awaiting insurance auth for wound care (3) Osteomyelitis Qualifiers: Osteomyelitis type: unspecified type Osteomyelitis location: foot Laterality : right Qualified Code(s): M86.9 - Osteomyelitis, unspecified (4) Hypertension Qualifiers: Hypertension type: essential hypertension Qualified Code(s): I10 - Essential (primary) hypertension
[2018-05-22] MEDS: Hydrocortisone 1% Lotion 120 ML Bottle TOPICAL SCH ×2 (16:41→20:09)
--- NOTE | 2018-05-22 20:07 | P.PNPOD ---
Review of Systems All other systems reviewed negative except as stated in HPI Physical Exam Vital signs: Vital Signs 05/22/18 00:00 05/22/18 04:00 05/22/18 08:00 Temperature 98.3 F 98.9 F 97.8 F Pulse Rate 58 L 62 72 Respiratory Rate 19 16 17 Blood Pressure 150/70 H 148/70 H 171/79 H Pulse Oximetry 98 16 L 95 05/22/18 12:00 05/22/18 16:00 Temperature Pulse Rate 60 67 Respiratory Rate 20 17 Blood Pressure 149/70 H 174/78 H Pulse Oximetry 95 95 Intake & Output 05/22/18 05/22/18 05/23/18 06:59 18:59 06:59 Intake Total 1615 / 1615 4265 / 4265 Output Total 850 / 850 870 / 870 Balance 765 / 765 3395 / 3395 Weight 122 kg Intake: IV 1615 / 1615 565 / 565 NS Inj 1,000 ML @ 125 mls/hr IV 1000 / 1000 .CONT .Q8H [facility] Rx#:[id number] Zosyn 3.375 GM Premix 50 ML @ 100 / 100 50 / 50 100 mls/hr IV.SIG Q6H [facility] Rx#: [id number] Vancomycin Inj 1,500 MG In NS 515 / 515 515 / 515 Inj 500 ML @ 265 mls/hr IV.SIG Q12H [facility] Rx#:[id number] Oral 1250 / 1250 Anesthesia Amount 750 / 750 Other 1700 / 1700 Output: Urine 850 / 850 850 / 850 Estimated Blood Loss 20 / 20 Other: Mode Setting Right Foot Continuous Other Intake Source Saline Solution # Voids 2 Date of Last Bowel Movement 05/20/18 05/20/18 # Bowel Movements 0 Medications and Allergies Active Medications: Active Medications Acetaminophen (Tylenol) 650 mg PO Q4H PRN PRN Reason: FEVER > 100.4 F Last Admin: 05/16/18 20:54 Dose: 650 mg Al Hydroxide/Mg Hydroxide (Milk Of Magnesia Liq) 30 ml PO Q12H PRN PRN Reason: Mild Constipation Amlodipine Besylate (Norvasc) 10 mg PO DAILY [facility] Last Admin: 05/22/18 09:16 Dose: 10 mg Aspirin (Aspirin) 325 mg PO DAILY [facility] Last Admin: 05/19/18 08:12 Dose: 325 mg Bisacodyl (Dulcolax Supp) 10 mg RECTAL DAILY PRN PRN Reason: SEVERE CONSITIPATION Chlorhexidine Gluconate (Chlorhexidine 2% Cloth) 3 pack TOPICAL DIAGNOSTIC ASSISTANT [facility] Stop: 05/23/18 00:33 Clonidine HCl (Catapres) 0.2 mg PO Q12HR [facility] Enalaprilat (Vasotec Inj) 1.25 mg IV.PUSH Q6H PRN PRN Reason: SEE LABEL COMMENTS Last Admin: 05/17/18 00:37 Dose: 1.25 mg Heparin Sodium (Porcine) (Heparin Central Flush) 0 unit IV.FLUSH PRN PRN PRN Reason: Flush PICC Line Heparin Sodium (Porcine) (Heparin Central Flush) 0 unit IV.FLUSH DAILY [facility] Last Admin: 05/22/18 09:18 Dose: 200 unit Heparin Sodium (Porcine) (Heparin Inj) 5,000 units SQ Q12HR [facility] Hydrocortisone Acetate (Hydrocortisone 1% Lotion) 1 applicatio TOPICAL BID [facility] Last Admin: 05/22/18 16:41 Dose: 1 applicatio Sodium Chloride (Ns Inj) 500 mls @ 30 mls/hr IV.SIG .Q10H [facility] Stop: 05/23/18 00:33 Vancomycin HCl 1,500 mg/ (Sodium Chloride) 515 mls @ 265 mls/hr IV.SIG Q12H [facility] Last Infusion: 05/22/18 10:35 Dose: Infused Sodium Chloride (Ns Inj) 1,000 mls @ 125 mls/hr IV.CONT .Q8H [facility] Last Admin: 05/22/18 06:42 Dose: Not Given Pharmacy Profile Note (Vancomycin Consult Pharmacy) 0 mls @ 0 mls/hr OTHER [facility], [facility] Piperacillin/Tazobactam/Dextrose (Zosyn 3.375 Gm Premix) 50 mls @ 100 mls/hr IV.SIG Q6H [facility] Last Admin: 05/22/18 18:23 Dose: 100 mls/hr Lactulose (Lactulose Liq) 30 ml PO DAILY PRN PRN Reason: SEVERE CONSITIPATION Lisinopril (Prinivil) 20 mg PO BID [facility] Last Admin: 05/22/18 09:15 Dose: 20 mg Miscellaneous Information ([facility] Ordered Lab Info) 0 each OTHER ONCE ONE Stop: 05/23/18 08:46 Morphine Sulfate (Morphine Inj) 2 mg IV.PUSH Q3H PRN PRN Reason: PAIN 3-5; IF UABLE TO TAKE PO Morphine Sulfate (Morphine Inj) 4 mg IV.PUSH Q3H PRN PRN Reason: PAIN 6-10;IF UNABLE TO TAKE PO Morphine Sulfate (Morphine Inj) 4 mg IV.PUSH Q3H PRN PRN Reason: BREAKTHROUGH PAIN Naloxone HCl (Narcan Inj) 0.4 mg IV.PUSH UNSCH PRN PRN Reason: SEE LABEL COMMENTS Ondansetron HCl (Zofran Inj) 4 mg IV.PUSH Q6H PRN PRN Reason: NAUSEA OR VOMITING Oxycodone/Acetaminophen (Percocet 10/325 Mg) 1 tab PO Q6H PRN PRN Reason: PAIN SCALE 6 TO 10 Last Admin: 05/22/18 19:13 Dose: 1 tab Oxycodone/Acetaminophen (Percocet 5/325 Mg) 1 tab PO Q6H PRN PRN Reason: PAIN SCALE 3 TO 5 Pantoprazole Sodium (Protonix) 40 mg PO DAILY [facility] Last Admin: 05/22/18 09:16 Dose: 40 mg Povidone Iodine (Betadine 5% Antisepsis Kit) 1 applicatio EACH NARE DIAGNOSTIC ASSISTANT [facility] Stop: 05/23/18 00:33 Senna/Docusate Sodium (Aubree-Colace) 1 tab PO BID [facility] Last Admin: 05/22/18 09:16 Dose: 1 tab Sennosides (Senokot) 17.2 mg PO Q12H PRN PRN Reason: Moderate Constipation Sodium Chloride (Ns Flush) 0 ml IV.FLUSH DAILY [facility] Last Admin: 05/22/18 16:42 Dose: 2 ml Sodium Chloride (Ns Flush) 0 ml IV.FLUSH PRN PRN PRN Reason: FLUSH AFTER USING IV ACCESS Sodium Chloride (Ns Flush) 0 ml IV.FLUSH PRN PRN PRN Reason: Flush After Blood Draws Sodium Chloride (Ns Flush) 2 ml IV.FLUSH BID [facility] Last Admin: 05/22/18 16:42 Dose: Not Given Sodium Chloride (Ns Flush) 2 ml IV.FLUSH PRN PRN PRN Reason: FLUSH AFTER USING IV ACCESS Last Admin: 05/20/18 09:07 Dose: 2 ml Temazepam (Restoril) 15 mg PO HS PRN PRN Reason: INSOMNIA Last Admin: 05/15/18 23:30 Dose: 15 mg Allergies Allergy/AdvReac Type Severity Reaction Status Date / Time No Known Allergies Allergy Verified 05/11/18 06:14 Results - Labs CBC & Chem 7: 05/18/18 04:00 05/22/18 06:10 Laboratory Results - last 24 hr 05/22/18 06:10 Creatinine 1.21 Estimated GFR 61 L Microbiology 05/20/18 15:36 Wound - Foot Gram Stain - Final 05/20/18 15:36 Wound - Foot Wound Culture - Preliminary gram positive cocci - Procedures 05/10 I&D dorsal and plantar surface right foot with Dr. Lopez Date of procedure: 05/13/18 Pre-op diagnosis: Right foot infection, second third metatarsal OM, Left foot ulcer Post-op diagnosis: same Procedure: Right foot debridement and irrigation with second, third metatarsal head resection Left foot ulcer debridement Anesthesia: DICK Surgeon: Nallely Gabriel 05/20 I&D Right foot with delayed primary closure with Dr. Auguste Assessment and Plan - Assessment (1) Abscess of right foot Code(s): L02.611 - Cutaneous abscess of right foot Status: Acute (2) Open wound of right foot except toes with complication Code(s): S91.301A - Unspecified open wound, right foot, initial encounter Status: Acute Plan: Continue nonweightbearing to right forefoot. Follow up with Dr Gabriel in 1 week after discharge.
[2018-05-22] MEDS: Heparin - SQ 10,000 UNITS/ML Vial SQ SCH (20:08)
[2018-05-23] MEDS: oxyCODONE/Acetaminophen 10/325 Tablet PO PRN ×4 (02:10→20:26)
[2018-05-23] MEDS: Piperacil/Tazo 3.375 GM Premix 50 ML IV.SIG SCH ×4 (05:38→23:09)
[2018-05-23] MEDS ORDERED: Pharmacy Ordered Lab Info OTHER ONE (08:45)
[2018-05-23] MEDS: amLODIPine 10 MG Tablet PO SCH (08:59)
[2018-05-23] MEDS: Senna/Docusate Sodium 8.6/50 MG Tablet PO SCH ×2 (08:59→20:28)
[2018-05-23] MEDS: Lisinopril 20 MG Tablet PO SCH ×2 (09:00→20:27)
[2018-05-23] MEDS: Heparin - SQ 10,000 UNITS/ML Vial SQ SCH ×2 (09:02→20:26)
[2018-05-23] MEDS: Vancomycin Inj 1,500 MG in Sodium Chlor 0.9% Inj 500 ML IV.SIG SCH (09:02)
[2018-05-23 09:44] LABS: Hematocrit 27.6 % (39.0-51.0); Hemoglobin 9.2 gm/dL (13.0-17.0); Mean Corpuscular HGB Conc 33.4 % (32.0-36.0); Mean Corpuscular Volume 86.7 fL (80.0-100.0); Mean Platelet Volume 6.7 fL (7.0-11.0); Platelet Count 381 th/mm3 (150-450); Red Blood Count 3.19 mil/mm3 (4.50-5.90); Red Cell Distribution Width 15.1 % (11.6-17.2); White Blood Count 7.8 th/mm3 (4.0-11.0)
[2018-05-23 10:07] LABS: Calcium 8.7 mg/dL (8.5-10.1); Carbon Dioxide 30.2 meq/L (21.0-32.0); Potassium 3.7 meq/L (3.5-5.1)
[2018-05-23] MEDS: Heparin Central Flush 100 UNIT/ML 5 ML Vial IV.FLUSH SCH (12:13)
[2018-05-23] MEDS: Hydrocortisone 1% Lotion 120 ML Bottle TOPICAL SCH ×2 (12:14→20:27)
[2018-05-23] MEDS: Sod Chloride 0.9% Inj 1,000 ML IV.CONT SCH ×3 (12:41→20:27)
--- NOTE | 2018-05-23 14:27 | P.PNIM ---
Subjective Interval history: Pt seen and examined for f/u of R foot infection. BPs continue to run high. He has no complaints and reports he is doing well. Denies CP, SOB, abdominal pain, N/V. Tolerating PO. Looking forward to hopefully being discharged tomorrow. Physical Exam Vital signs: Vital Signs 05/22/18 16:00 05/22/18 20:00 05/23/18 00:00 Temperature 98.6 F 97.3 F L Pulse Rate 67 75 61 Respiratory Rate 17 20 20 Blood Pressure 174/78 H 182/87 H 143/78 H Pulse Oximetry 95 95 96 05/23/18 04:00 05/23/18 08:00 05/23/18 09:30 Temperature 97.5 F L 97.9 F Pulse Rate 60 60 Respiratory Rate 20 20 20 Blood Pressure 143/87 H 166/92 H Pulse Oximetry 95 96 Intake & Output 05/22/18 05/23/18 05/23/18 18:59 06:59 18:59 Intake Total 4315 / 4315 855 / 855 Output Total 870 / 870 2300 / 2300 Balance 3445 / 3445 -1445 / -1445 Weight 122.5 kg Intake: IV 615 / 615 615 / 615 Zosyn 3.375 GM Premix 50 ML @ 100 / 100 100 / 100 100 mls/hr IV.SIG Q6H [facility] Rx#: [id number] Vancomycin Inj 1,500 MG In NS 515 / 515 515 / 515 Inj 500 ML @ 265 mls/hr IV.SIG Q12H [facility] Rx#:[id number] Oral 1250 / 1250 240 / 240 Anesthesia Amount 750 / 750 Other 1700 / 1700 Output: Urine 850 / 850 2300 / 2300 Estimated Blood Loss 20 / 20 Other: Mode Setting Right Foot Continuous Other Intake Source Saline Solution # Voids 2 Date of Last Bowel Movement 05/20/18 05/20/18 # Bowel Movements 0 Results - Labs CBC & Chem 7: 05/23/18 09:15 05/23/18 09:15 Laboratory Results - last 24 hr 05/23/18 05/23/18 05/23/18 09:15 09:15 09:15 WBC 7.8 RBC 3.19 L Hgb 9.2 L Hct 27.6 L MCV 86.7 MCH 29.0 MCHC 33.4 RDW 15.1 Plt Count 381 MPV 6.7 L Sodium 141 Potassium 3.7 Chloride 106 Carbon Dioxide 30.2 Anion Gap 5 BUN 12 Creatinine 1.19 Estimated GFR 63 L Random Glucose 87 Calcium 8.7 Vancomycin Trough 23.6 H Microbiology 05/20/18 15:36 Wound - Foot Gram Stain - Final 05/20/18 15:36 Wound - Foot Wound Culture - Preliminary S. aureus MRSA - Procedures 05/10 I&D dorsal and plantar surface right foot with Dr. Lopez Date of procedure: 05/13/18 Pre-op diagnosis: Right foot infection, second third metatarsal OM, Left foot ulcer Post-op diagnosis: same Procedure: Right foot debridement and irrigation with second, third metatarsal head resection Left foot ulcer debridement Anesthesia: GONZALOA Surgeon: Nallely Gabriel 05/20 I&D Right foot with delayed primary closure with Dr. Auguste Assessment and Plan - Assessment (1) Sepsis affecting skin Code(s): A41.9 - Sepsis, unspecified organism Status: Resolved (2) Abscess of right foot Code(s): L02.611 - Cutaneous abscess of right foot Status: Acute (3) Osteomyelitis Code(s): M86.9 - Osteomyelitis, unspecified Status: Acute (4) Hypertension Code(s): I10 - Essential (primary) hypertension Status: Chronic - Plan 57 YOWM with history of HTN and neuropathy admitted on 05/11 for R foot abscess. 1. R foot abscess/cellulitis/osteomyelitis, L foot ulcer -Wound cultures shows MRSA, group A beta strep and Enterbacter cloacae - Blood cultures NGTD - Podiatry following - S/p I&D dorsal and plantar surface on 05/[address] Lopez - S/p R foot debridement and irrigation with second, third metatarsal head resection as well as left foot ulcer debridement on 05/[address] Gabriel - S/p I&D R foot on 05/20 with delayed primary closure with Dr. Mandujano - NWB R foot - Wheelchair on discharge - Cleared per podiatry - ID following, likely IV Rocephin and possible IV Cubicin for once daily infusion as patient only has outpatient infusion option due to payor source per infectious disease physician 2. Hypertension - BPs still elevated - Increased clonidine to 0.2 mg PO BID - Continue Lisinopril and amlodipine (both at max doses) - Add hydralazine 25 mg PO BID - Vasotec PRN - Continue to monitor 3. Possible contact dermatitis of the back - Improving - Continue Claritin and 1% hydrocortisone cream 4. History of esophagitis, gastritis - Continue PPI DVT prophylaxis: Heparin Discharge Planning: Clear for D/C, awaiting insurance auth for wound care (3) Osteomyelitis Qualifiers: Osteomyelitis type: unspecified type Osteomyelitis location: foot Laterality : right Qualified Code(s): M86.9 - Osteomyelitis, unspecified (4) Hypertension Qualifiers: Hypertension type: essential hypertension Qualified Code(s): I10 - Essential (primary) hypertension
[2018-05-23] MEDS: hydrALAZINE 25 MG Tablet PO SCH (20:27)
[2018-05-24] MEDS: oxyCODONE/Acetaminophen 10/325 Tablet PO PRN ×3 (05:40→18:10)
[2018-05-24] MEDS: Piperacil/Tazo 3.375 GM Premix 50 ML IV.SIG SCH (05:41)
[2018-05-24] MEDS: Sod Chloride 0.9% Inj 1,000 ML IV.CONT SCH (05:42)
[2018-05-24 06:27] LABS: Vancomycin,Random 18.4 Comment
--- NOTE | 2018-05-24 08:50 | P.PNIM ---
Subjective Interval history: Pt seen and examined for f/u of bilateral foot infection and wounds. AFVSS. No acute events overnight. Low-grade temp of 100.2 overnight but has been afebrile since. Patient asymptomatic. Pain well-controlled. Denies cough, SOB, CP, abdominal pain, N/V, dysuria. Wants to go home today and reports he is feeling great. Physical Exam Vital signs: Vital Signs 05/23/18 09:30 05/23/18 12:00 05/23/18 16:00 Temperature 97.7 F Pulse Rate 60 66 Respiratory Rate 20 20 20 Blood Pressure 158/89 H 159/90 H Pulse Oximetry 97 96 05/23/18 16:56 05/23/18 20:00 05/24/18 00:00 Temperature 100.2 F H 98.3 F Pulse Rate 68 61 Respiratory Rate 20 18 18 Blood Pressure 161/78 H 137/68 Pulse Oximetry 95 95 05/24/18 04:00 Temperature 98.4 F Pulse Rate 53 L Respiratory Rate 17 Blood Pressure 133/65 Pulse Oximetry 95 Intake & Output 05/23/18 05/24/18 05/24/18 18:59 06:59 18:59 Intake Total 1010 / 1010 375 / 375 Output Total 1550 / 1550 960 / 960 Balance -540 / -540 -585 / -585 Weight 121.4 kg Intake: IV 50 / 50 100 / 100 Zosyn 3.375 GM Premix 50 ML @ 50 / 50 100 / 100 100 mls/hr IV.SIG Q6H [facility] Rx#: [id number] Oral 960 / 960 275 / 275 Output: Urine 1550 / 1550 960 / 960 Other: Date of Last Bowel Movement 05/20/18 Narrative: GENERAL: WN, WD male resting in bed in NAD. SKIN: Warm and dry. HEENT: AT/NC. Pupils equal and round. MMM. NECK: Supple no tender LAD or JVD. HEART: RRR no m/r/g. LUNGS: CTAB without wheezes or crackles. ABDOMEN: +BS, soft, NT, ND. EXTREMITIES: B/L feet dressed with PARTH wraps. NEURO: Awake and alert. Nonfocal. PSYCH: Appropriate mood and affect. Results - Labs CBC & Chem 7: 05/23/18 09:15 05/24/18 05:48 Laboratory Results - last 24 hr 05/23/18 05/23/18 05/23/18 09:15 09:15 09:15 WBC 7.8 RBC 3.19 L Hgb 9.2 L Hct 27.6 L MCV 86.7 MCH 29.0 MCHC 33.4 RDW 15.1 Plt Count 381 MPV 6.7 L Sodium 141 Potassium 3.7 Chloride 106 Carbon Dioxide 30.2 Anion Gap 5 BUN 12 Creatinine 1.19 Estimated GFR 63 L Random Glucose 87 Calcium 8.7 Vancomycin Trough 23.6 H Random Vancomycin 05/24/18 05:48 WBC RBC Hgb Hct MCV MCH MCHC RDW Plt Count MPV Sodium Potassium Chloride Carbon Dioxide Anion Gap BUN Creatinine 1.24 Estimated GFR 60 L Random Glucose Calcium Vancomycin Trough Random Vancomycin 18.4 Microbiology 05/20/18 15:36 Wound - Foot Gram Stain - Final 05/20/18 15:36 Wound - Foot Wound Culture - Preliminary S. aureus MRSA - Procedures 05/10 I&D dorsal and plantar surface right foot with Dr. Lopez Date of procedure: 05/13/18 Pre-op diagnosis: Right foot infection, second third metatarsal OM, Left foot ulcer Post-op diagnosis: same Procedure: Right foot debridement and irrigation with second, third metatarsal head resection Left foot ulcer debridement Anesthesia: DICK Surgeon: Nallely Gabriel 05/20 I&D Right foot with delayed primary closure with Dr. Auguste Assessment and Plan - Assessment (1) Sepsis affecting skin Code(s): A41.9 - Sepsis, unspecified organism Status: Resolved (2) Abscess of right foot Code(s): L02.611 - Cutaneous abscess of right foot Status: Acute (3) Osteomyelitis Code(s): M86.9 - Osteomyelitis, unspecified Status: Acute (4) Hypertension Code(s): I10 - Essential (primary) hypertension Status: Chronic - Plan 57 YOWM with history of HTN and neuropathy admitted on 05/11 for R foot abscess. 1. R foot abscess/cellulitis/osteomyelitis, L foot ulcer - Wound cultures shows MRSA, group A beta strep and Enterbacter cloacae - Blood cultures NGTD - Podiatry following - S/p I&D dorsal and plantar surface on 05/[address] Lopez - S/p R foot debridement and irrigation with second, third metatarsal head resection as well as left foot ulcer debridement on 05/[address] Gabriel - S/p I&D R foot on 05/20 with delayed primary closure with Dr. Mandujano - SPARKLE R foot - Wheelchair on discharge - Cleared per podiatry - ID following, post-hospital infusion therapy form filled out for Daptomycin and Rocephin through 06/23 - Authorization needed for patient assistance to go to wound clinic 2. Hypertension - BPs improved this morning - Continue clonidine 0.2 mg PO BID - Continue Lisinopril and amlodipine (both at max doses) - Continue hydralazine 25 mg PO BID - Vasotec PRN - Continue to monitor 3. Possible contact dermatitis of the back - Improving - Continue Claritin and 1% hydrocortisone cream 4. History of esophagitis, gastritis - Continue PPI DVT prophylaxis: Heparin while inpatient Discussed Condition With: The patient Discharge Planning: Clear for D/C, awaiting patient assistance auth for wound care - Attending Attestation [employer] Prescription Drug Monitoring Database has been queried and verified prior to prescribing the controlled subsection. Patient is having significant pain caused by right foot infection and abscess which will last more than 3 days. Trial of alternative treatment options other than prescribed opioids has not helped. I believe that it is medically necessary to treat the patients pain because it is affecting patients ability to sleep and perform activities of daily living. (3) Osteomyelitis Qualifiers: Osteomyelitis type: unspecified type Osteomyelitis location: foot Laterality : right Qualified Code(s): M86.9 - Osteomyelitis, unspecified (4) Hypertension Qualifiers: Hypertension type: essential hypertension Qualified Code(s): I10 - Essential (primary) hypertension
[2018-05-24] MEDS: Heparin - SQ 10,000 UNITS/ML Vial SQ SCH (09:05)
[2018-05-24] MEDS: hydrALAZINE 25 MG Tablet PO SCH (09:05)
[2018-05-24] MEDS: Senna/Docusate Sodium 8.6/50 MG Tablet PO SCH (09:05)
[2018-05-24] MEDS: Lisinopril 20 MG Tablet PO SCH (09:05)
[2018-05-24] MEDS: amLODIPine 10 MG Tablet PO SCH (09:05)
[2018-05-24 10:15] VITALS: RESP 18
[2018-05-24] MEDS ORDERED: Vancomycin Inj 1,500 MG in Sodium Chlor 0.9% Inj 500 ML IV.SIG SCH (14:00)
--- NOTE | 2018-05-24 16:39 | P.DS ---
Date of admission: 05/11/18 03:08 Primary care physician: No Primary Care Physician Attending physician on discharge: Vanessa Dacosta Anticipated date of discharge: 05/24/18 Brief History from admission: 57-year-old male with a past medical history significant for hypertension and neuropathy presents to the emergency department for the evaluation of right foot pain and 5 days of fever/chills. The patient reports that he has pain with ambulation and initially noticed that his foot was swollen, red and draining purulent material when he took off his sock to get in the shower today. He denies chest pain or shortness of breath. No abdominal pain. No nausea/vomiting/diarrhea. No lateralizing signs/symptoms. DS: Diagnosis - Discharge Diagnosis (1) Sepsis affecting skin Status: Resolved (2) Abscess of right foot Status: Acute (3) Osteomyelitis Status: Acute (4) Hypertension Status: Chronic DS: Medications - Discharge Medications Prescriptions: amlodipine [Norvasc] 10 mg PO DAILY #30 tab clonidine HCl [Catapres] 0.2 mg PO Q12HR #60 tab hydralazine 25 mg PO BID #60 tab lisinopril 20 mg PO BID #60 tab oxycodone-acetaminophen 1 tab PO Q6H PRN #28 tab PRN Reason: Acute Pain pantoprazole 40 mg PO DAILY #30 tab DS: Summary Hospital Course: 57 YOWM with history of HTN and neuropathy admitted on 05/11 for R foot abscess. - Wound cultures showed MRSA, group A beta strep and Enterbacter cloacae - Blood cultures negative - Podiatry consulted and patient underwent following procedures: * I&D dorsal and plantar surface on 05/[address] Paulino * R foot debridement and irrigation with second, third metatarsal head resection as well as left foot ulcer debridement on 05/[address] Gabriel * I&D R foot on 05/20 with delayed primary closure with Dr. Mandujano - ID was also consulted who recommended IV treatment with Daptomycin and Rocephin through 06/23 The patient was cleared for discharge on 05/21 but unfortunately had to wait over the weekend so that [facility] could approve outpatient wound care for patient assistance. The patient was discharged in stable condition on 05/24 after all arrangements were made. - Time Spent with Patient Total time spent providing and/or coordinating discharge services: Greater than 30 minutes Exam Vital signs: Vital Signs 05/23/18 16:56 05/23/18 20:00 05/24/18 00:00 Temperature 100.2 F H 98.3 F Pulse Rate 68 61 Respiratory Rate 20 18 18 Blood Pressure 161/78 H 137/68 Pulse Oximetry 95 95 05/24/18 04:00 05/24/18 08:00 05/24/18 12:00 Temperature 98.4 F 98.2 F 98.1 F Pulse Rate 53 L 55 L 59 L Respiratory Rate 17 18 18 Blood Pressure 133/65 150/75 H 137/69 Pulse Oximetry 95 97 98 Intake & Output 05/23/18 05/24/18 05/24/18 18:59 06:59 18:59 Intake Total 1010 / 1010 375 / 375 Output Total 1550 / 1550 960 / 960 Balance -540 / -540 -585 / -585 Weight 121.4 kg Intake: IV 50 / 50 100 / 100 Zosyn 3.375 GM Premix 50 ML @ 50 / 50 100 / 100 100 mls/hr IV.SIG Q6H [facility] Rx#: [id number] Oral 960 / 960 275 / 275 Output: Urine 1550 / 1550 960 / 960 Other: Date of Last Bowel Movement 05/20/18 05/20/18 Narrative: GENERAL: WN, WD male resting in bed in [facility]. SKIN: Warm and dry. HEENT: AT/NC. Pupils equal and round. MMM. NECK: Supple no tender LAD or JVD. HEART: RRR no m/r/g. LUNGS: CTAB without wheezes or crackles. ABDOMEN: +BS, soft, NT, ND. EXTREMITIES: B/L feet dressed with PARTH wraps. NEURO: Awake and alert. Nonfocal. PSYCH: Appropriate mood and affect. Results Procedures completed during hospitalization: 05/10 I&D dorsal and plantar surface right foot with Dr. Paulino 05/13 Right foot debridement and irrigation with second, third metatarsal head resection Left foot ulcer debridement 05/20 I&D Right foot with delayed primary closure with Dr. Kalyani Weldon on day of discharge: Labs from last 24 hours 05/24/18 05:48 Creatinine 1.24 Estimated GFR 60 L Random Vancomycin 18.4 Preliminary micro results at discharge 05/20/18 15:36 Wound Culture - Preliminary Wound - Foot S. aureus MRSA 05/13/18 15:44 Fungal Culture - Preliminary Wound - Foot No growth in 1 week 05/13/18 15:44 Mycobacterial Culture - Preliminary Wound - Foot No growth in 1 week 05/11/18 18:18 Mycobacterial Culture - Preliminary Wound - Foot No growth in 1 week 05/11/18 18:18 Fungal Culture - Preliminary Wound - Foot No growth in 1 week - Impressions ITS Impressions Chest X-Ray 05/10/18 21:36 CONCLUSION: The lungs are clear. Foot MRI 05/11/18 00:00 CONCLUSION: 1. Significant degenerative change within multiple joints with subarticular cystic formation and marrow edema as above. 2. Extensive degenerative edema involving the patient's foot diffusely with focal areas of somewhat limited tracking within the subcutaneous tissues particularly dorsally at the level of the distal third and fourth metatarsals, however no definite abscess is identified. 3. Nonspecific edema of the third distal metatarsal bone and calcaneus. Foot X-Ray 05/13/18 00:00 CONCLUSION: Postoperative deformity of the right forefoot following second and third toe amputations. Discharge Plan - Discharge Disposition Patient Disposition: 01 Discharge Home - Discharge Condition Condition: Good - Discharge Order Discharge Orders: Discharge Order (Routine); Ordered 05/24/18 Ordered By: Saundra Villegas - Discharge Details Anticipated Discharge Date: 05/24/18 - Physicians Team Primary Care Provider: Primary Care Jojo Goins Attending Provider: Vanessa Dacosta Other Providers: Chaitanya Paulino DPM ; Adelita Au MD
[2018-05-24 18:31] VITALS: BP 156/72; PULSE 58; TEMP 98.7; O2SAT 97
--- NOTE | 2018-05-25 18:34 | MP ---
cc: [facility] AJITH DATE OF OPERATION: 05/20/2018 DATE OF SURGERY: 05/20/2018 INDICATION FOR PROCEDURE: The patient presented initially with infection to the right foot. He underwent partial amputations and had an open wound residual to the right central forefoot area with an abscess to the dorsal foot that had been packed open. We discussed risks, benefits, and potential complications of surgery and that he needed to undergo delayed primary closure, if possible, to attempt to close the wound, but would likely still require packing to the dorsal aspect. He agreed to move forward with surgery. DESCRIPTION OF PROCEDURE: He was seen in preop holding by myself, nursing staff and anesthesia, where the correct patient, side, and site were all confirmed to be correct and the right foot. He was then taken to the surgical suite in supine position. Right foot was prepped and draped in normal sterile fashion. Following timeouts as per facility protocol, attention was directed to the right foot where it was irrigated with 3 liters normal saline. There was noted to be a wound to the dorsal aspect of the foot at the area of the central forefoot that appear to go down to level of bone. There was a little bit of fibrotic and necrotic tissue within the area. It did not appear to communicate to the plantar wound. There was a plantar central wound noted to the area where the third metatarsal head used to be. It was longitudinal in nature, going down to the level of bone as well. All fibrotic tissue was excisionally debrided down to the level of bone, but not including bone and all nonviable tissue was also removed using a #15 blade, curette and rongeur, followed by irrigation with normal saline 3 liters, and a culture was taken prior to delayed primary closure with 2-0 nylon to the plantar aspect of the right forefoot and then the dorsal aspect of the right forefoot was partially closed using 2-0 nylon, followed by packing with half-inch iodoform gauze to the central aspect of the wound. A dressing consisting of 4 x 4's, ABD x 2. cast padding and PARTH were applied to the right foot. He tolerated the procedure and anesthesia well without complications and will be nonweightbearing to the right foot and up in clinic in 1 week after discharge for a dressing change. He will need daily packing to the dorsal right foot per nursing and upon followup and would need to follow up in [facility], as the patient is uninsured, for continued wound care. SHORT OPERATIVE NOTE SURGEON: Bay Mandujano DPM ADJUNCT PROFESSOR: Staff. PREOPERATIVE DIAGNOSES: 1. Open wound to right foot except toes with complication. 2. Abscess, right foot. POSTOPERATIVE DIAGNOSES: 1. Open wound to right foot except toes with complication. 2. Abscess, right foot. PROCEDURE PERFORMED: Irrigation and debridement of right foot with delayed primary closure, right foot. PATHOLOGY: Culture, right foot. ANESTHESIA: MAC. ESTIMATED BLOOD LOSS: 20 mL. CONDITION: Stable. DISPOSITION: Nonweightbearing to the right foot, will need wound care center in followup as he is uninsured arranged prior to discharge within 1 week of discharge or patient will likely be readmitted very soon for further amputation and infection. HEMOSTASIS: No tourniquet utilized. AJITH Araujo/GUANAKO , 06:16 PM , 06:23 PM
[2018-05-26] MEDS ORDERED: Pharmacy Ordered Lab Info OTHER ONE (13:45)
== END 2018-05-24 20:00 | disposition home or self-care (01) ==
LOC: NEPE 17:23 → NEDA 05-11 03:08 → N04 05-11 18:27
PROVIDERS: ADMIT Family Medicine; ATTEND Family Medicine

== ENCOUNTER 2018-07-13 14:51 | Inpatient (IN) ==
[2018-07-13] MEDS ORDERED: Vancomycin Inj 1 GM/200 ML PIGGYBACK IV.SIG ONE (16:01)
[2018-07-13] MEDS ORDERED: Acetaminophen 500 MG Tablet PO ONE (16:01)
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
[2018-07-13] MEDS ORDERED: Vancomycin Inj 1,000 MG in Sodium Chlor 0.9% Inj 250 ML IV.SIG ONE ×2 (16:15→19:30)
[2018-07-13 16:32] LABS: Baso # (Auto) 0.1 th/mm3 (0.0-0.2); Baso % (Auto) 0.7 % (0.0-2.0); Eos % (Auto) 0.2 % (0.0-4.0); Hematocrit 38.4 % (39.0-51.0); Hemoglobin 12.8 gm/dL (13.0-17.0); Lymph # (Auto) 1.1 th/mm3 (1.0-4.8); Lymph % (Auto) 8.8 % (9.0-44.0); Mean Corpuscular HGB Conc 33.4 % (32.0-36.0); Mean Corpuscular Hemoglobin 27.9 pg (27.0-34.0); Mean Corpuscular Volume 83.6 fL (80.0-100.0); Mean Platelet Volume 6.9 fL (7.0-11.0); Mono # (Auto) 0.9 th/mm3 (0.0-0.9); Mono % (Auto) 7.5 % (0.0-8.0); Neut # (Auto) 10.1 th/mm3 (1.8-7.7); Neut % (Auto) 82.8 % (16.0-70.0); Platelet Count 304 th/mm3 (150-450); Red Cell Distribution Width 14.8 % (11.6-17.2); White Blood Count 12.2 th/mm3 (4.0-11.0)
[2018-07-13 16:53] LABS: Alanine Aminotransferase 19 U/L (12-78); Albumin 3.3 g/dL (3.4-5.0); Anion Gap 8 meq/L (5-15); Aspartate Aminotransferase 16 U/L (15-37); Blood Urea Nitrogen 15 mg/dL (7-18); Calcium 8.5 mg/dL (8.5-10.1); Carbon Dioxide 23.9 meq/L (21.0-32.0); Chloride 102 meq/L (98-107); Glomerular Filtration Rate 74 mL/min (>89); Glucose,Random 97 mg/dL (74-106); Sodium 134 meq/L (136-145)
[2018-07-13 16:54] LABS: Alkaline Phosphatase 94 U/L (45-117); Total Protein 7.9 g/dL (6.4-8.2)
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
[2018-07-13] MEDS ORDERED: Acetaminophen 325 MG Tablet PO PRN (17:03)
[2018-07-13] MEDS ORDERED: Naloxone Inj 0.4 MG/ML Vial IV.PUSH PRN (17:06)
[2018-07-13] MEDS ORDERED: Vancomycin Consult Pharmacy OTHER PRN (17:09)
[2018-07-13] MEDS ORDERED: Enoxaparin Inj 40 MG/0.4 ML Syringe SQ SCH (17:15)
[2018-07-13] MEDS: oxyCODONE/Acetaminophen 10/325 Tablet PO PRN (18:17)
[2018-07-13] MEDS: hydrALAZINE 25 MG Tablet PO SCH (20:09)
[2018-07-13] MEDS: Sod Chloride 0.9% Inj 1,000 ML IV.CONT SCH (20:09)
[2018-07-13] MEDS: Senna/Docusate Sodium 8.6/50 MG Tablet PO SCH (20:09)
[2018-07-13] MEDS: Lisinopril 20 MG Tablet PO SCH (20:11)
[2018-07-13] MEDS: amLODIPine 10 MG Tablet PO SCH (20:25)
[2018-07-14] MEDS: oxyCODONE/Acetaminophen 10/325 Tablet PO PRN ×3 (00:43→20:41)
[2018-07-14] MEDS: Sod Chloride 0.9% Inj 1,000 ML IV.CONT SCH (05:15)
[2018-07-14 06:12] LABS: Baso # (Auto) 0.1 th/mm3 (0.0-0.2); Baso % (Auto) 1.3 % (0.0-2.0); Eos # (Auto) 0.1 th/mm3 (0.0-0.4); Eos % (Auto) 0.6 % (0.0-4.0); Hematocrit 35.8 % (39.0-51.0); Hemoglobin 11.9 gm/dL (13.0-17.0); Lymph # (Auto) 1.5 th/mm3 (1.0-4.8); Lymph % (Auto) 15.5 % (9.0-44.0); Mean Corpuscular HGB Conc 33.2 % (32.0-36.0); Mean Corpuscular Hemoglobin 27.7 pg (27.0-34.0); Mean Corpuscular Volume 83.6 fL (80.0-100.0); Mean Platelet Volume 7.3 fL (7.0-11.0); Mono # (Auto) 1.1 th/mm3 (0.0-0.9); Neut % (Auto) 71.6 % (16.0-70.0); Platelet Count 267 th/mm3 (150-450); Red Blood Count 4.28 mil/mm3 (4.50-5.90); Red Cell Distribution Width 14.5 % (11.6-17.2); White Blood Count 9.7 th/mm3 (4.0-11.0)
[2018-07-14 06:41] LABS: Calcium 8.3 mg/dL (8.5-10.1); Carbon Dioxide 24.9 meq/L (21.0-32.0); Potassium 3.6 meq/L (3.5-5.1)
[2018-07-14 06:43] LABS: Vancomycin,Random 21.2 Comment
[2018-07-14 08:05] LABS: Amphetamine Screen,Urine Pos (Neg); Barbiturate Screen,Urine Neg (Neg); Cannabinoid Screen,Urine Pos (Neg); Cocaine Screen,Urine Neg (Neg); Opiate Screen,Urine Neg (Neg)
[2018-07-14] MEDS: Lisinopril 20 MG Tablet PO SCH ×2 (08:37→20:41)
[2018-07-14] MEDS: Senna/Docusate Sodium 8.6/50 MG Tablet PO SCH ×2 (08:37→20:43)
[2018-07-14] MEDS: hydrALAZINE 25 MG Tablet PO SCH ×2 (08:38→20:41)
[2018-07-14] MEDS: amLODIPine 10 MG Tablet PO SCH (08:38)
--- NOTE | 2018-07-14 09:28 | P.PNFP ---
Subjective Interval history: Seen with resident team this morning. Patient resting in bed this morning. Area of cellulitis is significantly decreased compared to yesterday. We highlighted the area yesterday and it has regressed nicely overnight. The right leg is still warm to the touch. It has a small area of eschar around the midshin, but it is not draining. He still has leg pain but it is less than yesterday and well controlled with pain medication. He has not felt feverish overnight. He does not feel nauseous and had no vomiting. No chest pain or shortness of breath. No abdominal pain. Results - Labs Result diagrams: 07/14/18 05:23 07/14/18 05:23 Abnormal lab results 07/13/18 07/13/18 07/14/18 Range/Units 16:00 16:00 05:23 WBC 12.2 H (4.0-11.0) th/mm3 RBC 4.28 L (4.50-5.90) mil/mm3 Hgb 12.8 L 11.9 L (13.0-17.0) gm/dL Hct 38.4 L 35.8 L (39.0-51.0) % MPV 6.9 L (7.0-11.0) fL Neut % (Auto) 82.8 H 71.6 H (16.0-70.0) % Lymph % (Auto) 8.8 L (9.0-44.0) % Peach % (Auto) 11.0 H (0.0-8.0) % Neut # (Auto) 10.1 H (1.8-7.7) th/mm3 Peach # (Auto) 1.1 H (0.0-0.9) th/mm3 Sodium 134 L (136-145) meq/L Estimated GFR 74 L (>89) mL/min Calcium (8.5-10.1) mg/dL Albumin 3.3 L (3.4-5.0) g/dL Ur Amphetamines Screen (Neg) U Cannabinoids Screen (Neg) 07/14/18 07/14/18 Range/Units 05:23 06:44 WBC (4.0-11.0) th/mm3 RBC (4.50-5.90) mil/mm3 Hgb (13.0-17.0) gm/dL Hct (39.0-51.0) % MPV (7.0-11.0) fL Neut % (Auto) (16.0-70.0) % Lymph % (Auto) (9.0-44.0) % Peach % (Auto) (0.0-8.0) % Neut # (Auto) (1.8-7.7) th/mm3 Peach # (Auto) (0.0-0.9) th/mm3 Sodium (136-145) meq/L Estimated GFR 73 L (>89) mL/min Calcium 8.3 L (8.5-10.1) mg/dL Albumin (3.4-5.0) g/dL Ur Amphetamines Screen Pos H (Neg) U Cannabinoids Screen Pos H (Neg) Short CBC 07/13/18 07/14/18 Range/Units 16:00 05:23 WBC 12.2 H 9.7 (4.0-11.0) th/mm3 Hgb 12.8 L 11.9 L (13.0-17.0) gm/dL Hct 38.4 L 35.8 L (39.0-51.0) % Plt Count 304 267 (150-450) th/mm3 BMP 07/13/18 07/14/18 16:00 05:23 Sodium 134 L 138 Potassium 4.0 3.6 Chloride 102 104 Carbon Dioxide 23.9 24.9 BUN 15 15 Creatinine 1.03 1.04 Calcium 8.5 8.3 L Liver Function 07/13/18 Range/Units 16:00 Total Bilirubin 0.7 (0.2-1.0) mg/dL AST 16 (15-37) U/L ALT 19 (12-78) U/L Alkaline Phosphatase 94 (45-117) U/L Albumin 3.3 L (3.4-5.0) g/dL Physical Exam Vital signs: Vital Signs 07/13/18 15:00 07/13/18 17:23 07/13/18 18:00 Temperature 101.6 F H 99.7 F H 103 F H Pulse Rate 105 H Respiratory Rate 17 Blood Pressure 121/78 Pulse Oximetry 95 07/13/18 18:43 07/13/18 20:00 07/14/18 00:00 Temperature 98.6 F 98.4 F 98.8 F Pulse Rate 90 81 64 Respiratory Rate 22 18 18 Blood Pressure 126/64 117/60 137/65 Pulse Oximetry 93 L 96 98 07/14/18 04:00 07/14/18 06:57 07/14/18 08:00 Temperature 100.2 F H 99.5 F 98.4 F Pulse Rate 76 68 Respiratory Rate 18 18 Blood Pressure 113/56 L 126/64 Pulse Oximetry 94 L 97 Intake & Output 07/13/18 07/14/18 07/14/18 18:59 06:59 18:59 Intake Total 250 / 250 1250 / 1250 Output Total 600 / 600 Balance 250 / 250 650 / 650 Weight 117.3 kg 117.1 kg Intake: IV 250 / 250 1250 / 1250 NS Inj 1,000 ML @ 110 mls/hr IV 1000 / 1000 .CONT .Q9H6M G[facility]ON Rx#:[id number] Vancomycin Inj 1,000 MG In NS 250 / 250 250 / 250 Inj 250 ML @ 250 mls/hr IV.SIG ONCE ONE Rx#:[id number] Output: Urine 600 / 600 Narrative: GENERAL: Lying in bed, much more comfortable today SKIN: Right lower leg erythematous, warm to the touch, with small area of eschar on anterior rosales, not draining. Significantly improved from yesterday, but still significant. Area marked with pen yesterday, and area is regressed from marked area. No abscess appreciated. EYES: No conjunctivitis ENT: No nasal bleeding or discharge. Mucous membranes pink and moist. Poor dentition CARDIOVASCULAR: Regular rate and rhythm. Dorsalis pedis pulses difficult to appreciate, somewhat slow capillary refill in feet, somewhat hairless lower legs , and hemosiderin changes to the skin of the lower legs. RESPIRATORY: No accessory muscle use. Clear to auscultation. Breath sounds equal bilaterally. GASTROINTESTINAL: Abdomen soft, non-tender, nondistended. MUSCULOSKELETAL: Multiple wounds on toes as well as dorsum of the foot that are scabbed over. Missing second toe. NEUROLOGICAL: Awake and alert. Assessment and Plan - Assessment (1) Cellulitis Code(s): L03.90 - Cellulitis, unspecified Status: Acute Plan: Due to recent hospitalization for osteomyelitis and initial systemic symptoms, suspicion for MRSA. Area is right lower leg. Day 2 it is improving with IV vancomycin. Small area of eschar on anterior rosales, non draining. No abscess appreciated. Hemoglobin A1C is normal. Lower extremities with slower cap refill , somewhat hairless skin, possible peripheral vascular disease. 100.2 Tmax overnight, afebrile today, and white count trended to normal. -IV antibiotic: vancomycin with pharmacy consult, transition to PO with MRSA coverage after afebrile and doing well for 24 hours, possibly tomorrow. -Consult to wound care physician, Dr. Wade, who he sees outpatient -May benefit from obtaining culture from area of eschar -Continue Percocet for pain management. (2) HTN (hypertension) Code(s): I10 - Essential (primary) hypertension Status: Acute Plan: Continue home medications, but with hold parameters for low blood pressures. -Norvasc 10 mg daily -Clonidine 0.2 mg every 12 hours -Hydralazine 25 mg twice daily -Lisinopril 20 mg twice daily (3) Neuropathy Code(s): G62.9 - Polyneuropathy, unspecified Status: Acute Plan: Reported history of neuropathy with history of foot ulcers and toe amputation, unclear etiology, A1C is normal. Possible underlying peripheral vascular disease present. Would be interested to see results of KORI if not done in the past. (4) Hx of drug abuse Code(s): Z87.898 - Personal history of other specified conditions Status: Acute Plan: UDS and alcohol level ordered, UDS showing amphetamines and THC. (5) Nutrition, metabolism, and development symptoms Code(s): R63.8 - Other symptoms and signs concerning food and fluid intake Status: Acute Plan: Fluids: Oral Diet: Regular adult diet Electrolytes: Replete as necessary DVT: prophylaxis Lovenox - Assessment and Plan Discharge Planning: If continuing to do well tomorrow, will likely transition to oral antibiotics, clindamycin or Bactrim for MRSA coverage. Will need close follow up with PCP and wound care after discharge. Would benefit from further workup for frequent ulcers.
[2018-07-14] MEDS: Vancomycin Inj 1,500 MG in Sodium Chlor 0.9% Inj 500 ML IV.SIG SCH ×2 (11:31→23:59)
--- NOTE | 2018-07-14 14:19 | ECHRPT ---
EXAM DATE: 07/14/2018 2:09 PM EDT AGE/SEX: 57 years / Male INDICATIONS: right leg cellulitis CLINICAL DATA: This is the patient's initial encounter. Patient reports that signs and symptoms have been present for 4 - 6 days and indicates a pain score of 5/10. MEDICAL/SURGICAL HISTORY: . amputation toe right foot, GI bleed, hypertension, history drug use , neuropathy, ulcer . toe amputation COMPARISON: No prior exams available for comparison. TECHNIQUE: Four-cuff ankle and brachial pressures were obtained. Pulse cuff waveform tracings of the ankles were recorded, and ankle-brachial indices were calculated. PRESSURES (mmHg): Brachial (arm) : RIGHT: IV SITE, LEFT: 102 Ankle : RIGHT: 93, LEFT: 117 KORI : RIGHT: 0.91, LEFT: 1.15 TBI : RIGHT: 0.44, LEFT: 0.67 FINDINGS: Pulsed-Cuff Waveform: There are good upstroke and a dicrotic downstroke of the tracings. Other: None. CONCLUSION: 1. Normal range ankle-brachial indices. 2. Moderately decreased right and mildly decreased left toe brachial indices which may reflect small vessel disease. Electronically signed by: Vasiliy Wells MD 07/14/2018 2:18 PM EDT
[2018-07-15 07:07] LABS: Baso # (Auto) 0.1 th/mm3 (0.0-0.2); Baso % (Auto) 1.4 % (0.0-2.0); Eos # (Auto) 0.2 th/mm3 (0.0-0.4); Eos % (Auto) 2.6 % (0.0-4.0); Hematocrit 34.9 % (39.0-51.0); Hemoglobin 11.6 gm/dL (13.0-17.0); Lymph # (Auto) 1.4 th/mm3 (1.0-4.8); Lymph % (Auto) 18.7 % (9.0-44.0); Mean Corpuscular HGB Conc 33.3 % (32.0-36.0); Mean Corpuscular Hemoglobin 28.1 pg (27.0-34.0); Mean Corpuscular Volume 84.3 fL (80.0-100.0); Mean Platelet Volume 7.8 fL (7.0-11.0); Mono # (Auto) 0.9 th/mm3 (0.0-0.9); Mono % (Auto) 11.6 % (0.0-8.0); Neut # (Auto) 4.9 th/mm3 (1.8-7.7); Neut % (Auto) 65.7 % (16.0-70.0); Platelet Count 253 th/mm3 (150-450); Red Blood Count 4.14 mil/mm3 (4.50-5.90); Red Cell Distribution Width 14.7 % (11.6-17.2); White Blood Count 7.5 th/mm3 (4.0-11.0)
[2018-07-15 07:51] LABS: Anion Gap 7 meq/L (5-15); Blood Urea Nitrogen 13 mg/dL (7-18); Calcium 8.4 mg/dL (8.5-10.1); Carbon Dioxide 25.7 meq/L (21.0-32.0); Chloride 105 meq/L (98-107); Glomerular Filtration Rate Greater Than 89 mL/min (>89); Glucose,Random 82 mg/dL (74-106); Potassium 3.9 meq/L (3.5-5.1); Sodium 138 meq/L (136-145)
[2018-07-15] MEDS: Lisinopril 20 MG Tablet PO SCH (09:30)
[2018-07-15] MEDS: amLODIPine 10 MG Tablet PO SCH (09:30)
[2018-07-15] MEDS: hydrALAZINE 25 MG Tablet PO SCH (09:31)
[2018-07-15] MEDS: Senna/Docusate Sodium 8.6/50 MG Tablet PO SCH (09:31)
[2018-07-15] MEDS: oxyCODONE/Acetaminophen 10/325 Tablet PO PRN (09:32)
--- NOTE | 2018-07-15 12:33 | P.PNWCN ---
Wound Care Nurse Consult Description: Wound consult ordered by for wound management. Communicated with: Lisseth EDEN, Recommendation: 1. Cleanse Right midline rosales area with normal saline pat dry, Apply Cavilon skin prep to periwound. 2. Gently pack incision/cavity with Maxorb cut into strips leaving tail exposed ,Cover with dry gauze secure with border gauze or rolled gauze/paper tape. 3. Change dressing daily or as needed for dislodgement/exudate management. 4. Follow up with out patient wound center if needed 5. Please provide patient with 2 weeks of supplies upon discharge. Additional information: Patient was seen today by writer technical publications for wound management of abscess to right midline rosales region.Patient well known to writer technical publications.Dressing removed with out difficulty affected area cleansed with normals brinda pat dry .Incision line is dry and scabbed over mechanical debridement performed with little success .Induration noted ~10cm circumferentially to scab very warm to touch as well as tender.[place] gel and saline moistened gauze applied to wound base to soften scab for removal and packing.Lisseth EDEN to apply dressing this afternoon.No further questions or concern. Wound/Pressure Injury - Wound Right Rosales Wound Assessment: Ongoing Wound Type: Abscess Is This a Chronic Wound: No Requested from Provider a Wound Care Consult: No (Ashleigh EDEN,[facility] seen 07/15) Wound Bed Appearance: Red Surrounding Tissue Temperature: Warm Drainage Amount: None Dressing Status: Changed Wound Packing Type: Gauze Pads Wound Dressing Change Date: 07/15/18
--- NOTE | 2018-07-15 15:27 | P.PNFP ---
Subjective Interval history: Patient seen today on rounds. He states that he is starting to feel better and that the wound care team is taking good care of his cellulitis. He says they are trying to help it drain and will continue to monitor him outpatient. He denies any fevers, chills, N/V, constipation, diarrhea, chest pain, or SOB. His pain is minimal and being controlled well. <Cristiano Perez - 07/15/18 15:27> Results - Labs Result diagrams: 07/15/18 04:41 07/15/18 04:41 <Iain Lackey - 07/15/18 21:20> Abnormal lab results 07/15/18 07/15/18 Range/Units 04:41 04:41 RBC 4.14 L (4.50-5.90) mil/mm3 Hgb 11.6 L (13.0-17.0) gm/dL Hct 34.9 L (39.0-51.0) % [place] % (Auto) 11.6 H (0.0-8.0) % Calcium 8.4 L (8.5-10.1) mg/dL Short CBC 07/15/18 Range/Units 04:41 WBC 7.5 (4.0-11.0) th/mm3 Hgb 11.6 L (13.0-17.0) gm/dL Hct 34.9 L (39.0-51.0) % Plt Count 253 (150-450) th/mm3 [facility] 07/15/18 04:41 Sodium 138 Potassium 3.9 Chloride 105 Carbon Dioxide 25.7 BUN 13 Creatinine 0.86 Calcium 8.4 L <Iain Lackey - 07/15/18 21:20> Abnormal lab results 07/15/18 07/15/18 Range/Units 04:41 04:41 RBC 4.14 L (4.50-5.90) mil/mm3 Hgb 11.6 L (13.0-17.0) gm/dL Hct 34.9 L (39.0-51.0) % [place] % (Auto) 11.6 H (0.0-8.0) % Calcium 8.4 L (8.5-10.1) mg/dL Short CBC 07/15/18 Range/Units 04:41 WBC 7.5 (4.0-11.0) th/mm3 Hgb 11.6 L (13.0-17.0) gm/dL Hct 34.9 L (39.0-51.0) % Plt Count 253 (150-450) th/mm3 BMP 07/15/18 04:41 Sodium 138 Potassium 3.9 Chloride 105 Carbon Dioxide 25.7 BUN 13 Creatinine 0.86 Calcium 8.4 L <Cristiano Perez - 07/15/18 15:27> Physical Exam Vital signs: Vital Signs 07/15/18 00:00 07/15/18 04:00 07/15/18 07:37 Temperature 98.3 F 98.3 F 98.1 F Pulse Rate 61 64 80 Respiratory Rate 19 21 24 Blood Pressure 116/57 L 124/64 147/77 H Pulse Oximetry 95 97 07/15/18 07:58 07/15/18 12:00 07/15/18 16:00 Temperature 98.2 F 98.4 F 97.7 F Pulse Rate 80 71 79 Respiratory Rate 24 23 22 Blood Pressure 147/77 H 133/71 139/77 Pulse Oximetry 97 98 99 Intake & Output 07/15/18 07/15/18 07/16/18 06:59 18:59 06:59 Intake Total 735 / 735 Output Total 350 / 350 Balance 385 / 385 Weight 117.3 kg Intake: IV 515 / 515 Vancomycin Inj 1,500 MG In NS 515 / 515 Inj 500 ML @ 250 mls/hr IV.SIG Q12H [facility] Rx#:[id number] Oral 220 / 220 Output: Urine 350 / 350 <Iain Lackey - 07/15/18 21:20> Vital Signs 07/14/18 16:00 07/14/18 20:00 07/15/18 00:00 Temperature 98.7 F 99.0 F 98.3 F Pulse Rate 65 77 61 Respiratory Rate 18 21 19 Blood Pressure 106/56 L 136/63 116/57 L Pulse Oximetry 97 97 95 07/15/18 04:00 07/15/18 07:37 07/15/18 07:58 Temperature 98.3 F 98.1 F 98.2 F Pulse Rate 64 80 80 Respiratory Rate 21 24 24 Blood Pressure 124/64 147/77 H 147/77 H Pulse Oximetry 97 97 07/15/18 12:00 Temperature 98.4 F Pulse Rate 71 Respiratory Rate 23 Blood Pressure 133/71 Pulse Oximetry 98 Intake & Output 07/14/18 07/15/18 07/15/18 18:59 06:59 18:59 Intake Total 1994 735 / 735 Output Total 400 / 400 350 / 350 Balance 1595 / 1595 385 / 385 Weight 117.3 kg Intake: IV 1515 / 1515 515 / 515 NS Inj 1,000 ML @ 110 mls/hr IV 1000 / 1000 .CONT .Q9H6M [facility] Rx#:[id number] Vancomycin Inj 1,500 MG In NS 515 / 515 515 / 515 Inj 500 ML @ 250 mls/hr IV.SIG Q12H [facility] Rx#:[id number] Oral 480 / 480 220 / 220 Output: Urine 400 / 400 350 / 350 Other: # Bowel Movements 0 <Cristiano Perez - 07/15/18 15:27> Narrative: GENERAL: Lying in bed looking comfortable SKIN: Right lower leg is less erythematous than yesterday, warm to the touch, and still not draining. The bandage wound care placed is clean and try. Minial tenderness overlying the bandage. The cellulitis area was marked with a pen and has decreased since admission but is still significant. EYES: No conjunctivitis ENT: No nasal bleeding or discharge. Mucous membranes pink and moist. Poor dentition CARDIOVASCULAR: Regular rate and rhythm. Dorsalis pedis pulses difficult to appreciate, somewhat slow capillary refill in feet, somewhat hairless lower legs , and hemosiderin changes to the skin of the lower legs. RESPIRATORY: No accessory muscle use. Clear to auscultation. Breath sounds equal bilaterally. GASTROINTESTINAL: Abdomen soft, non-tender, nondistended. MUSCULOSKELETAL: Multiple wounds on toes as well as dorsum of the foot that are scabbed over. Missing second toe on right foot. NEUROLOGICAL: Awake and alert. <Cristiano Perez - 07/15/18 15:27> Assessment and Plan - Assessment (1) Cellulitis Code(s): L03.90 - Cellulitis, unspecified Status: Acute (2) HTN (hypertension) Code(s): I10 - Essential (primary) hypertension Status: Acute (3) Neuropathy Code(s): G62.9 - Polyneuropathy, unspecified Status: Acute (4) Hx of drug abuse Code(s): Z87.898 - Personal history of other specified conditions Status: Acute (5) Nutrition, metabolism, and development symptoms Code(s): R63.8 - Other symptoms and signs concerning food and fluid intake Status: Acute <Iain Lackey - 07/15/18 21:20> - Assessment and Plan Cellulitis Due to recent hospitalization for osteomyelitis and initial systemic symptoms, suspicion for MRSA. Area is right lower leg. Day 3 it is improving with IV vancomycin. Wound was wrapped this morning by wound care and the dressing is clean and dry. No abscess appreciated. Hemoglobin A1C is normal. Lower extremities with slower cap refill, somewhat hairless skin, possible peripheral vascular disease. afebrile today and white count trended to normal. Blood cultures are negative to date. -D/C IV Vancomycin due to clinical improvement of the patient -Begin PO Bactrim DS 2 pills BID for 14 days- Using Bactrim because it's free at [employer] and he has no financial ability to pay for medication. -Dr. Wade, wound care, is following and will continue to manage on outpatient basis -Continue Percocet for pain management. -Patient is self pay so discussed with case management about getting access to medication and setting up patient assistance -He has clear follow up with wound care and has clinically improved with the antibiotics so we will discharge him home with the PO Bactrim. HTN (hypertension) Continue home medications, but with hold parameters for low blood pressures. -Norvasc 10 mg daily -Clonidine 0.2 mg every 12 hours -Hydralazine 25 mg twice daily -Lisinopril 20 mg twice daily Neuropathy Reported history of neuropathy with history of foot ulcers and toe amputation, unclear etiology, A1C is normal. Possible underlying peripheral vascular disease present. Would be interested to see results of KORI if not done in the past. -KORI was normal Hx of drug abuse UDS and alcohol level ordered, UDS showing amphetamines and THC. FEN/PPx: Fluids: Oral Diet: Regular adult diet Electrolytes: Replete as necessary DVT: prophylaxis Lovenox <Cristiano Perez - 07/15/18 16:05> - Attending Attestation The exam, history, and the medical decision-making described in the above note were completed with the assistance of the resident physician. I reviewed and agree with the findings presented. I attest that I had a [id number] encounter with the patient on the same day, and personally performed and documented my assessment and findings in the medical record. Patient seen and examined with resident/medical student team. He presented with right lower leg cellulitis, significantly improved with IV vancomycin, presumed to be MRSA given systemic systems and rapidity of onset. No drainage or abscess , and nothing to drain for cultures. He remains afebrile and with no leukocytosis, and reports he feels much better now and back to baseline. Will treat with Bactrim as he can get the medication for free and it will cover MRSA. Arranged for follow up with wound care as an outpatient. Discussed discharge plan with patient at length. <Iain Lackey - 07/15/18 21:20>
[2018-07-15 16:04] VITALS: BP 139/77; PULSE 79; RESP 22; TEMP 97.7; O2SAT 99
[2018-07-15] MEDS ORDERED: Pharmacy Ordered Lab Info OTHER ONE (22:45)
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
== END 2018-07-15 17:42 | disposition home or self-care (01) ==
LOC: NEPD 14:51 → NEDA 16:42 → N04 18:38
PROVIDERS: ADMIT Family Medicine; ATTEND Family Medicine